=== PATIENT | female | born 1980 | race Caucasian/White ===

== ENCOUNTER 2021-12-08 23:09 | Emergency (ER) | payer OTHER, SELFPAY ==
--- NOTE | 2021-12-08 23:15 | RT.EKG_ITS ---
APPROVED REPORT Exam: Resting ECG Reason for Exam: IRREGULAR HEART BEAT Patient Location: E HR:66 bpm ECG Measurements Heart Rate 66 AXIS MS 145 P 78 QRSd 87 QRS 51 QT 407 T -11 QTc 427 Conclusion Sinus rhythm...normal P axis, V-rate 60- 99 Anteroseptal infarct, old...Q >40mS, V1-V2 Physician: No stemi, inverted t wave in V1 and III. Intervals normal
[2021-12-08 23:18] VITALS: BP 149/82; PULSE 73; RESP 16; TEMP 36.6
[2021-12-08 23:48] LABS: Abs Immature Grans 0.02 10^3/uL (0.0-0.06); Absolute Basophil Count 0.04 10^3/uL (0.0-0.2); Absolute Eosinophil Count 0.07 10^3/uL (0.0-0.7); Absolute Lymphocyte Count 1.85 10^3/uL (1.2-3.4); Absolute Monocyte Count 0.45 10^3/uL (0.1-0.8); Basophils % 0.6; Eosinophils % 1.1; HCT 42.8 % (36.0-46.0); HGB 14.8 g/dL (11.2-15.7); Immature Grans % 0.3; Lymphocytes % 28.3; MCHC 34.6 % (32.0-36.0); MCV 87 fL (80-95); MPV 9.6 fL (8.0-11.0); Monocytes % 6.9; Neutrophils % 62.8; Platelet Count 269 10^3/uL (130-400); RBC 4.93 10^6/uL (3.93-5.22); RDW-SD 38.2 fL; WBC 6.53 10^3/uL (4.4-10.8)
[2021-12-08] MEDS: Normal Saline 1,000 ML 1000 ML IV (23:49)
[2021-12-09] VITALS (50 sets, daily range): BP systolic 94–111; BP diastolic 43–66; PULSE 43–65; RESP 7–21; O2SAT 95–100
[2021-12-09 00:15] LABS: ALT 28 U/L (14-59); AST 24 U/L (15-37); Alkaline Phosphatase 76 U/L (46-116); Anion Gap 9.9 mmol/L (3-11); BUN 19 mg/dL (7-18); Bilirubin, Total 0.4 mg/dL (0.2-1.0); CO2 25.1 mmol/L (21.0-32.0); CREATININE 0.9 mg/dL (0.55-1.02); Calcium 9.3 mg/dL (8.5-10.1); Chloride 104 mmol/L (98-107); Glucose 107 mg/dL (74-106); Magnesium 1.9 mg/dL (1.8-2.4); Potassium 3.2 mmol/L (3.5-5.1); Sodium 139 mmol/L (136-145); TSH (W/Ref FT4) 3.41 uIU/mL (0.36-3.74); Total Protein 7.1 g/dL (6.4-8.2); Troponin I < 50 ng/L (<or=60)
[2021-12-09 00:30] LABS: D-Dimer 159 ng/mlFEU (<500)
[2021-12-09 00:40] LABS: NT-proBNP 118 pg/mL (<300)
[2021-12-09] MEDS: Potassium Chloride 20 MEQ TABCR 40 MEQ PO (01:05)
--- NOTE | 2021-12-09 01:44 | W.ED.GENAD ---
Discharge Plan Disposition Patient Disposition: HOME Condition: Good Discharge Details Clinical Impression: Cardiac dysrhythmia ED Provider: Sanjay Gatica Discharge Instructions Instructions: Supraventricular Tachycardia (ED) Additional Instructions: At this time based on your history and your work-up it is suspected that you had supraventricular tachycardia that caused her heart rate to go up. Unfortunately since we are not able to catch this on the monitor we we will need to perform a prolonged monitoring of your heart. Holter monitor has been placed, and this will record any potential dysrhythmia. Please contact your primary care provider and follow-up with them by early next week to discuss the results and potential treatment management. For the next week please avoid any vigorous activity or strenuous exercise. Please avoid any caffeine, chocolate, or stimulants. Please stay well-hydrated and do your best to relax. If you notice any worsening of your symptoms, or any new symptoms such as vomiting, diarrhea, fever, chills, shortness of breath, chest pain, numbness, weakness, or fainting , please return immediately to the emergency department for reevaluation. Please follow up with your primary care provider as soon as possible for reassessment and reevaluation. As always, it was a pleasure participating in your medical care today. 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 Patient states that at 2:30 PM she was sitting doing normal activity when she noticed her heart rate climb. She was wearing an apple watch and monitored it and her heart rate went up to 200 bpm. It lasted for 2 to 3 minutes and then resolved on its own. Patient was fine throughout the rest of the day, then at 9:45 at night while she was resting in bed her heart rate again climbed and raised to 150, it lasted for about a minute and then resolved on its own. During these episodes she denies any chest pain, chest tightness, lightheadedness, numbness, tingling or weakness. She states that she did exercise earlier today and went for a long bike ride where her average heart rate was around 150. She had no complications or abnormalities then. She drank a single cup of coffee this morning which is normal for her. She denies any cocaine use. She denies any illicit drug use whatsoever. She denies any previous personal or family history of cardiac etiology or problems. She is not on any control. She denies any recent long flights or procedures. No other complaints at this time. Currently she states she feels asymptomatic. Physical exam demonstrates a notably well-appearing, fit, and in no acute distress female. She has no large neck girdle, no clinical evidence of sleep apnea. Review of her apple watch data demonstrates that her heart rate did get up to 200 in the afternoon and 150 in the evening. Unfortunately she did not perform the EKG function while this occurred. With no family history of SVT, and no other significant concerning risk factors of cocaine, or history of thyroid dysfunction, I would suspect that this episode was just a episode of SVT rather than A. fib or V. tach especially as she had no other clinical symptomatology of concern for lightheadedness or syncope. Bedside limited echo was performed and demonstrates no signs of significant abnormality, pericardial effusion, or diminished ejection fraction. We will rehydrate, monitor for concerning etiologies, get a D-dimer to rule out potential blood clot, evaluate for heart strain and get a proBNP, monitor closely and reassess 1:57 AM Laboratory work-up is returned and is notably unremarkable, CBC and electrolytes are all normal aside for a potassium that is slightly low at 3.2. She will be given 40 mEq of potassium orally. Thyroid function normal, troponin normal, proBNP normal, D-dimer negative. Patient has remained on the cardiac rehab nurse here and has had no further episodes of SVT or dysrhythmia whatsoever. EKG is unremarkable with normal intervals. Patient feels well. I discussed inpatient admission, versus discharge. Patient's is currently in the [facility], she does have her children at home but someone is watching them. At this time through shared decision-making process the patient like to hold off on admission, but we will watch the patient here in the emergency department this evening, and have respiratory therapy placed a Holter monitor in the morning. 7:01 AM Patient was monitored throughout the night, she is doing well, had no further episodes of SVT. Patient remained stable for discharge. We will plan Holter monitor and discharge. She will contact primary care provider in [facility] for close follow-up. Discussed red flags which to return. I have extensively reviewed the treatment plan and discharge instructions with the patient. I have addressed all patient concerns at this time. The patient was made aware of what symptoms to monitor for that would warrant a return to the emergency department. Discussed the plan with the patient, they demonstrate verbal understanding and agreement with our assessment and plan at this time. The documentation in this chart was dictated using [employer] dictation software. Please excuse any dictation errors. HPI General Date/Time Provider Initiated Documentation: 12/08/21 23:16. 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 Patient states that at 2:30 PM she was sitting doing normal activity when she noticed her heart rate climb. She was wearing an apple watch and monitored it and her heart rate went up to 200 bpm. It lasted for 2 to 3 minutes and then resolved on its own. Patient was fine throughout the rest of the day, then at 9:45 at night while she was resting in bed her heart rate again climbed and raised to 150, it lasted for about a minute and then resolved on its own. During these episodes she denies any chest pain, chest tightness, lightheadedness, numbness, tingling or weakness. She states that she did exercise earlier today and went for a long bike ride where her average heart rate was around 150. She had no complications or abnormalities then. She drank a single cup of coffee this morning which is normal for her. She denies any cocaine use. She denies any illicit drug use whatsoever. She denies any previous personal or family history of cardiac etiology or problems. She is not on any control. She denies any recent long flights or procedures. No other complaints at this time. Currently she states she feels asymptomatic. Related Data Allergies Allergy/AdvReac Type Severity Reaction Status Date / Time No Known Allergies Allergy Unverified 12/08/21 23:25 General Stated Complaint: Palpitatns ELENA: 2 Review of Systems All systems reviewed & are unremarkable except as noted in HPI and below PFSH All Active Problems (Updated 12/09/21 @ 02:01 by Sanjay Gatica DO) Cardiac dysrhythmia (Acute) Social History Smoking risk assessment performed?: No Exam Narrative Exam Narrative: 1.Const: Well-nourished, Well-developed, appearing stated age 2.Eyes: PERRL, no conjunctival injection, and symmetrical lids. 3.ENT: Atraumatic external nose and ears. Moist MM. Neck: Symmetric, trachea midline, No thyromegaly. 4.CVS: +S1/S2, No murmurs or gallops. Peripheral pulses 2+ and equal in all extremities. Brisk capillary refill in all extremities. 5.RESP: Unlabored respiratory effort. Clear to auscultation bilaterally. No wheezes rales or rhonchi 6.GI: Soft, Nontender/Nondistended, No hepatosplenomegaly. No guarding or rebound. 7.MSK: Normocephalic/Atraumatic, Extremities w/o deformity or ttp No cyanosis or clubbing, Normal movement of all extremities 8.Skin: Warm, Dry. No rashes or lesions. 9.Neuro: bottom brusher II-XII grossly intact. Sensation grossly intact, no focal neurologic deficits. 10.Psych: (AAO) x3. Appropriate mood and affect Course Vital Signs Vital signs: Vital Signs Temperature 36.6 C 12/08/21 23:18 Pulse 73 12/08/21 23:18 Respiratory Rate 16 12/08/21 23:18 Blood Pressure 149/82 H 12/08/21 23:18 Temperature 36.6 C 12/08/21 23:18 Temperature Source Skin 12/08/21 23:18 Pulse 73 12/08/21 23:18 Respiratory Rate 16 12/08/21 23:18 Blood Pressure 149/82 H 12/08/21 23:18 Blood Pressure Position Supine 12/08/21 23:18 Oxygen Delivery Method Room Air 12/08/21 23:18 Oxygen Flow Rate 0 12/08/21 23:18 End Tidal Co2 0 12/08/21 23:18 Lab/Test Results Lab/Test Results: Laboratory Tests Range/Units 12/08/21 12/08/21 12/08/21 23:45 23:45 23:45 WBC (4.4-10.8) 10^3/uL 6.53 RBC (3.93-5.22) 10^6/uL 4.93 Hgb (11.2-15.7) g/dL 14.8 Hct (36.0-46.0) % 42.8 MCV (80-95) fL 87 MCH (27.0-33.0) pg 30.0 MCHC (32.0-36.0) % 34.6 RDW (11.7-14.6) % 12.0 Plt Count (130-400) 10^3/uL 269 MPV (8.0-11.0) fL 9.6 Immature Gran % 0.3 Neutrophils % 62.8 Lymphocytes % 28.3 Monocytes % 6.9 Eosinophils % 1.1 Basophils % 0.6 Nucleated RBC % (0.0-0.3) % 0.0 Absolute Neutrophils (1.2-6.7) 10^3/uL 4.10 Absolute Lymphocytes (1.2-3.4) 10^3/uL 1.85 Absolute Monocytes (0.1-0.8) 10^3/uL 0.45 Absolute Eosinophils (0.0-0.7) 10^3/uL 0.07 Absolute Basophils (0.0-0.2) 10^3/uL 0.04 D-Dimer (<500) ng/mlFEU 159 Sodium (136-145) mmol/L 139 Potassium (3.5-5.1) mmol/L 3.2 L Chloride (98-107) mmol/L 104 Carbon Dioxide (21.0-32.0) mmol/L 25.1 Anion Gap (3-11) mmol/L 9.9 BUN (7-18) mg/dL 19 H Creatinine (0.55-1.02) mg/dL 0.9 Estimated GFR/1.73 m2 (mL/min/1.73m2) >= 60.00 Glucose (74-106) mg/dL 107 H Calcium (8.5-10.1) mg/dL 9.3 Magnesium (1.8-2.4) mg/dL 1.9 Total Bilirubin (0.2-1.0) mg/dL 0.4 AST (15-37) U/L 24 ALT (14-59) U/L 28 Alkaline Phosphatase (46-116) U/L 76 Troponin I (<or=60) ng/L < 50 NT-Pro-B Natriuret Pep (<300) pg/mL 118 Total Protein (6.4-8.2) g/dL 7.1 Albumin (3.4-5.0) g/dL 4.0 TSH (0.36-3.74) uIU/mL 3.41 POC- Test(urine) Negative
--- OUTSIDE RECORDS SUMMARY | 2021-12-09 07:21 | XMS_ITS | Encounter Summary ---
:1980 Author Organization [facility] [place] [address] Care Team Providers Name Role Phone Bib Leonardo MD Primary Care Provider Encounter Details Date Type Department Care Team Description 09/18/2021 Telephone Primary Care at [facility] Beth Gutierres, RN [address] [place] [address] Social History Tobacco Use Types Packs/Day Years Used Date Never Smoker Smokeless Tobacco: Never Used Alcohol Use Standard Drinks/Week Comments Yes 0 (1 standard drink = 0.6 oz pure alcoho l) Sex Assigned at Date Recorded Female 12/22/2020 8:06 AM EDT documented as of this encounter Miscellaneous Notes Telephone Encounter - Beth Gutierres RN - 09/18/2021 9:02 AM EDT Spoke with patient- Given below information She verbalizes understanding Telephone Encounter - Beth Gutierres RN - 09/18/2021 8:49 AM EDT ----- Message from Bib Leonardo MD sent at 09/17/2021 3:53 PM EDT ----- Negative covid test documented in this encounter Plan of Treatment Upcoming Encounters Date Type Specialty Care Team Description 12/11/2021 Office Visit Primary Care Harsh Holley, RETAIL TIRE SALES MANAGER [address] [place], [place] [address] (Wo rk) 12/16/2021 Appointment Radiology Bib Leonardo MD [address] [place], [place] [address] (Wo rk) documented as of this encounter Visit Diagnoses Not on filedocumented in this encounter Care Teams Operations Recruiter Relationship Specialty Start Date End Date Bib Leonardo MD PCP - General Family Medicine 06/01/16 [address] [place] [address] documented as of this encounter
--- OUTSIDE RECORDS SUMMARY | 2021-12-09 07:21 | XMS_ITS | Encounter Summary ---
:1980 Author Organization [facility] [place] [address] Care Team Providers Name Role Phone Bib Leonardo MD Primary Care Provider Encounter Details Date Type Department Care Team Description 06/01/2021 External Results [facility] Provider, His [email or web address] Rosalina lara MD Services None [address] [place] [address] Social History Tobacco Use Types Packs/Day Years Used Date Never Smoker Smokeless Tobacco: Never Used Alcohol Use Standard Drinks/Week Comments Yes 0 (1 standard drink = 0.6 oz pure alcoho l) Sex Assigned at Date Recorded Female 12/22/2020 8:06 AM EDT documented as of this encounter Plan of Treatment Upcoming Encounters Date Type Specialty Care Team Description 12/11/2021 Office Visit Primary Care Harsh Holley APRN [address] [place], [place] [address] (Wo rk) 12/16/2021 Appointment Radiology Bib Leonardo MD [address] [place], [place] [address] (Wo rk) documented as of this encounter Procedures Procedure Name Priority Date/Time Associated Diagnosis Comme nts EXTERNAL COVID-19 PCR Routine 05/28/2021 Result s for this procedure are i n the results section . documented in this encounter Results (ABNORMAL) External COVID-19 PCR (05/28/2021) [facility] Method Time Signature SARS-CoV-2 Not Detected Not EXTERNAL LAB RNA (External Detected, (External) Lab) Indetermina te, Invalid SARS-CoV-2 Other EXTERNAL LAB RNA Source (External (External) Lab) Comment: Not Specified Specimen (Source) Anatomical Location Collection Method / Collectio n Time Received Time / Laterality Volume 05/28/2021 Narrative This result has an attachment that is no t available. Bib Leonardo MD POINT OF CARE TEST ORDERABLE S Performing Organization Address City/State/ZIP Code Phon e Number EXTERNAL FACILITY EXTERNAL LAB documented in this encounter Visit Diagnoses Not on filedocumented in this encounter Care Teams Director Reactor Projects Relationship Specialty Start Date End Date Bib Leonardo MD PCP - General Family Medicine 06/01/[address] [place] [id number] documented as of this encounter
--- OUTSIDE RECORDS SUMMARY | 2021-12-09 07:21 | XMS_ITS | Encounter Summary ---
:1980 Author Organization [facility] [place] [address] Care Team Providers Name Role Phone Bib Leonardo MD Primary Care Provider Reason for Visit Reason Onset Date Comments Results 06/01/2021 Encounter Details Date Type Department Care Team Description 06/01/2021 Telephone Primary Care at [facility] Kenia Clement RN Results [address] [place] [address] Social History Tobacco Use Types Packs/Day Years Used Date Never Smoker Smokeless Tobacco: Never Used Alcohol Use Standard Drinks/Week Comments Yes 0 (1 standard drink = 0.6 oz pure alcoho l) Sex Assigned at Date Recorded Female 12/22/2020 8:06 AM EDT documented as of this encounter Miscellaneous Notes Telephone Encounter - Kenia Clement RN - 06/01/2021 5:02 PM EST I left a detailed message on [employer] that covid test was negative. asking for a call back if thereare any questions. Telephone Encounter - Kenia Clement RN - 06/01/2021 4:50 PM EST ----- Message from Bib Leonardo MD sent at 06/01/2021 1:18 PM EST ----- Not detected documented in this encounter Plan of Treatment Upcoming Encounters Date Type Specialty Care Team Description 12/11/2021 Office Visit Primary Care Harsh Holley APRN [address] [place], [place] [address] (Wo rk) 12/16/2021 Appointment Radiology Bib Leonardo MD [address] [place], [place] [address] (Wo rk) documented as of this encounter Visit Diagnoses Not on filedocumented in this encounter Care Teams Senior Electronics Technician Relationship Specialty Start Date End Date Bib Leonardo MD PCP - General Family Medicine 06/01/16 [address] [place] [address] documented as of this encounter
--- OUTSIDE RECORDS SUMMARY | 2021-12-09 07:21 | XMS_ITS | Encounter Summary ---
:1980 Author Organization [facility] [place] [address] Care Team Providers Name Role Phone Apple Leonardo MD Primary Care Provider Encounter Details Date Type Department Care Team Description 12/08/2021 Telephone Primary Care at [facility] Agnes Doyle RN [address] [place] [address] Social History Tobacco Use Types Packs/Day Years Used Date Never Smoker Smokeless Tobacco: Never Used Alcohol Use Standard Drinks/Week Comments Yes 0 (1 standard drink = 0.6 oz pure alcoho l) Sex Assigned at Date Recorded Female 12/22/2020 8:06 AM EDT documented as of this encounter Miscellaneous Notes Telephone Encounter - Agnes Doyle RN - 12/08/2021 4:15 PM EDT Caller: Gretel Mendoza Relationship: Self Clarified Two Patient Identifiers: [x] Reason For Call: episode of racing heart Assessment/Symptom Review (onset, location, duration, what makes it better or worse, pertinent positives and negatives): Spoke with pt. She is currently [place] in [facility] at her vacation home. She reports that earlier today her HR jumped in the middle of the day up to 200. She said that she called EMS and by the time they came her HR was back to normal She said that this lasted about 5 minutes She denies any chest pain or sob, she said that she felt a little bit light headed She denies any further episodes of tachycardia. She said that her HR is currently normal. She said that she feels ok maybe a little shaky She said that she had exercise this am as usual, she denies having more caffeine than usual, she denies that she felt anxious, she denies anything new in her routine. She is asking if she could be seen when she returns to the area on Tuesday and she tentatively accepted appt 12/11/21 She has been instructed to return to the ER if she has any further episodes of tachycardia She is asking if PCP thinks that she should see a specialist while [place] or if she should be seensooner than Tuesday. Will forward to Dr. Leonardo for review Review of Systems Related to Reason for Call: System POS NEG Not Applicable Head (ENT /Neuro) [] [] [x] Cardiac [x] [] [] Respiratory [] [] [x] GI [] [] [x] [] [] [x] Musculoskeletal [] [] [x] Integumentary [] [] [x] Mental Health [] [] [x] Select Specific Decision Support Tool Used: Telephone Triage Protocols for Nurses, 6th Edition, Bianca Stanton, 2020 Name of Guideline/Protocol Used: heart rate problems Disposition/Plan of Care: Defer to provider recommendation Patient/Caregiver verbalizes understanding of plan of care: Yes Patient/Caregiver agrees with plan: Yes Advised patient/caregiver to: call office back for any new or worsening symptoms Patient/Caregiver demonstrates understanding via teach back: Yes Telephone Encounter - Agnes Doyle RN - 12/08/2021 4:12 PM EDT Copied from [facility] #[id number]. Topic: Triage - Triage >> Dec 08, 2021 3:57 PM Evangelina Kaur wrote: Symptom: Urgent Care Follow Up PCP: APPLE LEONARDO Additional Comments: Patient called emergency staff today while on vacation [place] as she was experiencing an abnormal heart rate. By the time the ambulance arrived, she was no longer experiencing the symptoms. Staff encouraged patient to follow up with her PCP. Patient is feeling better and is hoping to have a visit when she returns on Tuesday. This agent was unable to schedule within 24-48 hour timeframe. Please call patient back to discuss. documented in this encounter Plan of Treatment Upcoming Encounters Date Type Specialty Care Team Description 12/11/2021 Office Visit Primary Care Harsh Holley APRN [address] [place], [place] [address] (Wo rk) 12/16/2021 Appointment Radiology Apple Leonardo MD [address] [place], [place] [address] (Wo rk) documented as of this encounter Visit Diagnoses Not on filedocumented in this encounter Care Teams Lime Hide Inspector Relationship Specialty Start Date End Date Apple Leonardo MD PCP - General Family Medicine 06/01/16 [address] [place] [address] documented as of this encounter
--- OUTSIDE RECORDS SUMMARY | 2021-12-09 07:21 | XMS_ITS | Encounter Summary ---
:1980 Author Organization [facility] [place] [address] Care Team Providers Name Role Phone Bib Leonardo MD Primary Care Provider Encounter Details Date Type Department Care Team Description 09/17/2021 External Results [facility] Provider, His [employer] Rosalina lara MD Services None [address] [place] [address] Social History Tobacco Use Types Packs/Day [...] Visit Primary Care Harsh Holley APRN [address] [place], [place] [address] (Wo rk) 12/16/2021 Appointment Radiology Bib Leonardo MD [address] [place], [place] [address] (Wo rk) documented as of this encounter Procedures Procedure Name Priority Date/Time Associated Diagnosis Comme nts EXTERNAL COVID-19 PCR Routine 09/15/2021 Result s for this procedure are i n the results section . documented in this encounter Results External COVID-19 PCR (09/15/2021) [facility] Method Time Signature SARS-CoV-2 Not Detected Not EXTERNAL LAB RNA Detected, (External) Indetermina te, Invalid SARS-CoV-2 Other EXTERNAL LAB RNA Source (External) Comment: not specified Specimen (Source) Anatomical Location Collection Method / Collectio n Time Received Time / Laterality Volume 09/15/2021 Narrative This result has an attachment that is no t available. Bib Leonardo MD POINT OF CARE TEST ORDERABLE S Performing Organization Address City/State/ZIP Code Phon e Number EXTERNAL FACILITY EXTERNAL LAB documented in this encounter Visit Diagnoses Not on filedocumented in this encounter Care Teams Transformer Repairer Relationship Specialty Start Date End Date Bib Leonardo MD PCP - General Family Medicine 06/01/[address] [place] [id number] documented as of this encounter
--- OUTSIDE RECORDS SUMMARY | 2021-12-09 07:21 | XMS_ITS | Clinical Summary ---
:1980 Author Organization [facility] [place] [address] Care Team Providers Name Role Phone Bib Leonardo MD Primary Care Provider Allergies Active Allergy Reactions Severity Noted Date Comments Cat Dander Shortness Of Breath High 06/08/2015 watery e yes Dog Dander Shortness Of Breath High 06/08/2015 Watery e ys Medications Medication Sig Dispensed Refills Start Date End Date Status valACYclovir (VALTREX) Take 1 tablet by 90 tablet 0 12/22/2020 Active 1 gram mouth daily. TabletIndications: H/O cold sores albuteroL 90 Inhale 2 puffs 1 each 0 12/22/2020 A ctive mcg/actuation HFA into the lungs Aerosol Inhaler every 4 hours as needed for Wheezing. Active Problems Problem Noted Date H/O cold sores 12/22/2020 Last Assessment & Plan: Formatting of th is note might be different from the original. Rx sent for Valtrex to use PRN. Milia of eyelid of left eye 12/22/2020 Last Assessment & Plan: Formatting of th is note might be different from the original. Reassurance provided. Patient would like referral to dermatology for larger milia in medial canthus. Referral placed. Breast lump in female 07/19/2019 Last Assessment & Plan: Formatting of th is note might be different from the original. Fibrocystic breasts Will get an ultrasound and mammogram Gave her info on fibrocystic breasts Advised to avoid coffee, wear support br as Annual physical exam 09/04/2018 Last Assessment & Plan: Formatting of th is note might be different from the original. Normal exam. reviewed and updated. Labs drawn today. Pap collected. Encouraged healthy lifestyle, exercise a nd balanced diet. Discussed self breast exam, safety, stre ss management. Patient to follow up in 1 year for next SPE, sooner if needed. Bilateral bunions 08/09/2016 Last Assessment & Plan: Formatting of th is note might be different from the original. Referral placed to podiatry. Multiple benign nevi 08/09/2016 Last Assessment & Plan: Formatting of th is note might be different from the original. No specific areas of concern. Derm referral entered for routine check. Encounter for general adult medical examination withou t abnormal findings 10/03/2014 Last Assessment & Plan: Formatting of th is note might be different from the original. Doing well. All histories reviewed and u pdated. Mammogram up to date. Preventive labs from last year reviewed. She has received COVID vaccine. Pneumovax given today. Encouraged diet and exercise. Next physical due in 1 year. All questions and concerns were addresse d. Asthma 09/17/2014 Last Assessment & Plan: Formatting of th is note might be different from the original. Rare MDI use. Medication refilled. Resolved Problems Problem Noted Date Resolved Date Fracture of metacarpal base of left hand, closed 06/14/2016 08/09/2016 Encounter for gynecological examination without abnormal 01/201508/09/2016 finding Encounter for screening for malignant neoplasm of cervix 01/201508/09/2016 Rash 10/03/2014 08/09/2016 Encounters Date Type Specialty Care Team Description 12/08/2021 Telephone Primary Care Agnes Doyle RN 09/18/2021 Telephone Primary Care Beth Gutierres RN 09/17/2021 External Results Provider, His Keith Josue from Last 3 Months Immunizations Name Administration Dates Next Due AstraZeneca Covid-19 Vaccine (Non-US) 09/10/2020 Influenza Vaccine PF, Quadrivalent 03/28/2019 Pfizer Covid-19 (Purple Cap) Vaccine (12yrs+) 11/23/2020, Pneumococcal Polyvalent 23 12/22/2020 Tdap Vaccine 07/26/2013 Family History Medical History Relation Comments No Known Problems Daughter No Known Problems Father No Known Problems Maternal Aunt No Known Problems Maternal Grandfather No Known Problems Maternal Grandmother No Known Problems Maternal Uncle No Known Problems Mother No Known Problems Other No Known Problems Paternal Aunt 1 Bipolar Disorder Paternal Aunt 2 Depression Paternal Aunt 2 No Known Problems Paternal Grandfather Dementia Paternal Grandmother No Known Problems Paternal Uncle No Known Problems Sister Relation Status Comments Daughter Father Maternal Aunt Maternal Grandfather Maternal Grandmother Maternal Uncle Mother Other Paternal Aunt 1 Paternal Aunt 2 Paternal Grandfather Paternal Grandmother Paternal Uncle Sister Alive Social History Tobacco Use Types Packs/Day Years Used Date Never Smoker Smokeless Tobacco: Never Used Alcohol Use Standard Drinks/Week Comments Yes 0 (1 standard drink = 0.6 oz pure alcoho l) Sex Assigned at Date Recorded Female 12/22/2020 8:06 AM EDT Last Filed Vital Signs Vital Sign Reading Time Taken Comments Blood Pressure 114/72 12/22/2020 1:27 PM EDT Pulse 54 12/22/2020 1:27 PM EDT Temperature 36.8 ??C (98.2 ??F) 12/22/2020 1:27 PM EDT Respiratory Rate 16 12/22/2020 1:27 PM EDT Oxygen Saturation 99% 12/22/2020 1:27 PM EDT Inhaled Oxygen Concentration - - Weight 58.5 kg (129 lb) 12/22/2020 1:27 PM EDT Height 161.7 cm (5' 3.66) 12/22/2020 1:27 PM EDT measu red Body Mass Index 22.38 12/22/2020 1:27 PM EDT Plan of Treatment Upcoming Encounters Date Type Specialty Care Team Description 12/11/2021 Office Visit Primary Care Harsh Holley APRN [address] [place] [id number] (Wo rk) 12/16/2021 Appointment Radiology Bib Leonardo MD [address] [place], [place] [address] (Wo rk) Health Maintenance Due Date Last Done Comments Hepatitis C Screening 1998 Breast Cancer Share 2020 Decision Needed Pneumococcal Vaccine: 12/22/2021 12/22/2020 At-Risk 5-64yrs (2 - PCV) Influenza (Flu) vaccine (1 01/14/2022 03/28/2019 of 1 - Influenza standard series) Tetanus vaccine 07/27/2023 07/26/2013 HPV test 07/05/2024 07/05/2019, 10/22/2014 (Report in e[facility]) PAP Smear 07/05/2024 07/05/2019, 10/22/2014, 03/09/2010 HIV screen Addressed 05/16/2013 (Outside Overridden w ith the per patient (enter intention of not details in comments)) completing the topic Tdap adult Completed 07/26/2013 Covid-19 Vaccine Completed 11/23/2020, 10/15/2020, 09/10/2020 Procedures Procedure Name Priority Date/Time Associated Diagnosis Comme nts EXTERNAL COVID-19 PCR Routine 09/15/2021 Result s for this procedure are i n the results section . from Last 3 Months Results External COVID-19 PCR (09/15/2021) [facility] Method Time Signature SARS-CoV-2 Not Detected Not [...] Phon e Number EXTERNAL FACILITY EXTERNAL LAB from Last 3 Months Insurance Payer Benefit Plan / Subscriber ID Effective Dates Phone Addre ss Type Group AETNA AETNA PPO OPEN [id number] 2019-Present [phone] [address] [place] [address] Advance Directives Documents on File Type Date Recorded Patient Balloon Dipper Explanati on Advance Directives and Living 12/08/2020 11:29 AM Will Care Teams Smoking Pipe Coater Relationship Specialty Start Date End Date Bib Leonardo MD PCP - General Family Medicine 06/01/[address] [place] [id number]
--- OUTSIDE RECORDS SUMMARY | 2021-12-09 07:21 | XMS_ITS | Encounter Summary ---
:1980 Author Organization [facility] [place] [address] Care Team Providers Name Role Phone Bib Leonardo MD Primary Care Provider Encounter Details Date Type Department Care Team Description 07/06/2021 External Results [facility] Provider, His [employer] Rosalina lara MD Services None [address] [place] [address] Social History Tobacco Use Types Packs/Day [...] Visit Primary Care Harsh Holley APRN [address] [place], [place] [address] (Wo rk) 12/16/2021 Appointment Radiology Bib Leonardo MD [address] [place], [place] [address] (Wo rk) documented as of this encounter Procedures Procedure Name Priority Date/Time Associated Diagnosis Comme nts EXTERNAL COVID-19 PCR Routine 07/02/2021 Result s for this procedure are i n the results section . documented in this encounter Results External COVID-19 PCR (07/02/2021) [facility] Method Time Signature SARS-CoV-2 Not Detected Not EXTERNAL LAB RNA Detected, (External) Indetermina te, Invalid SARS-CoV-2 Other EXTERNAL LAB RNA Source (External) Comment: Not Specified Specimen (Source) Anatomical Location Collection Method / Collectio n Time Received Time / Laterality Volume 07/02/2021 Narrative This result has an attachment that is no t available. Bib Leonardo MD POINT OF CARE TEST ORDERABLE S Performing Organization Address City/State/ZIP Code Phon e Number EXTERNAL FACILITY EXTERNAL LAB documented in this encounter Visit Diagnoses Not on filedocumented in this encounter Care Teams Night Stocker Relationship Specialty Start Date End Date Bib Leonardo MD PCP - General Family Medicine 06/01/[address] [place] [address] documented as of this encounter
--- OUTSIDE RECORDS SUMMARY | 2021-12-09 07:22 | XMS_ITS | Encounter Summary ---
:1980 Author Organization [facility] [place] [address] Care Team Providers Name Role Phone Bib Leonardo MD Primary Care Provider Reason for Visit Reason Comments Vaginal Itching Encounter Details Date Type Department Care Team Description 05/02/2018 Office Visit Urgent Care at [facility] Lou Arteaga MD Acute vaginitis [address] [place] [phone] [place] [address] [phone] (Wo rk) Social History Tobacco Use Types Packs/Day Years Used Date Never Smoker Smokeless Tobacco: Never Used Sex Assigned at Date Recorded Female 12/22/2020 8:06 AM EDT documented as of this encounter Last Filed Vital Signs Vital Sign Reading Time Taken Comments Blood Pressure - - Pulse 52 05/02/2018 2:02 PM EST Temperature 36.9 ??C (98.4 ??F) 05/02/2018 2:02 PM EST Respiratory Rate - - Oxygen Saturation 98% 05/02/2018 2:02 PM EST Inhaled Oxygen Concentration - - Weight 58.5 kg (129 lb) 05/02/2018 2:02 PM EST Height - - Body Mass Index 22.13 12/26/2017 10:26 AM EDT documented in this encounter Patient Instructions Patient InstructionsLou Arteaga MD - 05/02/2018 1:50 PM EST Take Diflucan today. You can continue monistat or OTC lotrimin if desired. If itching/discomfort doesn't improve then start using the Westcort cream there twice a day. documented in this encounter Progress Notes Lou Arteaga MD - 05/02/2018 1:50 PM EST Subjective: Patient ID: Gretel Mendoza is a 38 y.o. female. Patient C/O vaginal itching x 1 week. She is day 2 of monostat and initially treated with hydrocortisone. She reports she feels like it's Jock itch because she exercises a lot. She doesn't know if there's a rash there or not but the irritation seems external. She denies new sexual partners/contacts She denies vaginal discharge, odor Denies dysuria Reports it just feels irritated/burning on the outside. Has not had any recent antibiotics No new soaps/wipes, undergarments. Vaginal Itching The patient's primary symptoms include genital itching. The patient's pertinent negatives include nogenital lesions, genital odor, genital rash or vaginal discharge. This is a new problem. The currentepisode started in the past 7 days. The problem occurs constantly. The problem has been unchanged. The problem affects both sides. She is not . Pertinent negatives include no abdominal pain, anorexia, back pain, chills, constipation, diarrhea, discolored urine, dysuria, fever, flank pain, frequency, headaches, hematuria, joint pain, joint swelling, nausea, painful intercourse, rash, sore throat, urgency or vomiting. The vaginal discharge was normal. There has been no bleeding. The symptoms are aggravated by activity. Treatments tried: monostat. The treatment provided no relief. Review of Systems Constitutional: Negative for chills and fever. HENT: Negative for sore throat. Gastrointestinal: Negative for abdominal pain, anorexia, constipation, diarrhea, nausea and vomiting. Genitourinary: Positive for vaginal pain. Negative for dysuria, flank pain, frequency, hematuria, urgency, vaginal bleeding and vaginal discharge. Musculoskeletal: Negative for back pain and joint pain. Skin: Negative for rash. Neurological: Negative for headaches. Objective: Physical Exam Constitutional: She appears well-developed and well-nourished. No distress. HENT: Head: Normocephalic and atraumatic. Eyes: Conjunctivae are normal. Neck: Normal range of motion. Cardiovascular: Normal rate, regular rhythm and intact distal pulses. Pulmonary/Chest: Effort normal. Genitourinary: There is no rash, tenderness or lesion on the right labia. There is no rash, tenderness or lesion on the left labia. There is erythema in the vagina. No bleeding in the vagina. No vaginal discharge found. Genitourinary Comments: Normal appearing external genitalia. Very small amount of erythema at vaginal introitus No discharge present No lesions Yeast culture swab obtained. Neurological: She is alert. Skin: No rash noted. Psychiatric: Her behavior is normal. Vitals reviewed. Assessment and Plan: 1. Acute vaginitis Yeast culture Vaginal -unclear etiology, seems most consistent with a external yeast vaginitis/labial infection but there is minimal erythema/rash to suggest this is the cause; no new/significant discharge, single sexual partner no concern for STI per patient -trial of Diflucan -sending yeast culture but patient has been using monistat so I'm not sure it would return positive even if yeast was the cause. If not improving can try Westcort cream to the area. If not improving after that recommend SPECIAL ORDER JEWELER evaluation. Medication ordered or changed during this encounter, will not show discontinued medications Medications ??? fluconazole (DIFLUCAN) 150 mg Tablet Sig: Take 1 tablet by mouth once for 1 dose. May repeat in 7 days if needed Dispense: 2 tablet Refill: 0 ??? hydrocortisone (WESTCORT) 0.2 % Cream Sig: Apply topically 2 times daily. For 7-14 days Dispense: 60 g Refill: 0 documented in this encounter Plan of Treatment Upcoming Encounters Date Type Specialty Care Team Description 12/11/2021 Office Visit Primary Care Harsh Holley APRN [address] [place], [place] [address] (Shila alves) 12/16/2021 Appointment Radiology Bib Leonardo MD [address] [place], [place] [address] (Shila alves) documented as of this encounter Procedures Procedure Name Priority Date/Time Associated Diagnosis Comme nts YEAST CULTURE Routine 05/02/2018 5:55 PM Acute vaginitis Resul ts for this EST procedure are i n the results section . documented in this encounter Results Yeast culture Vaginal (05/02/2018 5:55 PM EST) [facility] Method Time Signature Yeast Culture No Yeast [facility] LABORATORY Specimen Anatomical Collection Method Collection Time Receive d Time (Source) Location / / Volume Laterality Vaginal 05/02/2018 5:55 PM 8 8:25 EST PM EST Resulting Agency Comment Spec In Lab Lou Arteaga MD MICROBIOLOGY - GENERAL ORDER FLAKO Performing Organization Address City/State/[place] [address] documented in this encounter Visit Diagnoses Diagnosis Acute vaginitis Vaginitis and vulvovaginitis, unspecifie d Visit for screening mammogram Other screening mammogram documented in this encounter Care Teams Prepress Operator Relationship Specialty Start Date End Date Bib Leonardo MD PCP - General Family Medicine 06/01/[address] [place] [phone] documented as of this encounter
--- OUTSIDE RECORDS SUMMARY | 2021-12-09 07:22 | XMS_ITS | Encounter Summary ---
:1980 Author Organization [facility] [place] [address] Care Team Providers Name Role Phone Bib Leonardo MD Primary Care Provider Reason for Visit Reason Comments Left Hand Pain Consultation (Routine) - Closed Specialty Diagnoses / Procedures Referred By Contact Refer red To Contact Orthopaedics Diagnoses Fracture of metacarpal base of left hand, closed, initial encounter Charleen Benavidez MD Con Orth[facility] [address] [facility] [place] [address] [place] [address] Referral ID Status Reason Start Date Expiration Date Visits V isits Requested Authorized [id number] Closed Consult, 06/14/2016 06/14/2017 1 1 Test & Treat Encounter Details Date Type Department Care Team Description 06/15/2016 Office Visit Orthopaedics at [facility] Fracture, metacarpal [place] [address] [facility] [place] [address] [place] [address] [phone] Social History Tobacco Use Types Packs/Day Years Used Date Never Smoker Sex Assigned at Date Recorded Female 12/22/2020 8:06 AM EDT documented as of this encounter Progress Notes Mariama Zuniga PA - 06/15/2016 11:40 AM EST This is a 36-year-old female who was seen in followup at the request of Charleen Benavidez for evaluation and management of a left 5th metacarpal fracture. This had occurred 8 days ago while she was skiing with her daughter. She states that she had fallen onto the hand somehow. She cannot fully elaborate on the mechanism. She states she was quite sure she had some degree of an injury. It was quite painful in the aftermath of this. She was quite concerned that after a few days, her pain was still persisting. She did confer with a few of her family members who are in medicine who did recommend that she seek medical evaluation. She was seen yesterday in our Urgent Care Center. X-rays were obtained, which were remarkable for a 5th metacarpal fracture. She was referred onto Orthopedics at that time. She complains of pain along the lateral aspect of her hand. She states that the swelling and bruising, which were initially present, are somewhat subsiding. Her pain is stable. No numbness or tingling. She denies any past surgical history to this area or extremity. She may have had an old wrist fracture as a young girl, but nothing recent and was having no issues with the hand or wrist prior to this episode. She presents for evaluation and management. Past medical history was reviewed. Her medications and allergies were reviewed prior to our clinical exam and updated accordingly within her EMR. Physical exam of the left hand revealing some mild residual ecchymosis primarily along the dorsum of the hand. There are no deformities. No current swelling. She is tender from the midshaft of the 5th metacarpal proximally to its base. No visible angulation to the 5th phalanx. Nontender to any of her digits. The 4th metacarpal slightly tender. Nontender to remaining metacarpals. She could actively flex and extend the wrist without any pain or dysfunction. Nontender at the distal radius, and nontender at the ulnar styloid. No snuffbox pain, no soft spot tenderness. She is sensory intact to the radial, ulnar, and median nerve distributions and her radial pulse 2+. RADIOGRAPHIC FINDINGS: AP, lateral, and oblique views of the left hand were interpreted from June 14. This does show evidence of a non-displaced, non-angulated, non-rotated, base of the 5th metacarpal fracture. ASSESSMENT/PLAN: A 36-year-old female presenting 8 days following an injury to her left hand. X-rays revealing a non-displaced, non-angulated, 5th metacarpal fracture. She is seemingly quite stable. Therefore, we are going to just proceed with splinting of this. I did discuss restrictions regarding lifting, athletic-type activities. The splint should only be removed for showering purposes. We will see her back in roughly 10 days for repeat x-rays. She agreed to this treatment and plan and had no other concerns to address today. documented in this encounter Procedure Notes Montserrat Curtis CMA - 06/15/2016 11:40 AM EST Left short arm ulnar gutter splint was applied to patient. Splint was secured with zoran wraps. Patient states splint feels comfortable, not too tight or too loose. Splint care was reviewed with patient,she verbalized understanding and agreement. She had no questions or concerns and was advised to callif she does. Splint was allowed 15 minutes to dry prior to discharge. documented in this encounter Plan of Treatment Upcoming Encounters Date Type Specialty Care Team Description 12/11/2021 Office Visit Primary Care Harsh Holley APRN [address] [place], [place] [address] (Wo rk) 12/16/2021 Appointment Radiology Bib Leonardo MD [address] [place], [place] [address] (Wo rk) Scheduled Referrals Name Type Priority Associated Order Schedule Diagnoses Referral to Outpatient Referral Routine Fracture of Ordered: Orthopaedics metacarpal base of 7 left hand, closed, initial encounter documented as of this encounter Visit Diagnoses Diagnosis Fracture, metacarpal Closed fracture of metacarpal bone(s), s ite unspecified Visit for screening mammogram Other screening mammogram documented in this encounter Care Teams Strategic Sourcing Manager Relationship Specialty Start Date End Date Bib Leonardo MD PCP - General Family Medicine 06/01/16 [address] [place] [address] documented as of this encounter
--- OUTSIDE RECORDS SUMMARY | 2021-12-09 07:22 | XMS_ITS | Encounter Summary ---
:1980 Author Organization [facility] [place] [address] Care Team Providers Name Role Phone Bib Leonardo MD Primary Care Provider Reason for Visit Reason Comments Bilateral Foot Pain Consultation (Routine) - Closed Specialty Diagnoses / Procedures Referred By Contact Refer red To Contact Podiatry Diagnoses Bilateral bunions Mercedes Meade APRN Con Podiatry [address] [place] [address] [place] [address] Referral ID Status Reason Start Date Expiration Date Visits V isits Requested Authorized [id number] Closed Consult, 08/09/2016 08/09/2017 1 1 Test & Treat Encounter Details Date Type Department Care Team Description 08/25/2016 Office Visit Podiatry at [place] Brandon Pedraza Jr., DPM Tailor's bunion [address] [facility] [place] [address] PODIATRY [phone] [place] [address] (Wo rk) Social History Tobacco Use Types Packs/Day Years Used Date Never Smoker Smokeless Tobacco: Never Used Sex Assigned at Date Recorded Female 12/22/2020 8:06 AM EDT documented as of this encounter Progress Notes Brandon Pedraza Jr., DPM - 08/25/2016 3:45 PM EDT Age: 36 y.o. CC: Pain in both feet Past Med Hx: Patient Active Problem List Diagnosis Code ??? Asthma J45.909 ??? Encounter for general adult medical examination without abnormal findings Z00.00 ??? Bilateral bunions M21.611, M21.612 ??? Multiple benign nevi D22.9 Family Hx: Non contributory Social Hx: Non contributory MSK: General: Otherwise well MSK: Verbalizes no other complaints HPI: Gretel Mendoza presents for evaluation of pain in each foot. Quality of Pain: Dull achey pain Severity of Pain: Not enough to stop activity Duration of Pain: Months Timing: Worse with certain shoes Modifying factors: None Objective Exam: General: Well appearing female in NAD Integument: No signs of eccymosis or trauma Vascular Exam: DP and PT pulses palpable, no signs of cyanosis or rubor Neurologic Exam: Grossly intact MSK: Tailors bunion bilateral. Strength and rom all wnl. Imaging findings: Not taken Assessment: Johans bunion Plan: -Discussed condition and treatment options -May consider surgical correction down the road documented in this encounter Plan of Treatment Upcoming Encounters Date Type Specialty Care Team Description 12/11/2021 Office Visit Primary Care Harsh Holley APRN [address] [place], [place] [address] (Wo rk) 12/16/2021 Appointment Radiology Bib Leonardo MD [address] [place], [place] [address] (Wo rk) Scheduled Referrals Name Type Priority Associated Diagnoses Order S chedule Referral to Outpatient Referral Routine Bilateral bunions Ord ered: Podiatry 08/09/2016 documented as of this encounter Visit Diagnoses Diagnosis Tailor's bunion Bunion Visit for screening mammogram Other screening mammogram documented in this encounter Care Teams Bender Hand Relationship Specialty Start Date End Date Bib Leonardo MD PCP - General Family Medicine 06/01/16 [address] [place] [address] documented as of this encounter
--- OUTSIDE RECORDS SUMMARY | 2021-12-09 07:22 | XMS_ITS | Encounter Summary ---
:1980 Author Organization [facility] [place] [address] Care Team Providers Name Role Phone Bib Leonardo MD Primary Care Provider Reason for Visit Reason Comments Skin Lesion Encounter Details Date Type Department Care Team Description 12/05/2019 Office Visit Dermatology at [facility] Willow Goodrich D H PATIENT NOT SEEN Nina FUENTES [address] [place] [address] [facility] [place], [place] [address] Social History Tobacco Use Types Packs/Day Years Used Date Never Smoker Smokeless Tobacco: Never Used Sex Assigned at Date Recorded Female 12/22/2020 8:06 AM EDT documented as of this encounter Progress Notes Willow Goodrich MD - 12/05/2019 10:00 AM EDT This patient was not seen in this encounter. documented in this encounter Plan of Treatment Upcoming Encounters Date Type Specialty Care Team Description 12/11/2021 Office Visit Primary Care Harsh Holley APRN [address] [place], [place] [address] (Wo rk) 12/16/2021 Appointment Radiology Bib Leonardo MD [address] [place], [place] [address] (Wo rk) documented as of this encounter Visit Diagnoses Diagnosis DH PATIENT NOT SEEN Visit for screening mammogram Other screening mammogram documented in this encounter Care Teams Quality Tester Relationship Specialty Start Date End Date Bib Leonardo MD PCP - General Family Medicine 06/01/[address] [place] [id number] documented as of this encounter
--- OUTSIDE RECORDS SUMMARY | 2021-12-09 07:22 | XMS_ITS | Encounter Summary ---
:1980 [place] [address] Care Team Providers Name Role Phone Savanna Wright APRN Primary Care Provider [phone] Encounter Details Date Type Department Care Team Description 12/12/2014 Abstract [facility] Beattie Provider, His Liat, [employer] Information Dwayne miller MD [address] [place] [address] Social History Tobacco Use Types Packs/Day Years Used Date Never Assessed Sex Assigned at Date Recorded Female 12/22/2020 8:06 AM EDT documented as of this encounter Last Filed Vital Signs Vital Sign Reading Time Taken Comments Blood Pressure 104/70 08/29/2014 11:44 AM EDT Pulse - - Temperature - - Respiratory Rate - - Oxygen Saturation - - Inhaled Oxygen Concentration - - Weight 57.6 kg (127 lb) 08/29/2014 11:44 AM EDT Height 162.6 cm (5' 4) 08/29/2014 11:44 AM EDT Body Mass Index 21.8 08/29/2014 11:44 AM EDT documented in this encounter Plan of Treatment Upcoming Encounters Date Type Specialty Care Team Description 12/11/2021 Office Visit Primary Care Harsh Holley APRN [address] [place], [place] [address] (Wo rk) 12/16/2021 Appointment Radiology Bib Leonardo MD [address] [place], [place] [address] (Wo joselyn) documented as of this encounter Procedures Procedure Name Priority Date/Time Associated Diagnosis Comme nts EXTERNAL PAP SMEAR Routine 03/09/2010 Results f or this RESULT PANEL procedure are i n the results section . documented in this encounter Results (ABNORMAL) External Pap Smear (03/09/2010) Analysis Performed At Patho logist Time Signature External PAP LGSIL Smear (External Lab) His Liat Provider POINT OF CARE TEST ORDERABLE S documented in this encounter Visit Diagnoses Not on filedocumented in this encounter Care Teams Kerfer Machine Operator Relationship Specialty Start Date End Date Savanna Wright APRN PCP - General 08/22/14 05/31/[address] [place] [id number] documented as of this encounter
--- OUTSIDE RECORDS SUMMARY | 2021-12-09 07:22 | XMS_ITS | Encounter Summary ---
:1980 Author Organization [facility] [place] [address] Care Team Providers Name Role Phone Bib Leonardo MD Primary Care Provider Reason for Visit Reason Comments Follow Up Fracture Encounter Details Date Type Department Care Team Description 06/30/2016 Office Visit Orthopaedics at Mariama Zuniga PA Fracture, metacarpal [place] [address] [place] [address] [place] [address] [phone] Social History Tobacco Use Types Packs/Day Years Used Date Never Smoker Sex Assigned at Date Recorded Female 12/22/2020 8:06 AM EDT documented as of this encounter Progress Notes Mariama Zuniga PA - 06/30/2016 1:00 PM EST The patient returns to the clinic today for repeat x-rays of her left hand. She is being followed for a base of the fifth metacarpal fracture. Unfortunately, this was not seen in Orthopedics until 8 days following her injury. Thankfully, it was nondisplaced, nonangulated. We did place her in a splint. She tolerated the splint well. She states on the whole she is doing well with some residual pain but does feel as though she is making strides steadily. She is presenting today with no complaints. Physical exam of the left hand revealing no swelling, no edema. There is no ecchymosis. There is perhaps some very mild tenderness right at the base of the fifth metacarpal. There is no angular deformity at the fifth digit. No swelling present. RADIOGRAPH FINDINGS: AP, lateral, and oblique views of the left hand were obtained and interpreted. This continues to reveal some lucency seen at the base of the fifth metacarpal. She is bridged along the medial side. It is her lateral side that does show some lucency. No displacement. No angulation. ASSESSMENT/PLAN: Three and 1/2 weeks status post a left hand base of the fifth metacarpal fracture. She was splinted initially. However, she was not seen in Orthopedics until 8 days following her injury. She tolerated the splint well and x-rays today show interim healing. There is still some residual pain at the fracture site but on the whole she is doing well. We will place the patient in an Jorge wrap for some cushioning. I did discuss being cautious with her activities. We will see her back in 2-1/2 weeks for repeat x-rays and likely final recheck at that time. documented in this encounter Plan of Treatment Upcoming Encounters Date Type Specialty Care Team Description 12/11/2021 Office Visit Primary Care Harsh Holley APRN [address] [place], [place] [address] (Wo rk) 12/16/2021 Appointment Radiology Bib Leonardo MD [address] [place], [place] [address] (Wo rk) documented as of this encounter Results XR Hand Min 3 views Left (Generic) (06/30/2016 1:26 PM EST) Anatomical Region Laterality Modality Hand Left Computed Radiography Specimen (Source) Anatomical Location Collection Method / Collectio n Time Received Time / Laterality Volume Impressions 06/30/2016 1:59 PM EST Nondisplaced left proximal fifth metacarpal fracture, unchanged compared to the prior studies. Narrative 06/30/2016 1:59 PM EST EXAMINATION: XR HAND MIN 3 VIEWS LEFT (GENERIC) CLINICAL HISTORY: left 5th metacarpal fx TECHNIQUE: 3 views of the left hand were obtained. COMPARISON: Comparison is made to the pr ior study of June 14, 2016. FINDINGS: There is been no significant interval ch ramiro in the position of the left proximal fifth metacarpal fracture. No o ther bone or soft tissue abnormality is noted. Procedure Note Willie Bernard MD - 06/30/2016Forma tting of this note might be different from the original. EXAMINATION: XR HAND MIN 3 VIEWS LEFT (G ENERIC) CLINICAL HISTORY: left 5th metacarpal fx TECHNIQUE: 3 views of the left hand were obtained. COMPARISON: Comparison is made to the pr ior study of June 14, 2016. FINDINGS: There is been no significant interval ch ramiro in the position of the left proximal fifth metacarpal fracture. No o ther bone or soft tissue abnormality is noted. IMPRESSION Nondisplaced left proximal fifth metacar pal fracture, unchanged compared to the prior studies. Duke Conner MD IMG DX ORDERABLES documented in this encounter Visit Diagnoses Diagnosis Fracture, metacarpal Closed fracture of metacarpal bone(s), s ite unspecified Visit for screening mammogram Other screening mammogram documented in this encounter Care Teams Master Fisher Relationship Specialty Start Date End Date Bib Leonardo MD PCP - General Family Medicine 06/01/[address] [place] [id number] documented as of this encounter
--- OUTSIDE RECORDS SUMMARY | 2021-12-09 07:22 | XMS_ITS | Encounter Summary ---
:1980 Author Organization [facility] [place] [address] Care Team Providers Name Role Phone Bib Leonardo MD Primary Care Provider Reason for Visit Reason Onset Date Comments Appointment 11/19/2020 Encounter Details Date Type Department Care Team Description 11/19/2020 Telephone Primary Care at [facility] Agnes Doyle RN Appointment [address] [place] [address] Social History Tobacco Use Types Packs/Day Years Used Date Never Smoker Smokeless Tobacco: Never Used Sex Assigned at Date Recorded Female 12/22/2020 8:06 AM EDT documented as of this encounter Miscellaneous Notes Telephone Encounter - Agnes Doyle RN - 11/19/2020 9:43 AM EDT Called pt, went to [facility], mailbox is full Telephone Encounter - Agnes Doyle RN - 11/19/2020 9:30 AM EDT ----- Message from Fiorella Burnham sent at 11/19/2020 9:15 AM EDT ----- Regarding: FW: Request an Appointment Contact: ----- Message ----- From: Gretel Mendoza Sent: 11/19/2020 9:14 AM EDT To: [facility] Subject: Request an Appointment Request submitted by Gretel Mendoza [[id number]] on 11/19/2020 at 9:14:02 AM Form Title: Request an Appointment Submitted Data From: Gretel Mendoza Request appt with: Mercedes Schultz APRN [[id number]] in Primary Care at [place] Would accept with: Next available provider Preferred date range: 11/24/2020 thru 11/24/2020 Preferred times: Mon-Morning Telephone: Need Patternmaker Pressure Cast: No Reason for visit: Breast exam/concerns. Annual mammogram scheduled 12-01 but I would like to see a provider first and move mammo to the same morning 11-24 in [place]. If not possible, then leave as is. documented in this encounter Plan of Treatment Upcoming Encounters Date Type Specialty Care Team Description 12/11/2021 Office Visit Primary Care Harsh Holley APRN [address] [place], [place] [address] (Wo rk) 12/16/2021 Appointment Radiology Bib Leonardo MD [address] [place], [place] [address] (Wo rk) documented as of this encounter Visit Diagnoses Not on filedocumented in this encounter Care Teams Grading Supervisor Relationship Specialty Start Date End Date Bib Leonardo MD PCP - General Family Medicine 06/01/16 [address] [place] [address] documented as of this encounter
--- OUTSIDE RECORDS SUMMARY | 2021-12-09 07:22 | XMS_ITS | Encounter Summary ---
:1980 Author Organization [facility] [place] [address] Care Team Providers Name Role Phone Bib Leonardo MD Primary Care Provider Reason for Visit Reason Comments Annual Exam Encounter Details Date Type Department Care Team Description 07/05/2019 Office Visit Primary Care at Mercedes Meade, Screen ing for malignant neoplasm of cervix; Liat FLORAL DESIGN TEACHER Annual physical exam [address] [place], [place] [facility] [address] [place] [address] [phone] (Wo rk) Social History Tobacco Use Types Packs/Day Years Used Date Never Smoker Smokeless Tobacco: Never Used Sex Assigned at Date Recorded Female 12/22/2020 8:06 AM EDT documented as of this encounter Last Filed Vital Signs Vital Sign Reading Time Taken Comments Blood Pressure 102/60 07/05/2019 8:36 AM EST Pulse 70 07/05/2019 8:36 AM EST Temperature - - Respiratory Rate 14 07/05/2019 8:36 AM EST Oxygen Saturation - - Inhaled Oxygen Concentration - - Weight 59.9 kg (132 lb) 07/05/2019 8:36 AM EST Height 162.6 cm (5' 4) 07/05/2019 8:36 AM EST Measured Body Mass Index 22.66 07/05/2019 8:36 AM EST documented in this encounter Progress Notes Mercedes Schultz, FLORAL DESIGN TEACHER - 07/05/2019 8:30 AM EST Subjective: Patient ID: Gretel Mendoza is a 39 y.o. female. HPI Gretel presents today for an annual exam. Doing well overall. Denies complaints today. Moving to the [facility] in November with her and two children (6 and 8). 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 BP 102/60 (BP Location (NBP): Left arm, Patient Position: Sitting, BP Cuff Sizes: Adult (25-34 cm)) Pulse 70 Resp 14 Ht 162.6 cm (5' 4) Comment: Measured Wt 59.9 kg (132 lb) LMP 06/18/2019 BMI 22.66 kg/m?? Active Ambulatory Problems Diagnosis Date Noted ??? Asthma 09/17/2014 ??? Encounter for general adult medical examination without abnormal findings 10/03/2014 ??? Bilateral bunions 08/09/2016 ??? Multiple benign nevi 08/09/2016 ??? Annual physical exam 09/04/2018 Resolved Ambulatory Problems Diagnosis Date Noted ??? Encounter for gynecological examination without abnormal finding 10/22/2014 ??? Encounter for screening for malignant neoplasm of cervix 10/22/2014 ??? Rash 10/03/2014 ??? Fracture of metacarpal base of left hand, closed 06/14/2016 No Additional Past Medical History Medications 07/05/19 0852 Medication Sig Taking? albuterol 90 mcg/actuation HFA Aerosol Inhaler Inhale 2 puffs into the lungs every 4 hours as neededfor Wheezing. Yes valACYclovir (VALTREX) 1 gram Tablet Take 2 tablets every 12 hours x 24 hours, take SOO after onset Patient not taking: Reported on 2019 Review of Systems Constitutional: Negative for activity change, appetite change, chills, fever and unexpected weight change. HENT: Negative for ear pain, hearing loss, nosebleeds, rhinorrhea, sinus pressure and sore throat. Eyes: Negative for visual disturbance. Negative for photophobia, pain, discharge, redness and itching. Respiratory: Negative for cough, chest tightness, shortness of breath and wheezing. Cardiovascular: Negative for chest pain, palpitations and leg swelling. Gastrointestinal: Negative for abdominal distention, abdominal pain, blood in stool, constipation, diarrhea, nausea and vomiting. Endocrine: Negative. Genitourinary: Negative for difficulty urinating, dysuria, hematuria, vaginal bleeding and vaginal pain. Allergic/Immunologic: Negative. Neurological: Negative for dizziness, syncope, weakness, light-headedness, numbness and headaches. Hematological: Negative for adenopathy. Psychiatric/Behavioral: Negative for behavioral problems, confusion, hallucinations, self-injury andsuicidal ideas. Objective: Physical Exam Constitutional: She is oriented to person, place, and time. She appears well- developed and well-nourished. HENT: Head: Normocephalic and atraumatic. Right Ear: Hearing, tympanic membrane, external ear and ear canal normal. Left Ear: Hearing, tympanic membrane, external ear and ear canal normal. Nose: Nose normal. Mouth/Throat: Uvula is midline, oropharynx is clear and moist and mucous membranes are normal. No oropharyngeal exudate. Eyes: Conjunctivae and EOM are normal. Pupils are equal, round, and reactive to light. Right eye exhibits no discharge. Left eye exhibits no discharge. Neck: Trachea normal. Neck supple. No thyromegaly present. Cardiovascular: Normal rate, regular rhythm, normal heart sounds and intact distal pulses. Pulmonary/Chest: Effort normal and breath sounds normal. Right breast exhibits no inverted nipple, no mass, no nipple discharge, no skin change and no tenderness. Left breast exhibits no inverted nipple, no mass, no nipple discharge, no skin change and no tenderness. Abdominal: Soft. Bowel sounds are normal. There is no tenderness. Genitourinary: Vagina normal and uterus normal. Pelvic exam was performed with patient supine. Thereis no rash, tenderness or lesion on the right labia. There is no rash, tenderness or lesion on the left labia. Cervix exhibits no motion tenderness. Right adnexum displays no tenderness and no fullness. Left adnexum displays no tenderness and no fullness. Lymphadenopathy: She has no cervical adenopathy. Neurological: She is alert and oriented to person, place, and time. Skin: Skin is warm and dry. Psychiatric: She has a normal mood and affect. Her speech is normal and behavior is normal. Judgmentand thought content normal. Cognition and memory are normal. Assessment and Plan: Annual physical exam Normal exam. reviewed and updated. Labs drawn today. Pap collected. Encouraged healthy lifestyle, exercise and balanced diet. Discussed self breast exam, safety, stress management. Patient to follow up in 1 year for next SPE, sooner if needed. documented in this encounter Miscellaneous Notes Assessment & Plan Note - Mercedes Schultz APRN - 07/05/2019 9:25 AM EST Associated Problem(s): Annual physical exam Normal exam. reviewed and updated. Labs drawn today. Pap collected. Encouraged healthy lifestyle, exercise and balanced diet. Discussed self breast exam, safety, stress management. Patient to follow up in 1 year for next SPE, sooner if needed. documented in this encounter Plan of Treatment Upcoming Encounters Date Type Specialty Care Team Description 12/11/2021 Office Visit Primary Care Harsh Holley APRN [address] [place], [place] [address] (Wo rk) 12/16/2021 Appointment Radiology Bib Leonardo MD [address] [place], [place] [address] (Wo rk) documented as of this encounter Procedures Procedure Name Priority Date/Time Associated Comments Diagnosis HPV Routine 07/05/2019 9:25 AM Results f or this EST procedure are i n the results section. MAGAZINE WRITER CYTOLOGY Routine 07/05/2019 9:25 AM Results f or this INTERPRETATION EST procedure are in the results section. MAGAZINE WRITER CYTOLOGY FINAL Routine 07/05/2019 9:25 AM Res ults for this REPORT EST procedure are i n the results section. CYTOPATHOLOGY Routine 07/05/2019 9:25 AM Screening for Results for this GYNECOLOGICAL EST malignant neoplasm procedur e are in of cervix the results section. documented in this encounter Results Clinical Transplant Coordinator Cytology Final Report (07/05/2019 9:25 AM EST) Component Value Ref Test Analysis Performed At [facility] gist Range Method Time Signature Clinical Transplant Coordinator Cytology [id number] ? Location: [facility] Final Report [place] The signing pathologist has (i) examined the relevant preparation(s) for the [facility] specimen(s) and (ii) rendered or confirmed the diagnosis(es) . HOSPITAL LABORATORY . ? Clinical Transplant Coordinator Final DIAGNOSIS Normal Negative for intraepithelial lesion or malignancy (NILM). For consensus guidelines for the management of c ervical cancer screening test results, please see: ?? http://www.asccp.org . Electronically signed by: ??Joshua ISRAEL(ASCP)Shannan Verified: ??07/14/2019 ?Digital Forensic Analyst Performed at: ??-[facility] Dept. of Pathology, [place], [place] HPV RESULTS HPV16 (Result) ?Negative HPV18 (Result) ?Negative HPVOHR (Result) ? Negative HPV (Interpretation) ?See Below HPV (Interpretation) Text: NEGATIVE for high-risk HPV *. *Testing negative for high risk HPV means that the specimen is negative for the following 14 types tested: types 16, 18, 31, 33, 35 , 39, 45, 51, 52, 56, 58, 59, 66, and 68. The test is not intended to detect low risk HPV types. Kael peyton HPV test Specimen: HPV Testing - Cytology Liquid Based Prep The Kael peyton ? HPV guy t was validated, performed and results reported through the Laboratory for Clinical Gen omics and Advanced Technology (CGAT) at [facility]. ? - Tommy Gomes, PhD, [facility], Director-[facility] STATEMENT OF ADEQUACY Specimen submitted is satisf actory for evaluation. No endocervical component present. Note: ??Initial cross-sectional studies suggested th at MAYRA cells were more commonly identified when an endocervical component was present, however subsequent longitudinal studies fail t o show that women lacking an endocervical component in a Pap smear are at increased risk for MAYRA. CLINICAL INFORMATION HPV Option: ?Concurrent HPV and Pap CT/NG Option: ?No Preparation: ? Liquid based Pap Specimen Source: ? Cervical/Endocervical LMP: ? 06/18/2019 Hysterectomy: ?No : ?No : ?No I.U.D.: ?No Pelvic Radiation: ?No Hist Abnl Pap/Biopsy: ?No Prior MAGAZINE WRITER Therapy: ? No Hist of HPV Vaccine: ? No ICD Diagnosis: ? Z12.4 Encounter for screening for malignant neoplasm of cervix . CLINICAL INFORMATION Clinical Data, Significant Therapy and Clinical Impression ? ? : ?_ This Pap Test has been evalu ated with the assistance of the [employer]p Pap Test Imaging System. Note: The Pap test is a screening test for cervical cancer with an inherent false-negative rate dependent upon several variables. For further information please contact the [facility] Laboratory. Reference: Davida KULKARNI. [place] Program Coordinator of Pap Smear Results. In: Ivy BS, Devin LANDA, lisa greenberg. The Pap Smear. [place]: Stewart, 2002: 71-77. Specimen (Source) Anatomical Collection Method Collection Time Re ceived Time Location / / Volume Laterality 07/05/2019 9:25 AM EST Mercedes Meade APRN PATHOLOGY/CYTOLOGY ORDERABLE S Performing Organization Address City/State/[place] [address] MAGAZINE WRITER Cytology Interpretation (07/05/2019 9:25 AM EST) [facility] Method Time Signature Clinical Transplant Coordinator Cytology [facility] Interpretation [facility] Comment: Clinical Transplant Coordinator Cytology Final Report Acces sommer: [id number] Endocervical Component Not Present [facility] LABORATORY Specimen Anatomical Collection Method Collection Time Receive d Time (Source) Location / / Volume Laterality AP Specimen 07/05/2019 9:25 AM 0 2:40 EST PM EST Mercedes Meade APRN PATHOLOGY/CYTOLOGY ORDERABLE S Performing Organization Address City/[facility]/[place] [address] HPV (07/05/2019 9:25 AM EST) [facility] Method Time Signature HPV 16 NEGATIVE NEGATIVE [facility] LAB[facility]ORY HPV 18 NEGATIVE NEGATIVE [facility] LAB[facility]ORY HPV Other HR NEGATIVE NEGATIVE [facility] LABORATORY HPV See Comment [facility] LABORATORY Comment: NEGATIVE for high-risk HPV *. * Testing negative for high risk HPV nevin ns that the specimen is negative for the following 14 types tested: ??types 1 6, 18, 31, 33, 35, 39, 45, 51, 52, 56, 58, 59, 66, and 68. ??The test is not in tended to detect low risk HPV types. Kael Peyton HPV test Specimen: HPV Testing - Cytology Liquid Based Prep Specimen Anatomical Collection Method Collection Time Receive d Time (Source) Location / / Volume Laterality Cervical swab 07/05/2019 9:25 AM 07/05/19 20 5:37 (specimen) EST PM EST Resulting Agency Comment Spec In Lab Mercedes Meade APRN PATHOLOGY/CYTOLOGY ORDERABLE S Performing Organization Address City/[facility] [place] [address] Cytopathology Gynecological (07/05/2019 9:25 AM EST) Specimen Anatomical Collection Method Collection Time Receive d Time (Source) Location / / Volume Laterality AP Specimen 07/05/2019 9:25 AM 0 3:05 EST PM EST Narrative [facility] LABORAT ORY - 07/05/2019 3:05 PM EST Specimen requisition ordered. ??Separate Pathology report to follow Resulting Agency Comment Spec In Lab Mercedes Meade APRN PATHOLOGY/CYTOLOGY ORDERABLE S Performing Organization Address City/State/[place] [address] documented in this encounter Visit Diagnoses Diagnosis Screening for malignant neoplasm of cerv ix Screening for malignant neoplasm of the cervix Annual physical exam Routine general medical examination at a health care facility Visit for screening mammogram Other screening mammogram documented in this encounter Care Teams Fryline Attendant Relationship Specialty Start Date End Date Bib Leonardo MD PCP - General Family Medicine 06/01/[address] [place] [address] [place] [address] documented as of this encounter
--- OUTSIDE RECORDS SUMMARY | 2021-12-09 07:22 | XMS_ITS | Encounter Summary ---
:1980 Author Organization [facility] [place] [address] Care Team Providers Name Role Phone Apple Leonardo MD Primary Care Provider Reason for Referral Consultation (Routine) - Closed Specialty Diagnoses / Procedures Referred By Contact Refer red To Contact Dermatology Diagnoses Skin cancer screening Apple Leonardo MD Con Dermatology [address] [place] [address] [place] [address] Referral ID Status Reason Start Date Expiration Date Visits V isits Requested Authorized [id number] Closed Consult, 04/26/2019 04/25/2020 1 1 Test & Treat Reason for Visit Reason Onset Date Comments Referral 04/25/2019 Encounter Details Date Type Department Care Team Description 04/25/2019 Telephone Primary Care at [facility] Agnes Doyel RN Referral [address] [place] [address] Social History Tobacco Use Types Packs/Day Years Used Date Never Smoker Smokeless Tobacco: Never Used Sex Assigned at Date Recorded Female 12/22/2020 8:06 AM EDT documented as of this encounter Miscellaneous Notes Telephone Encounter - Agnes Doyle RN - 04/26/2019 7:34 AM EST Referral done Telephone Encounter - Apple Leonardo MD - 04/25/2019 5:54 PM EST Ok for referral- pcr Telephone Encounter - Agnes Doyle RN - 04/25/2019 2:17 PM EST Ok for referral? Telephone Encounter - Agnes Doyle RN - 04/25/2019 2:16 PM EST Copied from [facility] #[id number]. Topic: Patient Request - Referral Request >> Apr 25, 2019 2:05 PM Celina Banegas wrote: Referral Request. PCP: APPLE LEONARDO Reason for Referral: skin check Name of Office/Department: [place] - Dermatology City/Town & State of Office: [place], [place] Office Phone #: Office Fax #: Provider's Name: Amanuel Stokes MD Do You Already Have an Appointment: Yes, date of appt: 07/03/19 documented in this encounter Plan of Treatment Upcoming Encounters Date Type Specialty Care Team Description 12/11/2021 Office Visit Primary Care Harsh Holley APRN [address] [place], [place] [address] (Wo rk) 12/16/2021 Appointment Radiology Apple Leonardo MD [address] [place], [place] [address] (Wo joselyn) Scheduled Referrals Name Type Priority Associated Order Schedule Diagnoses Referral to Outpatient Referral Routine Skin cancer Ordered: Dermatology screening 04/26/2019 documented as of this encounter Visit Diagnoses Diagnosis Skin cancer screening Screening for malignant neoplasm of the skin Visit for screening mammogram Other screening mammogram documented in this encounter Care Teams Client Liaison Relationship Specialty Start Date End Date Apple eLonardo MD PCP - General Family Medicine 06/01/[address] [place] [id number] documented as of this encounter
--- OUTSIDE RECORDS SUMMARY | 2021-12-09 07:22 | XMS_ITS | Encounter Summary ---
:1980 Author Organization [facility] [place] [address] Care Team Providers Name Role Phone Bib Leonardo MD Primary Care Provider Encounter Details Date Type Department Care Team Description 12/03/2020 Hospital Encounter [place] [facility] [place]inda Abnormal finding on [facility] , MD Eli breast imaging [facility] [address] DIAGNOSTIC [phone] [place] [address] Social History Tobacco Use Types Packs/Day Years Used Date Never Smoker Smokeless Tobacco: Never Used Sex Assigned at Date Recorded Female 12/22/2020 8:06 AM EDT documented as of this encounter Medications at Time of Discharge Medication Sig Dispensed Refills Start Date End Date albuterol 90 Inhale 2 puffs into 2 Inhaler 1 03/29/201901/2021 mcg/actuation HFA Aerosol the lungs every 4 Inhaler hours as needed for Wheezing. documented as of this encounter Plan of Treatment Upcoming Encounters Date Type Specialty Care Team Description 12/11/2021 Office Visit Primary Care Harsh Holley APRN [address] [place], [place] [address] (Wo rk) 12/16/2021 Appointment Radiology Bib Leonardo MD [address] [place], [place] [address] (Wo rk) documented as of this encounter Procedures Procedure Name Priority Date/Time Associated Comments Diagnosis MAMMO CALL BACK Routine 12/03/2020 9:02 AM Abnormal finding on Results for this DIAGNOSTIC BO EDT breast imaging procedure are in WITHOUT CAD RIGHT the result s section. documented in this encounter Results Mammo Call Back Diagnostic Bo Without Cad Right (12/03/2020 9:02 AM EDT) Anatomical Region Laterality Modality Breast Right Mammography Specimen (Source) Anatomical Location Collection Method / Collectio n Time Received Time / Laterality Volume Impressions 12/03/2020 9:05 AM EDT No mammographic evidence of malignancy. Recommendation: Routine annual screening BI-RADS Category 1: Negative * ??Regular screening mammograms startin g between age 40 and 50 reduces the risk of from breast cancer. * ??All screening tests have both risks and benefits. These risks and benefits should be assessed for each individual p atient through discussion with their provider to determine their preferred br east cancer screening schedule. * ??Women should report any breast stewart es to a health care provider right away. * ??Some women, because of their family history, a genetic tendency, or other factors, should be screened with annual breast MRI as well as with mammograms. (The number of women who fall into this category is very small). Patients and health care providers should discuss eac h patients history to decide if earlier screening and/or breast MRI are appropri ate. * ??Screening should continue as long as a woman is in good health and is expected to live 10 years or longer. * ??Screening mammography may not detect 10-15% of breast cancers. Thank you for letting us participate in the care of this patient. ??If you are a health care provider and have any questi ons regarding this report, please contact the number below. ??For patients who have questions please contact the health childcare provider that requested your imaging first. ? Narrative 12/03/2020 9:05 AM EDT EXAMINATION: MAMMO CALL BACK DIAGNOSTIC BO WITHOUT CAD RIGHT CLINICAL HISTORY: abnormal finding on br east imaging TECHNIQUE: True lateral, spot compression CC and sp ot compression MLO views were obtained of the right breast. 2-D direct digital capture, 3-D tomosynthesis and computer aided detection (CAD) were used.. COMPARISON: This study was compared with prior image s. FINDINGS: The breasts are heterogeneously dense, w hich may obscure small masses. There are no suspicious masses, suspicious microca lcifications, or areas of architectural distortion. Specifically the questioned asymmetry effaces consistent with normal obliquity and compression differences. Eli Ibrahim MD IMG MAMMO ORDERABLES documented in this encounter Visit Diagnoses Diagnosis Abnormal finding on breast imaging Other (abnormal) findings on radiologica l examination of breast Visit for screening mammogram Other screening mammogram documented in this encounter Care Teams Health And Safety Inspector Relationship Specialty Start Date End Date Bib Leonardo MD PCP - General Family Medicine 06/01/[address] [place] [id number] documented as of this encounter
--- OUTSIDE RECORDS SUMMARY | 2021-12-09 07:22 | XMS_ITS | Encounter Summary ---
:1980 Author Organization [facility] [place] [address] Care Team Providers Name Role Phone Bib Leonardo MD Primary Care Provider Reason for Visit Reason Comments Follow-up Poison Valencia x 10 days on arms and legs Encounter Details Date Type Department Care Team Description 12/26/2017 Office Visit Primary Care at [facility] Kim Ann APRN Poison valencia [address] [place] [address] FAMILY MEDICINE [phone] [place], [place] [address] (Wo rk) Social History Tobacco Use Types Packs/Day Years Used Date Never Smoker Smokeless Tobacco: Never Used Sex Assigned at Date Recorded Female 12/22/2020 8:06 AM EDT documented as of this encounter Last Filed Vital Signs Vital Sign Reading Time Taken Comments Blood Pressure 108/56 12/26/2017 10:26 AM EDT Pulse 50 12/26/2017 10:26 AM EDT Temperature 36.6 ??C (97.8 ??F) 12/26/2017 10:26 AM EDT Respiratory Rate - - Oxygen Saturation 100% 12/26/2017 10:26 AM EDT Inhaled Oxygen Concentration - - Weight 58.5 kg (129 lb) 12/26/2017 10:26 AM EDT Height 162.6 cm (5' 4.02) 12/26/2017 10:26 AM EDT Body Mass Index 22.13 12/26/2017 10:26 AM EDT documented in this encounter Patient Instructions Patient InstructionsKim Ann APRN - 12/26/2017 10:30 AM EDT For your poison valencia, please use topical steroid as prescribed to help with the itch You can use benadryl at bedtime to help you sleep [place], jose solution Call or return to clinic if these symptoms worsen or fail to improve as anticipated. documented in this encounter Progress Notes Kim Ann APRN - 12/26/2017 10:30 AM EDT Subjective: Patient ID: Gretel Mendoza is a 37 y.o. female. Chief Complaint Patient presents with ??? Follow-up Poison Valencia x 10 days on arms and legs HPI Patient is here for SDA for concern of poison valencia exposure Noted about 10 days ago. Doesn't recall specifically encounter, but is outside a lot Itchy at times. Has had a couple new spots emerge in last 24 hours Mostly arms and legs Using topical benadryl Review of Systems Objective: BP 108/56 (BP Location (NBP): Left arm, Patient Position: Sitting, BP Cuff Sizes: Adult (25-34 cm)) Pulse 50 Temp 36.6 ??C (97.8 ??F) (Temporal) Ht 162.6 cm (5' 4.02) Wt 58.5 kg (129 lb) SpO2 100% BMI 22.13 kg/m2 Physical Exam Constitutional: She appears well-developed and well-nourished. Skin: Spots on arm and legs, various, discrete. Ones on right arm are blistered, bullous. Small, none greater in size than dime sized There are about 4 or so on each arm and 3-4 on each leg Psychiatric: She has a normal mood and affect. Her behavior is normal. Judgment and thought content normal. Assessment and Plan: 1. Poison valencia Reviewed rash is rather small and that prednisone would be excessive, which she agrees with May use topical rx strength steroid Consider predinsone if worsening or appears on face, genitals OTCs as advised Prn fu documented in this encounter Plan of Treatment Upcoming Encounters Date Type Specialty Care Team Description 12/11/2021 Office Visit Primary Care Harsh Holley APRN [address] [place], [place] [address] (Wo rk) 12/16/2021 Appointment Radiology Bib Leonardo MD [address] [place], [place] [address] (Wo rk) documented as of this encounter Visit Diagnoses Diagnosis Poison valencia Contact dermatitis and other eczema due to plants (except food) Visit for screening mammogram Other screening mammogram documented in this encounter Care Teams Budget And Policy Analyst Relationship Specialty Start Date End Date Bib Leonardo MD PCP - General Family Medicine 06/01/16 [address] [place] [address] documented as of this encounter
--- OUTSIDE RECORDS SUMMARY | 2021-12-09 07:22 | XMS_ITS | Encounter Summary ---
:1980 Author Organization [facility] [place] [address] Care Team Providers Name Role Phone Bib Leonardo MD Primary Care Provider Reason for Referral Consultation (Routine) - Closed Specialty Diagnoses / Procedures Referred By Contact Refer red To Contact Dermatology Diagnoses Milia of eyelid of left eye [facility] PA [place], Nava C, MD [address] [place] [address] [place] [address] Fax: Referral ID Status Reason Start Date Expiration Date Visits V isits Requested Authorized [id number] Closed Consult, 12/22/2020 12/22/2021 1 1 Test & Treat Reason for Visit Reason Comments Annual Exam Encounter Details Date Type Department Care Team Description 12/22/2020 Office Visit Primary Care at Abril Bills H/O cold sores; ROSA Vicente Milia of eyelid of left eye; [address] Encounter for general adult medical exam ination without abnormal findings; [place], [place] FAMILY MEDICINE Mild intermittent asthma with acute exac erbation [address] [place] [address] [phone] Social History Tobacco Use Types Packs/Day Years [...] Mass Index 22.38 12/22/2020 1:27 PM EDT documented in this encounter Patient Instructions Patient InstructionsAbril Bills PA - 12/22/2020 1:30 PM EDT It was nice to meet you. You received pneumovax today. I would strongly encourage you to receive flu shot when available. I have placed a referral for dermatology. Otherwise, your next physical is due in 1 year. Please call with any questions or concerns. documented in this encounter Progress Notes Abril Bills PA - 12/22/2020 1:30 PM EDT Subjective: Patient is here today for her annual physical. She has a history of cold sores and is requesting a refill of Valtrex. She also has a history of asthma. She uses her rescue inhaler a few times per year.Moved to the [facility] with her family about a year ago and asthma is much better down there. Otherwise, doing well. No past medical history on file. Social History Social History Narrative Living in [facility]. 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 2 kids. Family History Problem Relation Age of Onset ??? No Known Problems Sister ??? No Known Problems Mother ??? No Known Problems Father ??? No Known Problems Daughter ??? No Known Problems Maternal Aunt ??? No Known Problems Maternal Uncle ??? No Known Problems Paternal Aunt ??? No Known Problems Paternal Uncle ??? No Known Problems Maternal Grandmother ??? No Known Problems Maternal Grandfather ??? Dementia Paternal Grandmother ??? No Known Problems Paternal Grandfather ??? No Known Problems Other ??? Bipolar Disorder Paternal Aunt ??? Depression Paternal Aunt No past surgical history on file. Medications 12/22/20 1330 Medication Sig Taking? albuteroL 90 mcg/actuation HFA Aerosol Inhaler Inhale 2 puffs into the lungs every 4 hours as neededfor Wheezing. Yes valACYclovir (VALTREX) 1 gram Tablet Take 1 tablet by mouth daily. Allergies Allergen Reactions ??? Cat Dander Shortness Of Breath watery eyes ??? Dog Dander Shortness Of Breath Watery eys Review of Systems Constitutional: Negative for chills, diaphoresis and fever. HENT: Negative for congestion, ear pain, sinus pain and sore throat. Eyes: Negative for blurred vision and double vision. Respiratory: Negative for cough, shortness of breath and wheezing. Cardiovascular: Negative for chest pain and palpitations. Gastrointestinal: Negative for abdominal pain, constipation, diarrhea, heartburn, nausea and vomiting. Genitourinary: Negative for frequency and urgency. Musculoskeletal: Negative for back pain. Skin: Negative for rash. Neurological: Negative for dizziness, tingling, sensory change, weakness and headaches. Psychiatric/Behavioral: Negative for depression. The patient is not nervous/anxious and does not have insomnia. Objective: Visit Vitals BP 114/72 (BP Location (NBP): Left arm, Patient Position: Sitting, BP Cuff Sizes: Adult (25-34 cm)) Pulse 54 Temp 36.8 ??C (98.2 ??F) (Temporal) Resp 16 Ht 161.7 cm (5' 3.66) Comment: measured Wt 58.5 kg (129 lb) LMP 12/15/2020 (Approximate) SpO2 99% BMI 22.38 kg/m?? 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 Constitutional: General: She is not in acute distress. Appearance: Normal appearance. She is normal weight. HENT: Head: Normocephalic and atraumatic. Right Ear: Tympanic membrane, ear canal and external ear normal. Left Ear: Tympanic membrane, ear canal and external ear normal. Nose: Nose normal. No congestion. Mouth/Throat: Mouth: Mucous membranes are moist. Pharynx: Oropharynx is clear. Eyes: Extraocular Movements: Extraocular movements intact. Conjunctiva/sclera: Conjunctivae normal. Pupils: Pupils are equal, round, and reactive to light. Cardiovascular: Rate and Rhythm: Normal rate and regular rhythm. Pulses: Normal pulses. Heart sounds: Normal heart sounds. No murmur heard. Pulmonary: Effort: Pulmonary effort is normal. No respiratory distress. Breath sounds: Normal breath sounds. No wheezing, rhonchi or rales. Chest: Breasts: Right: No mass, nipple discharge or tenderness. Left: No mass, nipple discharge or tenderness. Abdominal: General: Abdomen is flat. Bowel sounds are normal. There is no distension. Palpations: Abdomen is soft. Tenderness: There is no abdominal tenderness. Musculoskeletal: General: Normal range of motion. Cervical back: Neck supple. Lymphadenopathy: Cervical: No cervical adenopathy. Skin: General: Skin is warm. Comments: Multiple small pinpoint milia under eyes bilaterally. Larger milia in medial canthus on left eye. Neurological: General: No focal deficit present. Mental Status: She is alert. Psychiatric: Mood and Affect: Mood normal. Behavior: Behavior normal. Encounter for general adult medical examination without abnormal findings Doing well. All histories reviewed and updated. Mammogram up to date. Preventive labs from last year reviewed. She has received COVID vaccine. Pneumovax given today. Encouraged diet and exercise. Next physical due in 1 year. All questions and concerns were addressed. Asthma Rare MDI use. Medication refilled. H/O cold sores Rx sent for Valtrex to use PRN. Milia of eyelid of left eye Reassurance provided. Patient would like referral to dermatology for larger milia in medial canthus.Referral placed. Current view: Showing all answers Show Only Relevant Answers Legend: Triggered a BPA Scoring question Q - Phq2->9 90d Screen Question 12/22/2020 8:08 AM EDT - Filed by Patient The next several questions relate to your overall emotional well-being. You will be asked about your current mental health. For example, this includes feelings of anger, depression, or anxiety. Over the LAST 2 WEEKS, how often have you been bothered by little interest or pleasure in doing things? Not at all Over the LAST 2 WEEKS, how often have you been bothered by feeling down, depressed, or hopeless? Not at all PHQ-2 Score (range: 0 - 6) 0 (Brief screen negative) Thank you for taking the time to respond to these questions. Your health team looks forward to reviewing your answers. Q - Audit/Crystal Screener Question 12/22/2020 8:09 AM EDT - Filed by Patient In the past year have you had 4 or more drinks in a day containing alcohol? No In the past year have you used marijuana, an illegal drug or a prescription medication for non medical reasons? No Q - Gad2->7 90d Screen Question 12/22/2020 8:09 AM EDT - Filed by Patient Over the LAST 2 WEEKS, how often have you been bothered by feeling nervous, anxious or on edge? Notat all Over the LAST 2 WEEKS, how often have you been bothered by not being able to stop or control worrying? Not at all GAD2 Subscore (range: 0 - 6) 0 (Brief screen negative) documented in this encounter Miscellaneous Notes Assessment & Plan Note - Abril Bills PA - 12/22/2020 2:02 PM EDT Associated Problem(s): Milia of eyelid of left eye Reassurance provided. Patient would like referral to dermatology for larger milia in medial canthus.Referral placed. Assessment & Plan Note - Abril Bills PA - 12/22/2020 2:01 PM EDT Associated Problem(s): H/O cold sores Rx sent for Valtrex to use PRN. Assessment & Plan Note - Abril Bills PA - 12/22/2020 2:01 PM EDT Associated Problem(s): Asthma Rare MDI use. Medication refilled. Assessment & Plan Note - Abril Bills PA - 12/22/2020 2:00 PM EDT Associated Problem(s): Encounter for general adult medical examination without abnormal findings Doing well. All histories reviewed and updated. Mammogram up to date. Preventive labs from last year reviewed. She has received COVID vaccine. Pneumovax given today. Encouraged diet and exercise. Next physical due in 1 year. All questions and concerns were addressed. Addendum Note - Camelia Beltran CMA - 12/22/2020 1:30 PM EDT Addended by: CAMELIA BELTRAN on: 12/22/2020 02:17 PM Modules accepted: Orders, SmartSet documented in this encounter Plan of Treatment Upcoming Encounters Date Type Specialty Care Team Description 12/11/2021 Office Visit Primary Care Harsh Holley APRN [address] [place], [place] [address] (Wo rk) 12/16/2021 Appointment Radiology Bib Leonardo MD [address] [place], [place] [address] (Wo rk) Scheduled Referrals Name Type Priority Associated Order Schedule Diagnoses Referral to Outpatient Referral Routine Milia of eyelid of Or dered: Dermatology left eye 12/22/2020 documented as of this encounter Visit Diagnoses Diagnosis H/O cold sores Personal history of other infectious and parasitic disease Milia of eyelid of left eye Encounter for general adult medical exam ination without abnormal findings Unspecified general medical examination Mild intermittent asthma with acute exac erbation Unspecified asthma, with exacerbation Visit for screening mammogram Other screening mammogram documented in this encounter Care Teams Paid Search Marketing Analyst Relationship Specialty Start Date End Date Bib Leonardo MD PCP - General Family Medicine 06/01/[address] [place] [id number] documented as of this encounter
--- OUTSIDE RECORDS SUMMARY | 2021-12-09 07:22 | XMS_ITS | Encounter Summary ---
:1980 [place] [address] Care Team Providers Name Role Phone Bib Leonardo MD Primary Care Provider Reason for Visit Reason Comments Breast Problem Left breast tenderness Encounter Details Date Type Department Care Team Description 07/19/2019 Office Visit Primary Care at Merced Banda MD Breast lump in female [place] [address] [place] [address] [place], [place] [phone] (Wo rk) [id number] [phone] Social History Tobacco Use Types Packs/Day Years Used Date Never Smoker Smokeless Tobacco: Never Used Sex Assigned at Date Recorded Female 12/22/2020 8:06 AM EDT documented as of this encounter Last Filed Vital Signs Vital Sign Reading Time Taken Comments Blood Pressure 102/72 07/19/2019 7:51 AM EST Pulse 58 07/19/2019 7:51 AM EST Temperature 36.6 ??C (97.8 ??F) 07/19/2019 7:51 AM EST Respiratory Rate - - Oxygen Saturation 100% 07/19/2019 7:51 AM EST Inhaled Oxygen Concentration - - Weight 60.9 kg (134 lb 3.2 oz) 07/19/2019 7:51 AM EST Height 162.6 cm (5' 4.02) 07/19/2019 7:51 AM EST Body Mass Index 23.02 07/19/2019 7:51 AM EST documented in this encounter Patient Instructions Patient InstructionsMerced Banda MD - 07/19/2019 7:45 AM EST Images from the original note were not included. Patient Education Fibrocystic Breast Changes: Care Instructions Your Care Instructions Fibrocystic breast changes cause many small lumps to form in your breast. Some areas of your breast may feel thicker or denser than other areas. Your breasts also may feel sore or tender. You may notice lumps in both breasts around the nipple and in the upper, outer part of the breasts, especially before your menstrual period. The lumps may come and go and change size in just a few days. Fibrocystic breast changes are normal and are not cancer. Treatment is not usually needed. If you have a hard, grainy lump, unusual pain, or nipple discharge, your doctor may order tests to look for a more serious problem. Talk to your doctor about the need for regular mammograms. Follow-up care is a lutz part of your treatment and safety. Be sure to make and go to all appointments, and call your doctor if you are having problems. It's also a good idea to know your test results and keep a list of the medicines you take. How can you care for yourself at home? ?? Take an cucg-joe-qqxgkkr pain medicine, such as acetaminophen (Tylenol), ibuprofen (Advil, Motrin), or naproxen (Aleve). Read and follow all instructions on the label. ?? Do not take two or more pain medicines at the same time unless the doctor told you to. Many pain medicines have acetaminophen, which is Tylenol. Too much acetaminophen (Tylenol) can be harmful. ?? Wear a supportive bra, such as a sports bra or jog bra. ?? You may want to limit caffeine. Some women say that cutting back on caffeine reduces breast tenderness. ?? A diet very low in fat (about 15% of daily diet) may reduce breast tenderness. Talk to your doctor about whether you should try a very low-fat diet. When should you call for help? Watch closely for changes in your health, and be sure to contact your doctor if: ? You do not get better as expected. ? Your breast has changed. ? You have pain in your breast. ? You have a discharge from your nipple. ? A breast lump changes or does not go away. Where can you learn more? Visit our health information library at [email or web address] You can also view health information on [employer], your personal patient account. Log in or sign up today. Enter J802 in the search box to learn more about Fibrocystic Breast Changes: Care Instructions. Current as of: July 04, 2018 Content Version: 12.3 ?? 1004-1045 [employer]. Care instructions adapted under license by [facility]. If you have questions about a medical condition or this instruction, always ask your healthcare professional. [employer] disclaims any warranty or liability for your use of this information. documented in this encounter Progress Notes Merced Banda MD - 07/19/2019 7:45 AM EST Subjective: Patient ID: Gretel Mendoza is a 39 y.o. female. HPI Cc- left breast tenderness She has left breast tenderness specially before her periods x 1 month No injury No nipple discharge lmp 10 days back Review of Systems Constitutional: Negative for fever, chills, diaphoresis, activity change, appetite change and fatigue. Respiratory: Negative for cough, chest tightness, shortness of breath and wheezing. Cardiovascular: Negative for chest pain, palpitations and leg swelling. Gastrointestinal: Negative for nausea, vomiting, abdominal pain, diarrhea, constipation, blood in stool and abdominal distention. Neurological: Negative for dizziness, seizures, weakness, light-headedness and headaches. Breast- see hpi Objective: Physical Exam Constitutional: appears well-developed and well-nourished. Breasts- left mid outer quadrant is cystic, nontender No discrete lump Rt breast is normal No lymphadenopathy Assessment and Plan: Breast lump in female Fibrocystic breasts Will get an ultrasound and mammogram Gave her info on fibrocystic breasts Advised to avoid coffee, wear support bras Medications 07/19/19 0751 Medication Sig Taking? albuterol 90 mcg/actuation HFA Aerosol Inhaler Inhale 2 puffs into the lungs every 4 hours as neededfor Wheezing. Yes documented in this encounter Miscellaneous Notes Assessment & Plan Note - Merced Banda MD - 07/19/2019 8:16 AM ESTAssociated Problem(s): Breast lump in female Fibrocystic breasts Will get an ultrasound and mammogram Gave her info on fibrocystic breasts Advised to avoid coffee, wear support bras documented in this encounter Plan of Treatment Upcoming Encounters Date Type Specialty Care Team Description 12/11/2021 Office Visit Primary Care Harsh Holley, [place] [address] [place], [place] [address] (Wo rk) 12/16/2021 Appointment Radiology Bib Leonardo MD [address] [place], [place] [address] (Wo rk) documented as of this encounter Results US Breast Limited Left (07/19/2019 11:45 AM EST) Anatomical Region Laterality Modality Breast Left Ultrasound Specimen (Source) Anatomical Location Collection Method / Collectio n Time Received Time / Laterality Volume Impressions 07/19/2019 1:07 PM EST Benign findings ACR BIRADS 2: Benign Finding. I had the opportunity to discuss these f indings and recommendations with the patient at the conclusion of the appoint ment. A summary of these findings will be conv eyed to the patient by mail. Thank you for letting us participate in the care of this patient. For questions regarding this report, please contact e number below. ? Narrative 07/19/2019 1:07 PM EST EXAMINATION: MAMMO DIAGNOSTIC CAD AND BO BILATERAL, US ??BREAST LIMITED LEFT CLINICAL HISTORY: breast tenderness COMPARISON: Baseline VIEWS: Bilateral cc and MLO's, spot comp ression left CC. ??CAD and tomosynthesis was utilized. BREAST COMPOSITION: ??The breasts are ex tremely dense, which lowers the sensitivity of mammography. FINDINGS: No dominant masses or suspicio us microcalcifications are seen on mammography. Sonographic evaluation of the region of palpable abnormality left breast 7:00 position 6 cm the nipple demonstrates 2 simple cysts. They measure 3.5 x 2.5 x 4.3 mm and 5.3 x 2.8 x 5.4 mm. Merced Banda MD IMG MAMMO ORDERABLES Mammo Diagnostic CAD and Bo Bilateral (07/19/2019 11:24 AM EST) Anatomical Region Laterality Modality Breast Bilateral Mammography Specimen (Source) Anatomical Location Collection Method / Collectio n Time Received Time / Laterality Volume Impressions 07/19/2019 1:07 PM EST Benign findings ACR BIRADS 2: Benign Finding. I had the opportunity to discuss these f indings and recommendations with the patient at the conclusion of the appoint ment. A summary of these findings will be conv eyed to the patient by mail. Thank you for letting us participate in the care of this patient. For questions regarding this report, please contact e number below. ? Narrative 07/19/2019 1:07 PM EST EXAMINATION: MAMMO DIAGNOSTIC CAD AND BO BILATERAL, US ??BREAST LIMITED LEFT CLINICAL HISTORY: breast tenderness COMPARISON: Baseline VIEWS: Bilateral cc and MLO's, spot comp ression left CC. ??CAD and tomosynthesis was utilized. BREAST COMPOSITION: ??The breasts are ex tremely dense, which lowers the sensitivity of mammography. FINDINGS: No dominant masses or suspicio us microcalcifications are seen on mammography. Sonographic evaluation of the region of palpable abnormality left breast 7:00 position 6 cm the nipple demonstrates 2 simple cysts. They measure 3.5 x 2.5 x 4.3 mm and 5.3 x 2.8 x 5.4 mm. Merced Banda MD IMG MAMMO ORDERABLES documented in this encounter Visit Diagnoses Diagnosis Breast lump in female Lump or mass in breast Breast lump in female Lump or mass in breast Breast lump in female Lump or mass in breast Visit for screening mammogram Other screening mammogram documented in this encounter Care Teams Line Service Technician Relationship Specialty Start Date End Date Bib Leonardo MD PCP - General Family Medicine 06/01/[address] [place] [address] [place] [address] documented as of this encounter
--- OUTSIDE RECORDS SUMMARY | 2021-12-09 07:22 | XMS_ITS | Encounter Summary ---
:1980 Author Organization [facility] [place] [address] Care Team Providers Name Role Phone Bib Leonardo MD Primary Care Provider Reason for Referral Consultation (Routine) - Specialty Diagnoses / Procedures Referred By Contact Refer red To Contact Dermatology Diagnoses Multiple benign nevi Mercedes Meade APRN Con Dermatology [address] [place] [address] [place] [address] Referral ID Status Reason Start Date Expiration Date Visits V isits Requested Authorized [id number] Consult, 08/09/2016 08/09/2017 1 1 Test & Treat Consultation (Routine) - Closed Specialty Diagnoses / Procedures Referred By Contact Refer red To Contact Podiatry Diagnoses Bilateral bunions Mercedes Meade BUSINESS OBJECTS CONSULTANT Con Podiatry [address] [place] [address] [place] [address] Referral ID Status Reason Start Date Expiration Date Visits V isits Requested Authorized [id number] Closed Consult, 08/09/2016 08/09/2017 1 1 Test & Treat Reason for Visit Reason Comments Annual Exam Encounter Details Date Type Department Care Team Description 08/09/2016 Office Visit Primary Care at Mercedes Meade, Ghislaine ral bunions; [facility] Multiple benign nevi; [address] Encounter for general adult medical exam ination without abnormal findings; [facility] Mild intermittent asthma without complic [place]ion [id number] [place] [address] [phone] Social History Tobacco Use Types Packs/Day Years Used Date Never Smoker Smokeless Tobacco: Never Used Sex Assigned at Date Recorded Female 12/22/2020 8:06 AM EDT documented as of this encounter Last Filed Vital Signs Vital Sign Reading Time Taken Comments Blood Pressure 118/76 08/09/2016 8:37 AM EDT Pulse 60 08/09/2016 8:37 AM EDT Temperature - - Respiratory Rate - - Oxygen Saturation 99% 08/09/2016 8:37 AM EDT Inhaled Oxygen Concentration - - Weight 60.8 kg (134 lb) 08/09/2016 8:37 AM EDT Height 161.9 cm (5' 3.75) 08/09/2016 8:37 AM EDT Body Mass Index 23.18 08/09/2016 8:37 AM EDT documented in this encounter Patient Instructions Patient InstructionsMercedes Schultz APRN - 08/09/2016 8:30 AM EDT It was nice to meet you today. Your exam was normal and you appear to be in good health. We will check blood work next year and update your pap at that time as well. I have entered a referrals for you to see podiatry and dermatology, they will call you to schedule appointments (dermatology books out quite a bit). Try Claritin daily to see if this helps with asthma triggers. Other options to consider are pulmonary function testing or seeing an distribution specialist. We can also try a daily maintenance medication called Singulair. documented in this encounter Progress Notes Mercedes Schultz APRN - 08/09/2016 8:30 AM EDT Subjective: Patient ID: Gretel Mendoza is a 36 y.o. female. HPI Patient presents for an annual exam. Doing well overall. Has the following concerns: Foot problem, bunions on bilateral feet, more painful in the winter when wearing regular shoes - does fine in the summer with flip flops. Ongoing issue for the past 5 years or so, this year has been the worst, considering surgical options if appropriate. Will refer to podiatry. Asthma having seasonal exacerbations, no attacks but does have some mild, intermittent shortness of breath, thinks related to allergens. Denies sob with activity, no chest pain or dizziness. Uses albuterol when symptoms present and are relieved quickly with one dose. Requesting refill of albuterol inhaler. Lived in [facility] for 3 years, lots of sun exposure, has multiple nevi and moles, none concerning. Will refer to Derm for routine skin check. Works [employer], , has 3 year old son and 5 year old daughter (they will be 3 and 5 in September). BP 118/76 (BP Location (NBP): Left arm, Patient Position: Sitting, BP Cuff Sizes: Adult (25-34 cm)) Pulse 60 Ht 161.9 cm (5' 3.75) Wt 60.8 kg (134 lb) LMP 07/12/2016 (Approximate) SpO2 99% BMI 23.18 kg/m2 Active Ambulatory Problems Diagnosis Date Noted ??? Asthma 09/17/2014 ??? Encounter for general adult medical examination without abnormal findings 10/03/2014 ??? Bilateral bunions 08/09/2016 ??? Multiple benign nevi 08/09/2016 Resolved Ambulatory Problems Diagnosis Date Noted ??? Encounter for gynecological examination without abnormal finding 10/22/2014 ??? Encounter for screening for malignant neoplasm of cervix 10/22/2014 ??? Rash 10/03/2014 ??? Fracture of metacarpal base of left hand, closed 06/14/2016 No Additional Past Medical History Medications 08/09/16 0842 Medication Sig Taking? albuterol (PROVENTIL HFA;VENTOLIN HFA;PROAIR) 90 mcg/actuation HFA Aerosol Inhaler Inhale 2 puffs into the lungs every 4 hours as needed for Wheezing. Every 4-6 hours as needed for wheezing Yes multivitamin Capsule Take 1 capsule by mouth daily. Reported on 08/09/2016 Review of Systems Constitutional: Negative for activity [...] time. She appears well- developed and well-nourished. No distress. HENT: Head: Normocephalic and atraumatic. Right Ear: Hearing, tympanic membrane, external ear and ear canal normal. Left Ear: Hearing, tympanic membrane, external ear and ear canal normal. Mouth/Throat: Uvula is midline, oropharynx is clear and moist and mucous membranes are normal. Eyes: Conjunctivae and EOM are normal. Pupils are equal, round, and reactive to light. No scleral icterus. Neck: Neck supple. No thyromegaly present. Cardiovascular: Normal rate, regular rhythm and normal heart sounds. Pulmonary/Chest: Effort normal and breath sounds normal. No respiratory distress. She has no wheezes. Right breast exhibits no inverted nipple, no mass, no nipple discharge, no skin change and no tenderness. Left breast exhibits no inverted nipple, no mass, no nipple discharge, no skin change and no tenderness. Breasts are symmetrical. Abdominal: Soft. Bowel sounds are normal. Genitourinary: Uterus normal. Pelvic exam was performed with patient prone. There is no rash, tenderness, lesion or injury on the right labia. There is no rash, tenderness, lesion or injury on the leftlabia. Uterus is not tender. Cervix exhibits no motion tenderness. Right adnexum displays no tenderness and no fullness. Left adnexum displays no tenderness and no fullness. No erythema, tenderness or bleeding in the vagina. Musculoskeletal: She exhibits no edema or tenderness. Lymphadenopathy: She has no cervical adenopathy. Neurological: She is alert and oriented to person, place, and time. Skin: Skin is warm and dry. Psychiatric: She has a normal mood and affect. Her behavior is normal. Assessment and Plan: Multiple benign nevi No specific areas of concern. Derm referral entered for routine check. Bilateral bunions Referral placed to podiatry. Encounter for general adult medical examination without abnormal findings Normal exam. Up to date on HM topics, declines vaccines. Pap and labs to be updated next year. Asthma Well controlled, with exception of allergen triggers. Refilled inhaler. Consider PFTs or allergy referral if symptoms persist or worsen. Claritin daily during spring and fall (or when symptoms are the worst). ?rajivir documented in this encounter Miscellaneous Notes Assessment & Plan Note - Mercedes Schultz APRN - 08/09/2016 9:40 AM EDT Associated Problem(s): Asthma Well controlled, with exception of allergen triggers. Refilled inhaler. Consider PFTs or allergy referral if symptoms persist or worsen. Claritin daily during spring and fall (or when symptoms are the worst). ?rajivir Assessment & Plan Note - Mercedes Schultz APRN - 08/09/2016 9:39 AM EDT Associated Problem(s): Encounter for general adult medical examination without abnormal findings Normal exam. Up to date on HM topics, declines vaccines. Pap and labs to be updated next year. Assessment & Plan Note - Mercedes Schultz APRN - 08/09/2016 9:39 AM EDT Associated Problem(s): Bilateral bunions Referral placed to podiatry. Assessment & Plan Note - Mercedes Schultz APRN - 08/09/2016 9:38 AM EDT Associated Problem(s): Multiple benign nevi No specific areas of concern. Derm referral entered for routine check. documented in this encounter Plan of Treatment Upcoming Encounters Date Type Specialty Care Team Description 12/11/2021 Office Visit Primary Care Harsh Holley APRN [address] [place], [place] [address] (Wo rk) 12/16/2021 Appointment Radiology Bib Leonardo MD [address] [place], [place] [address] (Wo rk) Scheduled Referrals Name Type Priority Associated Order Schedule Diagnoses Referral to Podiatry Outpatient Referral Routine Bilateral bun ions Ordered: 08/09/2016 Referral to Outpatient Referral Routine Multiple benign Order ed: Dermatology nevi 08/09/2016 documented as of this encounter Visit Diagnoses Diagnosis Bilateral bunions Bunion Multiple benign nevi Benign neoplasm of skin, site unspecifie d Encounter for general adult medical exam ination without abnormal findings Unspecified general medical examination Mild intermittent asthma without complic ation Unspecified asthma Visit for screening mammogram Other screening mammogram documented in this encounter Care Teams Garment Sorter Relationship Specialty Start Date End Date Bib Leonardo MD PCP - General Family Medicine 06/01/16 [address] [place] [address] documented as of this encounter
--- OUTSIDE RECORDS SUMMARY | 2021-12-09 07:22 | XMS_ITS | Encounter Summary ---
:1980 Author Organization [facility] [place] [address] Care Team Providers Name Role Phone Apple Leonardo MD Primary Care Provider Reason for Visit Reason Onset Date Comments Triage 06/14/2016 Encounter Details Date Type Department Care Team Description 06/14/2016 Telephone Primary Care at [facility] Tameka Edwards, director plans [address] [place] [address] Social History Tobacco Use Types Packs/Day Years Used Date Never Smoker Sex Assigned at Date Recorded Female 12/22/2020 8:06 AM EDT documented as of this encounter Miscellaneous Notes Telephone Encounter - Tameka Edwards, RN - 06/14/2016 9:07 AM EST TRIAGE CALL [place] questions/Assessment: Spoke with pt, she reports last Tuesday she fell skiing. She reports immediately after, she was in a lot of pain in her left hand. She states the pain is primarily in her left hand just above the wrist. She states the area was swollen and bruised, is improving. She reports the swelling has gone away, but some movements are still painful. She denies numbness/tingling, cold/ blue fingers & hand. She reports taking Ibuprofen for the first couple days. Plan: Booked appt for today @ 3:[address] Pate. Name of Guideline/Protocol Used: [place]/wrist problems Home Care/Patient Education per Protocol/Guideline: no Patient/Responsible libertarian voices an understanding of advice? yes Patient/Responsible libertarian intends to comply with action/disposition: yes Reference used: Telephone Triage Protocols for Nurses, 5th Edition, Bianca [place], 2016 Telephone Encounter - Tameka Edwards, RN - 06/14/2016 9:05 AM EST Copied from [facility] #[id number]. Topic: Triage - Con Triage >> Jun 14, 2016 8:49 AM Nettie Kelly wrote: Reason: Patient said she injured her left hand about one week ago. She said she fell while skiing. She said there was immediate bruising and swelling and has continued pain. Patient is a new patient toDr Leonardo. She was a former patient of Savanna Wright. PCP: APPLE LEONARDO Personal Rep on File: n/a Okay to Leave a Message: yes SEND THIS MESSAGE TO: Primary Care: TEAM NURSE pool Or, if after 4:30pm, send to P CON PRIMARY AFTERHOURS Pedi: TEAM NURSE pool Or, if after 4:00pm send to P CON PEDI AFTERHOURS NURSE documented in this encounter Plan of Treatment Upcoming Encounters Date Type Specialty Care Team Description 12/11/2021 Office Visit Primary Care Harsh [place]ley APRN [address] [place] [address] (Wo rk) 12/16/2021 Appointment Radiology Apple Leonardo MD [address] [place], [place] [address] (Wo rk) documented as of this encounter Visit Diagnoses Not on filedocumented in this encounter Care Teams Anthropology Professor Relationship Specialty Start Date End Date Apple Leonardo MD PCP - General Family Medicine 06/01/[address] [place] [address] documented as of this encounter
--- OUTSIDE RECORDS SUMMARY | 2021-12-09 07:22 | XMS_ITS | Encounter Summary ---
:1980 Author Organization [facility] [place] [address] Care Team Providers Name Role Phone Bib Leonardo MD Primary Care Provider Reason for Visit Reason Onset Date Comments Medication Refill 01/05/2019 Encounter Details Date Type Department Care Team Description 01/05/2019 Refill Primary Care at [facility] Bib Leonardo MD [address] [place] [address] FAMILY MEDICINE [phone] [place], [place] [address] (Wo rk) Social History Tobacco Use Types Packs/Day Years Used Date Never Smoker Smokeless Tobacco: Never Used Sex Assigned at Date Recorded Female 12/22/2020 8:06 AM EDT documented as of this encounter Miscellaneous Notes Telephone Encounter - Marlen Whiteside CMA - 01/05/2019 8:54 AM EDT Last Prescription Fill Date: 09/04/18 Number Dispensed and Refills: 08/16 Last Related Office Visit: 09/04/18 Next appointment: Visit date not found No flowsheet data found. Lab Results Component Value Date HGB 14.0 01/31/2015 HCT 40.1 01/31/2015 CHLPL 170 12/24/2014 TRIG 43 12/24/2014 HDL 101 12/24/2014 LDLCHOL 60 12/24/2014 ALT 13 12/24/2014 AST 21 12/24/2014 NA 138 12/24/2014 K 4.5 12/24/2014 CL 103 12/24/2014 CREATININE 0.97 12/24/2014 TSH 1.19 12/24/2014 Telephone Encounter - Ernestine Sanchez - 01/05/2019 8:48 AM EDT Patient is out of medication & looking to corn picker SOO. documented in this encounter Plan of Treatment Upcoming Encounters Date Type Specialty Care Team Description 12/11/2021 Office Visit Primary Care Harsh Holley APRN [address] [place], [place] [address] (Wo rk) 12/16/2021 Appointment Radiology Bib Leonardo MD [address] [place], [place] [address] (Wo rk) documented as of this encounter Visit Diagnoses Not on filedocumented in this encounter Care Teams Library Page Relationship Specialty Start Date End Date Bib Leonardo MD PCP - General Family Medicine 06/01/16 [address] [place] [address] documented as of this encounter
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
--- OUTSIDE RECORDS SUMMARY | 2021-12-09 07:22 | XMS_ITS | Encounter Summary ---
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 without [place], [place] FAMILY MEDICINE abnormal findings [id number] [place] [address] [phone] (Wo rk) Social History Tobacco Use Types Packs/Day Years Used Date Never Smoker Smokeless Tobacco: Never Used Sex Assigned at Date Recorded Female 12/22/2020 8:06 AM EDT documented as of this encounter Last Filed Vital Signs Vital Sign Reading Time Taken Comments Blood Pressure 108/66 08/26/2017 8:18 AM EDT Pulse 52 08/26/2017 8:18 AM EDT Temperature - - Respiratory Rate 16 08/26/2017 8:18 AM EDT Oxygen Saturation - - Inhaled Oxygen Concentration - - Weight 59 kg (130 lb) 08/26/2017 8:18 AM EDT Height 162.6 cm (5' 4) 08/26/2017 8:18 AM EDT measured Body Mass Index 22.31 08/26/2017 8:18 AM EDT documented in this encounter Patient Instructions Patient InstructionsMercedes Schultz APRN - 08/26/2017 8:10 AM EDT It was nice to see you again. Your exam was normal today and you appear to be in good health. Please have your lab work done and we will be in touch with those results when available. If you have any questions or concerns, please let me know, otherwise we will see you back in 1 year for your next physical. documented in this encounter Progress Notes Mercedes Schultz APRN - 08/26/2017 8:10 AM EDT Subjective: Patient ID: Gretel Mendoza is a 37 y.o. female. HPI Patient presents today for a physical exam. Feeling well over all. Just returned from the [facility]. UTD on pap (2014). Does self breast exams. Has not seen dermatology for skin check yet. Cyst right groin area x 8 months. Not changing at all. Not tender or red. Normal periods. had a vasectomy in 2004. Kids are doing well, will be 4 and 6 next month. 's birthday is also in September, so busy month coming up. Exercising 5 days per week - biking and running. Balanced diet - plenty of fruits and vegetables, eats meat, calcium from vegetables - almond milk, some cheese, yogurt. Drinks 2 cups of coffee per day. ETOH 1-2 drinks a few nights per week. BP 108/66 Pulse 52 Resp 16 Ht 162.6 cm (5' 4) Comment: measured Wt 59 kg (130 lb) LMP 08/24/2017 (Exact Date) BMI 22.31 kg/m2 Active Ambulatory Problems Diagnosis Date Noted [...] 06/14/2016 No Additional Past Medical History Medications 08/26/17 0828 Medication Sig Taking? albuterol (PROVENTIL HFA;VENTOLIN HFA;PROAIR) 90 mcg/actuation HFA Aerosol Inhaler Inhale 2 puffs into the lungs every 4 hours as needed for Wheezing. Every 4-6 hours as needed for wheezing Yes Review of Systems Constitutional: Negative for activity [...] are normal. There is no tenderness. Genitourinary: Deferred. Having menses today. UTD on pap. Lymphadenopathy: She has no cervical adenopathy. Neurological: She is alert and oriented to person, place, and time. Skin: Skin is warm and dry. 2 small epidural cysts vs lymph nodes in right groin, mobile, non-tender, not erythematous. Psychiatric: She has a normal mood and affect. Her speech is normal and behavior is normal. Judgmentand thought content normal. Cognition and memory are normal. Assessment and Plan: Encounter for general adult medical examination without abnormal findings Normal exam. reviewed and updated. Labs ordered. Pap UTD, but patient may request sooner screening. Encouraged healthy lifestyle, continued exercise and balanced diet. Discussed self breast exam. Patient to follow up in 1 year for next SPE, sooner if needed. documented in this encounter Miscellaneous Notes Assessment & Plan Note - Mercedes Schultz APRN - 08/26/2017 8:32 AM EDT Associated Problem(s): Encounter for general adult medical examination without abnormal findings Normal exam. HM reviewed and updated. Labs ordered. Pap UTD, but patient may request sooner screening. Encouraged healthy lifestyle, continued exercise and balanced diet. Discussed self breast exam. Patient to follow up in 1 year for next SPE, sooner if needed. documented in this encounter Plan of Treatment Upcoming Encounters Date Type Specialty Care Team Description 12/11/2021 Office Visit Primary Care Harsh Holley APRN [address] [place], [place] [address] (Shila alves) 12/16/2021 Appointment Radiology Bib Leonardo MD [address] [place], [place] [address] (Shila alves) documented as of this encounter Visit Diagnoses Diagnosis Encounter for general adult medical exam ination without abnormal findings Unspecified general medical examination Visit for screening mammogram Other screening mammogram documented in this encounter Care Teams Bus And Sys Integration Senior Manager Relationship Specialty Start Date End Date Bib Leonardo MD PCP - General Family Medicine 06/01/[address] [place] [phone] documented as of this encounter
--- OUTSIDE RECORDS SUMMARY | 2021-12-09 07:22 | XMS_ITS | Encounter Summary ---
:1980 Author Organization [facility] [place] [address] Care Team Providers Name Role Phone Bib Leonardo MD Primary Care Provider Encounter Details Date Type Department Care Team Description 12/01/2020 Hospital Encounter Mammography/DXA at Bib Leonardo Visit for screening [facility] [place] mammogram [address] [id number] [phone] Social History Tobacco Use Types Packs/Day Years [...] Visit Primary Care Harsh Holley APRN [address] [place], [place] [address] (Wo rk) 12/16/2021 Appointment Radiology Bbi Leonardo MD [address] [place], [place] [address] (Wo rk) documented as of this encounter Procedures Procedure Name Priority Date/Time Associated Diagnosis Comme nts MAMMO SCREENING CAD Routine 12/01/2020 12:55 PM Visit for scre ening Results for this AND BO BILATERAL EDT mammogram procedure are in the results section. documented in this encounter Results Mammo Screening Cad and Bo Bilateral (12/01/2020 12:55 PM EDT) Anatomical Region Laterality Modality Breast Bilateral Mammography Specimen (Source) Anatomical Location Collection Method / Collectio n Time Received Time / Laterality Volume Impressions 12/02/2020 12:19 PM EDT The right breast demonstrates a focal asymmetry in the lower inner breast, at 5:00, 3 cm from the nipple, f or which additional imaging is recommended. The Breast Imaging Division will contact the patient to coordinate this follow-up. BI-RADS Category 0: Incomplete-Need Piotr tional Imaging Evaluation and/or Prior Mammograms for Comparison * ??Regular screening mammograms startin g between age 40 and 50 reduces the risk of from breast cancer. * ??All screening tests have both risks and benefits. These risks and benefits should be assessed for each individual p atient through discussion with their provider to determine their preferred east cancer screening schedule. * ??Women should [...] Patients and health care providers should discuss the history of each patient to decide if earlier screening and/or breast MRI are appropriate. * ??Screening should continue as long as [...] who have questions please contact the health manager care management that requested your imaging first. ? Narrative 12/02/2020 12:19 PM EDT EXAMINATION: MAMMO SCREENING CAD AND BO BILATERAL CLINICAL HISTORY: Routine screening. TECHNIQUE: CC and MLO views were obtaine d of each breast. 2-D and 3- D tomosynthesis images were obtained. Comp uter aided detection was used. COMPARISON: 07/19/2019. FINDINGS: Breast density: The breasts are heteroge neously dense, which may obscure small masses. The left breast is normal. The right breast demonstrates a focal as ymmetry in the lower inner breast, at 5:00, 3 cm from the nipple. Bib Leonardo MD IMG MAMMO ORDERABLES documented in this encounter Visit Diagnoses Diagnosis Visit for screening mammogram Other screening mammogram Visit for screening mammogram Other screening mammogram documented in this encounter Care Teams Drum Tender Relationship Specialty Start Date End Date Bib Leonardo MD PCP - General Family Medicine 06/01/[address] [place] [id number] documented as of this encounter
--- OUTSIDE RECORDS SUMMARY | 2021-12-09 07:22 | XMS_ITS | Encounter Summary ---
:1980 Author Organization [facility] [place] [address] Care Team Providers Name Role Phone Bib Leonardo MD Primary Care Provider Reason for Visit Reason Onset Date Comments Results 12/23/2016 Encounter Details Date Type Department Care Team Description 12/23/2016 Telephone Primary Care at [facility] Kenia Clement RN Results [address] [place] [address] Social History Tobacco Use Types Packs/Day Years Used Date Never Smoker Smokeless Tobacco: Never Used Sex Assigned at Date Recorded Female 12/22/2020 8:06 AM EDT documented as of this encounter Miscellaneous Notes Telephone Encounter - Kenia Clement RN - 12/23/2016 4:06 PM EDT Schedule in radiology here at [facility] called back. She spoke with manager collection and the patient will not be charged. The patient was updated and agrees to come back for the test. New order entered. Pt arrived in radiology. Telephone Encounter - Kenia Clement RN - 12/23/2016 2:23 PM EDT I spoke with radiology staff and they are looking into this question. Telephone Encounter - Kenia Clement RN - 12/23/2016 2:22 PM EDT ----- Message from Joie Yu MD sent at 12/23/2016 1:32 PM EDT ----- Contact patient and relay the result ? RLL infiltrate Radiologist recommending repeat CXR with nipple markers. Please contact radiology department to determine if patient will be billed again for reimaging documented in this encounter Plan of Treatment Upcoming Encounters Date Type Specialty Care Team Description 12/11/2021 Office Visit Primary Care Harsh Holley, [place] [address] [place], [place] [address] (Wo rk) 12/16/2021 Appointment Radiology Bib Leonardo MD [address] [place], [place] [address] (Wo rk) documented as of this encounter Results XR Chest PA or AP 1 view (12/23/2016 4:38 PM EDT) Anatomical Region Laterality Modality Chest N/A Computed Radiography Specimen (Source) Anatomical Location Collection Method / Collectio n Time Received Time / Laterality Volume Impressions 12/23/2016 4:39 PM EDT CLINICAL HISTORY: IMPRESSION: Question patchy right lower lobe infiltrate. Likely nipple shadow. Recommend repeat P A chest with nipple markers TECHNIQUE: 1 view of the chest with nipp le markers. COMPARISON: None FINDINGS: The small density in the left lower lung field was nipple shadow. There remains a possible patchy right lower lobe infil trate. IMPRESSION: Question right lower lobe infiltrate. Narrative 12/23/2016 4:39 PM EDT EXAMINATION: XR CHEST PA OR AP 1 VIEW Procedure Note Bassam Miller MD - 12/23/2016Format ting of this note might be different from the original. EXAMINATION: XR CHEST PA OR AP 1 VIEW IMPRESSION CLINICAL HISTORY: IMPRESSION: Question p atchy right lower lobe infiltrate. Likely nipple shadow. Recommend repeat P A chest with nipple markers TECHNIQUE: 1 view of the chest with nipp le markers. COMPARISON: None FINDINGS: The small density in the left lower lung field was nipple shadow. There remains a possible patchy right lower lobe infil trate. IMPRESSION: Question right lower lobe infiltrate. Joie Yu MD IMG DX ORDERABLES documented in this encounter Visit Diagnoses Diagnosis Rib pain on left side Chest pain, unspecified Visit for screening mammogram Other screening mammogram documented in this encounter Care Teams Hide Inspector Relationship Specialty Start Date End Date Bib Leonardo MD PCP - General Family Medicine 06/01/[address] [place] [phone] documented as of this encounter
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
--- OUTSIDE RECORDS SUMMARY | 2021-12-09 07:22 | XMS_ITS | Encounter Summary ---
:1980 Author Organization [facility] [place] [address] Care Team Providers Name Role Phone Bib Leonardo MD Primary Care Provider Reason for Visit Reason Comments Shortness of Breath Encounter Details Date Type Department Care Team Description 2019 Office Visit Ur[facility] at [facility], Mild in termittent asthma with acute exacerbation; Liat FUENTES Acute URI [address] [place] [address] 1 [id number] [phone] Social History Tobacco Use Types Packs/Day Years Used Date Never Smoker Smokeless Tobacco: Never Used Sex Assigned at Date Recorded Female 12/22/2020 8:06 AM EDT documented as of this encounter Last Filed Vital Signs Vital Sign Reading Time Taken Comments Blood Pressure 112/66 2019 3:11 PM EST Pulse 70 2019 3:11 PM EST Temperature 36.7 ??C (98.1 ??F) 2019 3:11 PM EST Respiratory Rate 16 2019 3:11 PM EST Oxygen Saturation 100% 2019 3:11 PM EST Inhaled Oxygen Concentration - - Weight 60.6 kg (133 lb 8 oz) 2019 3:11 PM EST Height - - Body Mass Index 23.28 11/09/2018 11:43 AM EDT documented in this encounter Patient Instructions Patient InstructionsLou Arteaga MD - 2019 3:00 PM EST Start prednisone with food and follow the taper instructions. Try to take earlier in the day if possible. Do not take right before bedtime. Continue the albuterol at least 4 times a day until your symptoms have resolved. If you develop fever, worsening chest pain/pain with breathing or the cough changes to be very wet and productive of sputum please start the antibiotic which will cover for pneumonia and atypical lung infections. Please take it with food but do not take it with multi-vitamins,calcium or magnesium supplements, tums or antacids or milk. Wait about two hours between the antibiotic and the previously listed substances. Doxycycline binds with calcium and you will not absorb it well and it will not work. Wear sunscreen if going outside it can cause increased sensitivity to sunlight/sunburn If you're not improving as expected, have worsening symptoms or new symptoms please call or be re-evaluated. This visit was an urgent care appointment and is not intended to replace visits with your primary care provider. documented in this encounter Progress Notes [facility] MD - 2019 3:00 PM EST Subjective: Patient ID: Gretel Mendoza is a 39 y.o. female. Patient presents with: Shortness of Breath Patient reports that she has had cold like s/sx x1week. Son has croup. S/sx started with nasal congestion now has developed into a non productive dry cough Pt states SOB started 4-5 days ago. Since onset pt is using ventolin inhaler more frequently. Pt states that she feels like she can not get a full breath. Mild chest tightness per pt. Reports that she sometimes has some mild SOB while at rest. Denies CP, fever, wheezing Pt is taking OTC cough suppressant Just used inhaler about 1 hour ago Cough This is a new problem. The current episode started in the past 7 days. The problem has been gradually worsening. The problem occurs constantly. The cough is non-productive. Associated symptoms include nasal congestion, rhinorrhea and shortness of breath. Pertinent negatives include no chest pain, chills, eye redness, fever, headaches, myalgias, rash, sore throat or wheezing. The symptoms are aggravated by lying down and exercise. She has tried OTC cough suppressant and steroid inhaler for the symptoms. The treatment provided mild relief. Her past medical history is significant for asthma and environmental allergies. There is no history of bronchitis or pneumonia. Review of Systems Constitutional: Negative for chills, fatigue and fever. HENT: Positive for rhinorrhea. Negative for congestion and sore throat. Eyes: Negative for discharge, redness and visual disturbance. Respiratory: Positive for cough and shortness of breath. Negative for wheezing. Cardiovascular: Negative for chest pain. Gastrointestinal: Negative for abdominal pain and vomiting. Genitourinary: Negative for dysuria. Musculoskeletal: Negative for arthralgias and myalgias. Skin: Negative for rash. Allergic/Immunologic: Positive for environmental allergies. Negative for immunocompromised state. Neurological: Negative for headaches. Objective: Physical Exam Constitutional: She appears well-developed and well-nourished. No distress. HENT: Right Ear: Tympanic membrane, external ear and ear canal normal. Left Ear: Tympanic membrane, external ear and ear canal normal. Nose: Mucosal edema and rhinorrhea present. Mouth/Throat: Mucous membranes are normal. No oral lesions. Posterior oropharyngeal erythema present. No oropharyngeal exudate. Neck: Neck supple. Cardiovascular: Normal rate, regular rhythm, normal heart sounds and intact distal pulses. Pulmonary/Chest: Breath sounds normal. No respiratory distress. She has no wheezes. She has no rales. Musculoskeletal: Normal range of motion. Lymphadenopathy: She has no cervical adenopathy. Neurological: She is alert. Skin: Skin is warm and dry. No rash noted. Vitals reviewed. BP 112/66 (BP Location (NBP): Left arm, Patient Position: Sitting, BP Cuff Sizes: Adult (25-34 cm)) Pulse 70 Temp 36.7 ??C (98.1 ??F) (Temporal) Resp 16 Wt 60.6 kg (133 lb 8 oz) LMP 03/08/2019 (Approximate) SpO2 100% BMI 23.28 kg/m?? Assessment and Plan: 1. Mild intermittent asthma with acute exacerbation 2. Acute URI Medication ordered or changed during this encounter, will not show discontinued medications Medications ??? predniSONE (DELTASONE) 20 mg Tablet Sig: Take 60 mg (3 tab) for 2 days, 40 mg (2 tabs) for 2 days, 20 mg (1 tab) for 2 days Dispense: 12 tablet Refill: 0 ??? doxycycline (VIBRA-TABS) 100 mg Tablet Sig: Take 1 tablet by mouth 2 times daily for 10 days. Dispense: 20 tablet Refill: 0 ??? albuterol 90 mcg/actuation HFA Aerosol Inhaler Sig: Inhale 2 puffs into the lungs every 4 hours as needed for Wheezing. Dispense: 2 Inhaler Refill: 1 OK to sub brand if insurance mandates. Preference is most cost-effective covered MDI first. Start prednisone with food and follow the taper instructions. Try to take earlier in the day if possible. Do not take right before bedtime. Continue the albuterol at least 4 times a day until your symptoms have resolved. If you develop fever, worsening chest pain/pain with breathing or the cough changes to be very wet and productive of sputum please start the antibiotic which will cover for pneumonia and atypical lung infections. Please take it with food but do not take it with multi-vitamins,calcium or magnesium supplements, tums or antacids or milk. Wait about two hours between the antibiotic and the previously listed substances. Doxycycline binds with calcium and you will not absorb it well and it will not work. Wear sunscreen if going outside it can cause increased sensitivity to sunlight/sunburn documented in this encounter Plan of Treatment Upcoming Encounters Date Type Specialty Care Team Description 12/11/2021 Office Visit Primary Care Harsh Holley APRN [address], [place] [address] (Wo joselyn) 12/16/2021 Appointment Radiology Bib Leonardo MD [address], [place] [address] ([place]o joselyn) documented as of this encounter Visit Diagnoses Diagnosis Mild intermittent asthma with acute exac erbation Unspecified asthma, with exacerbation Acute URI Acute upper respiratory infections of un specified site Visit for screening mammogram Other screening mammogram documented in this encounter Care Teams Law Tutor Relationship Specialty Start Date End Date Bib Leonardo MD PCP - General Family Medicine 06/01/16 [address] [place] [address] documented as of this encounter
--- OUTSIDE RECORDS SUMMARY | 2021-12-09 07:22 | XMS_ITS | Encounter Summary ---
:1980 Author Organization [facility] [place] [address] Care Team Providers Name Role Phone Bib Leonardo MD Primary Care Provider Encounter Details Date Type Department Care Team Description 07/19/2019 Ancillary Mammography at [facility] Breast lu mp in Procedure [place] female [address] [id number] [phone] Social History Tobacco Use Types Packs/Day Years Used Date Never Smoker Smokeless Tobacco: Never Used Sex Assigned at Date Recorded Female 12/22/2020 8:06 AM EDT documented as of this encounter Plan of Treatment Upcoming Encounters Date Type Specialty Care Team Description 12/11/2021 Office Visit Primary Care Harsh Holley APRN [address], [place] [address] (Wo rk) 12/16/2021 Appointment Radiology Bib Leonardo MD [address], [place] [address] (Wo rk) documented as of this encounter Procedures Procedure Name Priority Date/Time Associated Comments Diagnosis MAMMO DIAGNOSTIC CAD Routine 07/19/2019 11:24 AM Breast lump i n Results for this AND BO BILATERAL EST female procedure are in the results section. documented in this encounter Results US Breast Limited Left [...] mammogram documented in this encounter Care Teams Local Coordinator Relationship Specialty Start Date End Date Bib Leonardo MD PCP - General Family Medicine 06/01/[address] [place] [id number] documented as of this encounter
--- OUTSIDE RECORDS SUMMARY | 2021-12-09 07:22 | XMS_ITS | Encounter Summary ---
:1980 Author Organization [facility] [place] [address] Care Team Providers Name Role Phone Bib Leonardo MD Primary Care Provider Encounter Details Date Type Department Care Team Description 12/02/2019 Emergency Emergency Services a t [facility] [address] [place] [address] Social History Tobacco Use Types Packs/Day Years [...] for Wheezing. documented as of this encounter ED Notes Christina Cosby RN - 12/02/2019 8:59 PM EDT Verbal order from Dr. Raman for COVID test. Patient instructed to remain in vehicle. documented in this encounter Plan of Treatment Upcoming Encounters Date Type Specialty Care Team Description 12/11/2021 Office Visit Primary Care Harsh Holley APRN [address], [place] [address] (Wo rk) 12/16/2021 Appointment Radiology Bib Leonardo MD [address], [place] [address] (Wo rk) documented as of this encounter Procedures Procedure Name Priority Date/Time Associated Diagnosis Comme nts RAPID COVID-19 PCR STAT 12/02/2019 8:36 PM Res ults for this ([facility]) EDT procedure are in the results section. documented in this encounter Results COVID-19 PCR (12/02/2019 8:36 PM EDT) [facility] Method Time Signature SARS-CoV-2 Not Detected Not Detected RAMANA RNA PCR [facility] Comment: This result should be interpreted in com bination with the clinical observations, patient history and epidem iological information. For testing of asymptomatic individuals, assay performa nce characteristics and clinical utility have not been evaluated. Testing for SARS-CoV-2 (Severe acute respiratory syndrome coronavirus 2, form erly known as 2018 novel coronavirus or 2018-nCoV) to aid in the diagnosis of CO VID-19 is performed using the Simplexa COVID-19 Direct Assay by [email or web address] yost as authorized by the FDA issued Emergency Use Authorization (EUA). This assay is intended for In-vitro Diagnostic (IVD) use with nasopharyngeal swabs collected from individuals meeting the CDC criteria for testing. Th e assay is performed based on the instructions for use and additional guid ance provided by the FDA. Testing is performed in the Microbiology Laboratory within the Department of Pathology and Laboratory Medicine at [facility], certified under the Clinical Laboratory Improvement Amendmen ts of 1988 (CLIA), 42 U.S.C. section 263a, to perform high complexity tests. Assay performance has been verified according to clinical laboratory regulat ory requirements. Test results are provided above. A resul t of Not Detected indicates that the viral RNA target is not present but does not preclude SARS-CoV-2 infection. False negative results may occur if a sp ecimen is improperly collected, transported or handled; if amplification inhibitors are present; or if inadequate numbers of viral particles ar e present in the specimen. A result of Detected suggests a current or recent infection and the patient is presumed to be infected. Positive and negative pr edictive values for this test are highly dependent on disease prevalence. A result of Invalid indicates the inability to conclusively determine the presence or absence of SARS-CoV-2 RNA in the sample which can be due to a vari ety of factors. Recollection is recommended in the case of an invalid re sult. CDC COVID-19 criteria for testing on hum an specimens and clinical management guidance information are available at e CDC Coronavirus Disease 2019 (COVID-19) webpage under Information fo r Healthcare Professionals (https://www.cdc.gov/coronavirus/2019-nc ov/hcp/index.html). SARS-CoV-2 Source TREASURER Swab [facility] Specimen (Source) Anatomical Collection Method Collection Time Re ceived Time Location / / Volume Laterality Nasopharyngeal swab 12/02/2019 8:36 12/01 (specimen) PM EDT 11:43 PM EDT Comment: Symptoms->Surveillance Resulting Agency Comment Spec In Lab / [facility] Gadiel Raman MD MICROBIOLOGY - GENERAL ORDER FLAKO Performing Organization Address City/State/Z[place] [address] documented in this encounter Visit Diagnoses Not on filedocumented in this encounter Care Teams Hvac Residential Service Technician Relationship Specialty Start Date End Date Bib Leonardo MD PCP - General Family Medicine 06/01/[address] [place] [id number] documented as of this encounter
--- OUTSIDE RECORDS SUMMARY | 2021-12-09 07:22 | XMS_ITS | Encounter Summary ---
:1980 [place] [address] Care Team Providers Name Role Phone Bib Leonardo MD Primary Care Provider Encounter Details Date Type Department Care Team Description 07/05/2019 Laboratory Appointment [facility] Annual physical exam [address] [place] [address] Social History Tobacco Use Types Packs/Day Years Used Date Never Smoker Smokeless Tobacco: Never Used Sex Assigned at Date Recorded Female 12/22/2020 8:06 AM EDT documented as of this encounter Plan of Treatment Upcoming Encounters Date Type Specialty Care Team Description 12/11/2021 Office Visit Primary Care Harsh Holley APRN [address] [place], [place] [address] (Wo rk) 12/16/2021 Appointment Radiology Bib Leonardo MD [address] [place], [place] [address] (Wo rk) documented as of this encounter Procedures Procedure Name Priority Date/Time Associated Comments Diagnosis CMP W/FASTING GLUCOSE Routine 07/05/2019 7:51 AM Annual physic al Results for this EST exam procedure are i n the results section. HEMOGRAM Routine 07/05/2019 7:51 AM Annual physical Result s for this EST exam procedure are i n the results section. DIFFERENTIAL, Routine 07/05/2019 7:51 AM Annual physical Resul ts for this AUTOMATED EST exam procedure are i n the results section. HC CBC,PLT & AUTO Routine 07/05/2019 7:51 AM Annual physical DIFF EST exam HC VENIPUNCTURE Routine 07/05/2019 7:51 AM Annual physical Res ults for this EST exam procedure are i n the results section. LIPID PANEL (REFLEX Routine 07/05/2019 7:51 AM Annual physical Results for this DIRECT LDL) EST exam procedure are i n the results section. documented in this encounter Results (ABNORMAL) Differential, Automated (07/05/2019 7:51 AM EST) [facility] Method Time Signature Neutrophils % 43.7 % [facility] Neutr Abs (ANC) 1.67 (L) 1.70 - [facility] 6.10 [facility] x10(3)/[facility] LABORATORY Lymphocytes % 43.2 % [facility] Lymphocytes Abs 1.6 0.9 - 3.2 [facility] x10(3)/[facility] LABORATORY Monocytes % 8.1 % [facility] Monocyte Abs 0.3 0.3 - 0.9 [facility] x10(3)/[facility] LABORATORY Eosinophils % 3.7 % [facility] Eosinophils Abs 0.1 0.0 - 0.4 [facility] x10(3)/[facility] LABORATORY Basophils % 1.0 % [facility] Basophils Abs 0.0 0.0 - 0.1 [facility] x10(3)/[facility] LABORATORY Immature Gran % 0.30 % [facility] Comment: Immature granulocytes(IG's)percentage an d absolute count will include metamyelocytes, myelocytes, and promyelo cytes. Blood smears from CBCs yielding IG's will be scanned manually for concor dance. If this scan disagrees with the automated IG or if promyelocytes are not ed, a manual differential will be performed. Nat Gran Abs 0.01 0.00 - 0.04 x10(3)/[facility] Specimen Anatomical Collection Method Collection Time Receive d Time (Source) Location / / Volume Laterality Blood specimen 07/05/2019 7:51 AM 020 2:27 (specimen) EST PM EST Resulting Agency Comment Spec In Lab Mercedes Meade APRN HEMATOLOGY ORDERABLES Performing Organization Address City/State/ZIP Code Phon e Number [place] [phone] (ABNORMAL) Hemogram (07/05/2019 7:51 AM EST) athologist Signature WBC 3.8 (L) 4.0 - 9.5 [facility] [place] x10(3)/[facility] LABORATORY RBC 4.54 4.00 - [facility] 5.21 [facility] x10(6)/[facility] LABORATORY Hemoglobin 13.6 11.[address] [facility] gm/dL [facility] Hematocrit 42.0 35.7 [facility] 45.8 % [facility] MCV 92.5 82.6 [facility] 94.4 [facility] LABORATORY MCH 30.0 27.1 - [employer] [facility] 32.0 pg [facility] MCHC 32.4 31.7 - [facility] 35.0 gm/dL [facility] Platelets 226 145 - 357 [facility] LAB[facility]ATORY RDWSD 41.1 37.0 - [facility] [place] 46.0 [facility] LABORATORY RDWCV 12.1 11.5 - [facility] ORAL 14.1 % [facility] MPV 10.6 7.6 - 12.9 [facility] LABORATORY nRBC % Auto 0.0 % [facility] nRBC Abs Auto 0.000 0.000 - [facility] ORAL 0.000 [facility] x10(3)/[facility] LABORATORY Specimen Anatomical Collection Method Collection Time Receive d Time (Source) Location / / Volume Laterality Blood specimen 07/05/2019 7:51 AM 020 2:27 (specimen) EST PM EST Resulting Agency Comment Spec In Lab Mercedes Meade APRN HEMATOLOGY ORDERABLES Performing Organization Address City/State/[place] [address] CMP w/fasting Glucose (07/05/2019 7:51 AM EST) athologist Signature Glucose 86 65 - 99 [facility] Fasting mg/dL [facility] Comment: ?Fasting* Glucose Interpretive C riteria Normal ?65-99 mg/dL Impaired Fasting glucose ?100-125 mg/dL Consistent with Diabetes Mellitus ? >or= 126 mg/dL *Fasting is defined as no caloric intake for at least 8 hours In the absence of unequivocal hypergly cemia a plasma glucose value of >or= 126 mg/dL should be repeated on a subseq uent day. Diagnosis and Classification of Diabetes Mellitus, Position Statement from the [place] [employer]. ??Diabete s Care, Volume 33, Supplement 1, May 2009 BUN 15 8 - 18 mg/dL [facility] Creatinine 0.98 0.70 - 1.20 mg/dL [facility] Sodium 139 135 - 145 mmol/L [facility] Potassium 4.2 3.5 - 5.0 mmol/L [facility] Comment: Please note: ??Patients with WBC >100,00 0 may have falsely elevated Potassium levels. ??For accurate Potassium quantif ication in these patients send serum separator tube (gold top) for subsequent determinations. ??Contact the Clinical Chemistry Laboratory if there are any qu estions. Chloride 106 98 - 107 mmol/L [facility] CO2 24 22 - 31 mmol/L [facility] Anion Gap 9 5 - 15 mmol/L [facility] Calcium 9.2 8.5 - 10.5 mg/dL [facility] Total Protein 6.6 6.1 - 8.0 gm/dL [facility] Albumin 4.4 3.2 - 5.2 gm/dL [facility] AST 29 0 - 30 unit/L [facility] ALT 18 0 - 30 unit/L [facility] Alk Phos 65 35 - 105 unit/L [facility] Total Bilirubin 0.5 0.2 - 1.3 mg/dL [facility] Estimated GFR 73 >=60 mL/min/1.73 m?? [facility] Comment: The eGFR was calculated using the CKD-EP I equation. As with all creatinine based estimates of kidney function, eGFR values calculated with the CKD-EPI equation are not accurate in patients wi th acute kidney failure, extremes of body mass or the acutely ill. http://ID [place]/[facility] LIND[facility]Ynk[facility] eGFR 84 >=60 mL/min/1.73 m?? [facility] Comment: The eGFR was calculated using the CKD-EP I equation. As with all creatinine based estimates of kidney function, eGFR values calculated with the CKD-EPI equation are not accurate in patients wi th acute kidney failure, extremes of body mass or the acutely ill. http://[facility] [place]/[facility] Specimen Anatomical Collection Method Collection Time Receive d Time (Source) Location / / Volume Laterality Blood specimen 07/05/2019 7:51 AM 020 2:38 (specimen) EST PM EST Resulting Agency Comment Spec In Lab Mercedes Meade APRN CHEMISTRY ORDERABLES Performing Organization Address City/State/[place] [address] Lipid Panel (Reflex Direct LDL) (07/05/2019 7:51 AM EST) P athologist Signature Chol, Total 170 mg/dL [facility] Comment: Lower Risk: <200 mg/dL Average Risk: 200-239 mg/dL Higher Risk: >au=963 mg/dL Triglycerides 50 mg/dL [facility] Comment: Average Risk/Lower Risk: <150 mg/dL Borderline High Risk: 150-199 mg/dL High Risk: 200-499 mg/dL Very High Risk: >ke=836 mg/dL HDL 94 mg/dL [facility] Comment: Males: ?? Higher Risk: <40 mg/dL Females: ?? HIgher Risk: <50 mg/dL LDL Cholesterol 66 mg/dL [facility] Comment: Lowest Risk: <100 mg/dL Lower Risk: 100-129 mg/dL Borderline High Risk: 130-159 mg/dL High Risk: 160-189 mg/dL Very High Risk: >xp=586 mg/dL Chol/HDL Ratio 1.8 ratio [facility] Lipid Interpretation See Note [facility] Comment: Lipid management should be guided by a p atient? s ASCVD risk, goals and preferences. ACC/AHA Guidelines recommend high intens ity statin if clinical ASCVD or LDL greater than or equal to 190 mg/dL. http://[employer].com/HRC-GXJ-Lcttjsson Adults aged 40-75 with LDL 70-189 mg/dL should have their 10 year ASCVD risk estimated with the ACC/AHA ASCVD risk es timator http://tools.acc.org/GLTGA-Vqhd-Vsmsvezt r/ Statin should be discussed if risk great er than or equal to 7.5% in non-diabetics. With diabetes, moderate i ntensity statin is recommended if risk less than 7.5%, high intensity if risk g reater than or equal to 7.5%. Annual lipid monitoring on statins is no t necessary. Evaluate secondary causes of Triglycerid es greater than 500 mg/dL or LDL greater than 190 mg/dL: See table 6 of A CC/AHA Guideline. Lifestyle modification is a critical com ponent of ASCVD risk reduction. Specimen Anatomical Collection Method Collection Time Receive d Time (Source) Location / / Volume Laterality Blood specimen 07/05/2019 7:51 AM 020 2:38 (specimen) EST PM EST Resulting Agency Comment Spec In Lab Mercedes Meade APRN CHEMISTRY ORDERABLES Performing Organization Address City/State/[place] [address] TSH (07/05/2019 7:51 AM EST) P athologist Signature TSH 1.14 0.27 - 4.20 [facility] mcIU/mL [facility] Specimen Anatomical Collection Method Collection Time Receive d Time (Source) Location / / Volume Laterality Blood specimen 07/05/2019 7:51 AM 020 2:38 (specimen) EST PM EST Resulting Agency Comment Spec In Lab Mercedes E Meade SURGICAL MANAGER CHEMISTRY ORDERABLES Performing Organization Address City/State/[place] [address] documented in this encounter Visit Diagnoses Diagnosis Annual physical exam Routine general medical examination at a health care facility Visit for screening mammogram Other screening mammogram documented in this encounter Care Teams Core Cleaner Relationship Specialty Start Date End Date Bib Leonardo MD PCP - General Family Medicine 06/01/[address] [place] [id number] documented as of this encounter
--- OUTSIDE RECORDS SUMMARY | 2021-12-09 07:22 | XMS_ITS | Encounter Summary ---
:1980 [place] [address] Care Team Providers Name Role Phone Bib Leonardo MD Primary Care Provider Reason for Visit Reason Comments Skin Check Consultation (Routine) - Closed Specialty Diagnoses / Procedures Referred By Contact Refer red To Contact Dermatology Diagnoses Skin cancer screening Bib Leonardo MD [facility] Dermatology [address] [place] [address] [place] [address] Referral ID Status Reason Start Date Expiration Date Visits V isits Requested Authorized [id number] Closed Consult, 04/26/2019 04/25/2020 1 1 Test & Treat Encounter Details Date Type Department Care Team Description 07/03/2019 Office Visit Dermatology at [facility] [address] Amanuel Stokes MD Lentigines; [address] Multiple benign nevi; [place] [address] [place] [address] Milia; [phone] Dermatofibroma; (Work) Spot, [id number] Social History Tobacco Use Types Packs/Day Years Used Date Never Smoker Smokeless Tobacco: Never Used Sex Assigned at Date Recorded Female 12/22/2020 8:06 AM EDT documented as of this encounter Progress Notes Amanuel Stokes MD - 07/03/2019 8:30 AM EST [facility] Dermatology ([place]) CONSULT NOTE Date of service: 07/03/2019 Name: Gretel Mendoza : 1980 HPI: Ms. Gretel Mendoza is a 39 y.o. female seen today in consultation at the request of Bib Leonardo MD for evaluation and treatment of skin check. A copy of this note will be provided to Bib Leonardo MD for coordination of care. - admits to having a lot of sun exposure Denies any other new, changing, non-healing, or bleeding lesions. No other complaints other than as noted above. 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 She has never used smokeless tobacco. Review of Systems: - Constitutional: Feels well. - Skin: As per HPI; no other skin concerns. OBJECTIVE: Physical Exam: The patient is well-appearing, in no acute distress, alert and oriented x 3, mood and affect are normal. A full skin examination was performed of the scalp, face, neck, chest, abdomen, back, bilateral upper and lower extremities (incl hands/feet). Buttocks and breasts were examined with patient consent. Genitalia was not examined Additional specific skin findings below in Assessment/Plan ASSESSMENT / PLAN: 1. Solar Lentigo [Multiple light-brown evenly pigmented, well-demarcated macules on sun exposed areas] - benign, no concerning features seen on exam - etiology due to chronic solar damage reviewed with patient - sun protection reviewed (sunscreen, avoidance, clothing) and skin cancer warnings - risks of change discussed, patient reminded to look for new lesions or concerning changes 2. Benign Melanocytic Nevi [Well-bordered, symmetric, and evenly-pigmented brown macules containing an organized pigment network involving chest, abdomen, back, and extremities] - no concerning features identified - reviewed sun protection (sunscreen, avoidance, clothing) and skin cancer warnings - reviewed periodic self skin exams (ABCDEs of melanoma, new/changing lesions, ugly duckling sign) 3. Milia [1-2 mm white cystic papules located around eyelids] - benign, reassurance provided - treatment options reviewed with the patient including acne surgery vs punch excision - no further treatment indicated at this time / patient declines further intervention 4.Cafe au Lait Macule/Patch [light brown patch on the right lower abdomen] - benign entity discussed, no treatment/workup is recommended for an isolated or a few CALMs - reviewed that presence of more than 6 CALMs which are larger than a nickel MAY indicate an underlying genetic disease process 5. Dermatofibroma [Round to ovoid hyperpigmented firm papule to nodule involving left thigh and right sadler] - benign, reassurance provided - explained that these lesions often times arise at the site of minor trauma - while no concerning features were seen on exam today, patient advised that certain skin cancers can sometimes mimic a DF, thus the patient has been instructed to follow up should the lesion change orbecome symptomatic RTC PRN. Instructed to call with questions or concerns. Patient will otherwise follow up with Bib Leonardo MD for her further care. I Agnes Hernandez LPN have performed the documentation for this encounter in the presence of and acting as a scribe for Amanuel Stokes MD. I performed the services which were documented by the scribe, and I agree with the accuracy of the documentation in this encounter. Amanuel Stokes MD documented in this encounter Plan of Treatment Upcoming Encounters Date Type Specialty Care Team Description 12/11/2021 Office Visit Primary Care Harsh Holley APRN [address] [place], [place] [address] (Wo rk) 12/16/2021 Appointment Radiology Bib Leonardo MD [address] [place], [place] [address] (Wo joselyn) Scheduled Referrals Name Type Priority Associated Order Schedule Diagnoses Referral to Outpatient Referral Routine Skin cancer Ordered: Dermatology screening 04/26/2019 documented as of this encounter Visit Diagnoses Diagnosis Lentigines Other dyschromia Multiple benign nevi Benign neoplasm of skin, site unspecifie d Milia Sebaceous cyst Dermatofibroma Benign neoplasm of skin, site unspecifie d Spot, [id number] Other dyschromia Visit for screening mammogram Other screening mammogram documented in this encounter Care Teams Mortgage Banker Relationship Specialty Start Date End Date Bib Leonardo MD PCP - General Family Medicine 06/01/[address] [place] [id number] documented as of this encounter
--- OUTSIDE RECORDS SUMMARY | 2021-12-09 07:22 | XMS_ITS | Encounter Summary ---
:1980 [place] [address] Care Team Providers Name Role Phone Savanna Wright APRN Primary Care Provider [phone] Encounter Details Date Type Department Care Team Description 06/08/2015 Abstract Primary Care at [facility] Savanna Wright, [address] [place] [address] [address] [facility] [phone] [place], [place] [address] (Wo rk) Social History Tobacco Use Types Packs/Day Years Used Date Never Assessed Sex Assigned at Date Recorded Female 12/22/2020 8:06 AM EDT documented as of this encounter Plan of Treatment Upcoming Encounters Date Type Specialty Care Team Description 12/11/2021 Office Visit Primary Care Harsh Holley APRN [address] [place], [place] [address] (Wo rk) 12/16/2021 Appointment Radiology Bib Leonardo MD [address] [place], [place] [address] (Wo rk) documented as of this encounter Visit Diagnoses Not on filedocumented in this encounter Care Teams Commutator Tester Relationship Specialty Start Date End Date Savanna Wright APRN PCP - General 08/22/14 05/31/16 [address] [place] [address] documented as of this encounter
--- OUTSIDE RECORDS SUMMARY | 2021-12-09 07:22 | XMS_ITS | Encounter Summary ---
:1980 [place] [address] Care Team Providers Name Role Phone Apple Leonardo MD Primary Care Provider Encounter Details Date Type Department Care Team Description 12/24/2016 Telephone Primary Care at [facility] Janette Colon RN [address] [place] [phone] Social History Tobacco Use Types Packs/Day Years Used Date Never Smoker Smokeless Tobacco: Never Used Sex Assigned at Date Recorded Female 12/22/2020 8:06 AM EDT documented as of this encounter Miscellaneous Notes Telephone Encounter - Shanique Collins LPN - 12/24/2016 1:31 PM EDT Spoke to Patient, she states that she needs further clarification of results. Reviewed results with her again. She verbalizes understanding Telephone Encounter - Paula Covarrubias - 12/24/2016 12:04 PM EDT Patient returning phone call. [phone] Telephone Encounter - Shanique Collins LPN - 12/24/2016 11:43 AM EDT Left message on machine for Patient to return a call to the office. Telephone Encounter - Janette Colon, RN - 12/24/2016 11:39 AM EDT Copied from [facility] #[id number]. Topic: Generic Non-Symptom Based - Con Nurse Call >> Dec 24, 2016 11:33 AM Patrizia Chau wrote: Reason: Patient called with more questions PCP: APPLE LEONARDO Message: Refer to signed encounter Today 12/24/2016 SEND THIS MESSAGE TO: Primary Care: TEAM NURSE pool Pedi: TEAM NURSE pool documented in this encounter Plan of Treatment Upcoming Encounters Date Type Specialty Care Team Description 12/11/2021 Office Visit Primary Care Harsh Holley APRN [address] [place], [place] [address] (Wo rk) 12/16/2021 Appointment Radiology Apple Leonardo MD [address] [place], [place] [address] (Wo rk) documented as of this encounter Visit Diagnoses Not on filedocumented in this encounter Care Teams Metal Casting Trades Worker Relationship Specialty Start Date End Date Apple Leonardo MD PCP - General Family Medicine 06/01/16 [address] [place] [address] documented as of this encounter
--- OUTSIDE RECORDS SUMMARY | 2021-12-09 07:22 | XMS_ITS | Encounter Summary ---
:1980 Author Organization [facility] [place] [address] Care Team Providers Name Role Phone Bib Leonardo MD Primary Care Provider Reason for Visit Reason Comments Annual Exam Encounter Details Date Type Department Care Team Description 09/04/2018 Office Visit Primary Care at [facility], Annual physical exam [place] CLINICAL BIOSTATISTICS DIRECTOR [address] [place], [place] [facility] [address] [place] [address] [phone] (Wo rk) Social History Tobacco Use Types Packs/Day Years Used Date Never Smoker Smokeless Tobacco: Never Used Sex Assigned at Date Recorded Female 12/22/2020 8:06 AM EDT documented as of this encounter Last Filed Vital Signs Vital Sign Reading Time Taken Comments Blood Pressure 98/60 09/04/2018 8:14 AM EDT Pulse 64 09/04/2018 8:14 AM EDT Temperature - - Respiratory Rate 14 09/04/2018 8:14 AM EDT Oxygen Saturation - - Inhaled Oxygen Concentration - - Weight 58.5 kg (129 lb) 09/04/2018 8:14 AM EDT Height 161.3 cm (5' 3.5) 09/04/2018 8:14 AM EDT Measur ed Body Mass Index 22.49 09/04/2018 8:14 AM EDT documented in this encounter Patient Instructions Patient InstructionsMercedes Schultz, CLINICAL BIOSTATISTICS DIRECTOR - 09/04/2018 8:10 AM EDT It was nice to see you again. Your exam looked great today and you appear to be in good health. Please have your labs done and we will be in touch with those results when available. documented in this encounter Progress Notes Mercedes Schultz APRN - 09/04/2018 8:10 AM EDT Subjective: Patient ID: Gretel Mendoza is a 38 y.o. female. HPI Patient presents today for a physical exam. Seasonal allergies - uses albuterol as needed, more in the fall. Sometimes in the fall uses this nightly. Has not used inhaler in the last month. Cold sores - Valtrex as needed. Rx refilled today. Balanced diet - fruit, vegetables, meat, some dairy. Exercises daily - biking. Stationary bike in the winter. Races mountain bikes. About 20 miles on average. Normal periods, monthly, lasts about 4 days, heavy 1st day then tapers down after. BP 98/60 (BP Location (NBP): Left arm, Patient Position: Sitting, BP Cuff Sizes: Adult (25-34 cm)) Pulse 64 Resp 14 Ht 161.3 cm (5' 3.5) Comment: Measured Wt 58.5 kg (129 lb) LMP 08/31/2018 BMI 22.49 kg/m?? Active Ambulatory Problems Diagnosis Date Noted [...] 06/14/2016 No Additional Past Medical History Medications 09/04/18 0833 Medication Sig Taking? valACYclovir (VALTREX) 1 gram Tablet Take 2 tablets every 12 hours x 24 hours, take SOO after onsetYes albuterol 90 mcg/actuation HFA Aerosol Inhaler Inhale 2 puffs into the lungs every 4 hours as neededfor Wheezing. Yes Review of Systems Constitutional: Negative for [...] normal. There is no tenderness. Genitourinary: Deferred. Asymptomatic. UTD on pap. Lymphadenopathy: She has no cervical adenopathy. Neurological: She is alert and oriented to person, place, and time. Skin: Skin is warm and dry. Psychiatric: She has a normal mood and affect. Her speech is normal and behavior is normal. Judgmentand thought content normal. Cognition and memory are normal. Assessment and Plan: Annual physical exam Normal exam. HM reviewed and updated. Labs ordered. Encouraged healthy lifestyle, continued exercise and balanced diet. Discussed self breast exam, safety, stress management. Patient to follow up in 1 year for next SPE, sooner if needed. documented in this encounter Miscellaneous Notes Assessment & Plan Note - Mercedes Schultz APRN - 09/04/2018 9:11 AM EDT Associated Problem(s): Annual physical exam Normal exam. HM reviewed and updated. Labs ordered. Encouraged healthy lifestyle, continued exercise and balanced diet. Discussed self breast exam, safety, stress management. Patient to follow up in 1 year for next SPE, sooner if needed. documented in this encounter Plan of Treatment Upcoming Encounters Date Type Specialty Care Team Description 12/11/2021 Office Visit Primary Care Harsh Holley APRN [address] [place], [place] [address] (Shila alves) 12/16/2021 Appointment Radiology Bib Leonardo MD [address] [place], [place] [address] (Shila alves) documented as of this encounter Results TSH (07/05/2019 7:51 AM EST) P athologist Signature TSH 1.14 0.27 - 4.20 [facility] mcIU/mL [facility] Specimen Anatomical Collection Method Collection Time Receive d Time (Source) Location / / Volume Laterality Blood specimen 07/05/2019 7:51 AM 020 2:38 (specimen) EST PM EST Resulting Agency Comment Spec In Lab [facility] APRN CHEMISTRY ORDERABLES Performing Organization Address City/State/[place] [address] Lipid Panel (Reflex Direct LDL) (07/05/2019 7:51 AM EST) athologist Signature Chol, Total 170 mg/dL [facility] Comment: Lower Risk: <200 mg/dL Average Risk: 200-239 mg/dL Higher Risk: >dh=379 mg/dL Triglycerides 50 mg/dL [facility] Comment: Average Risk/Lower Risk: <150 mg/dL Borderline High Risk: 150-199 mg/dL High Risk: 200-499 mg/dL Very High Risk: >dv=444 mg/dL HDL 94 mg/dL [facility] Comment: Males: ?? Higher Risk: <40 mg/dL Females: ?? HIgher Risk: <50 mg/dL LDL Cholesterol 66 mg/dL [facility] Comment: Lowest Risk: <100 mg/dL Lower Risk: 100-129 mg/dL Borderline High Risk: 130-159 mg/dL High Risk: 160-189 mg/dL Very High Risk: >xx=973 mg/dL Chol/HDL Ratio 1.8 ratio [facility] Lipid Interpretation See Note [facility] Comment: Lipid management should be guided by a p atient? s ASCVD risk, goals and preferences. ACC/AHA Guidelines recommend high intens ity statin if clinical ASCVD or LDL greater than or equal to 190 mg/dL. http://Runrun.it.Tinkercad/JEX-CPO-Neyieuzdz Adults aged 40-75 with LDL 70-189 mg/dL should have their 10 year ASCVD risk estimated with the ACC/AHA ASCVD risk es timator http://tools.acc.org/IFQBA-Mirh-Mlndkrlw r/ Statin should be discussed if risk [...] Agency Comment Spec In Lab [facility] CLINICAL BIOSTATISTICS DIRECTOR CHEMISTRY ORDERABLES Performing Organization Address City/State/[place] [address] CMP w/fasting Glucose (07/05/2019 7:51 AM EST) athologist Signature Glucose 86 65 - 99 [facility] Fasting mg/dL [facility] Comment: ?Fasting* Glucose Interpretive C [...] of Diabetes Mellitus, Position Statement from the [place] [employer]. ??Diabete s Care, Volume 33, Supplement 1, May 2009 BUN 15 8 - 18 mg/dL [facility] Creatinine 0.98 0.70 - 1.20 mg/dL [facility] Sodium 139 135 - 145 mmol/L [facility] Potassium 4.2 3.5 - 5.0 mmol/L [facility] Comment: Please note: ??Patients with WBC >100,00 0 may have falsely elevated Potassium levels. ??For accurate Potassium quantif ication in these patients send serum separator tube (gold top) for subsequent determinations. ??Contact the Clinical Chemistry Laboratory if there are any qu estions. Chloride 106 98 - 107 mmol/L [facility] CO2 24 22 - 31 mmol/L [facility] Anion Gap 9 5 - 15 mmol/L [facility] Calcium 9.2 8.5 - 10.5 mg/dL [facility] Total Protein 6.6 6.1 - 8.0 gm/dL [facility] Albumin 4.4 3.2 - 5.2 gm/dL [facility] AST 29 0 - 30 unit/L [facility] ALT 18 0 - 30 unit/L [facility] Alk Phos 65 35 - 105 unit/L [facility] Total Bilirubin 0.5 0.2 - 1.3 mg/dL [facility] Estimated GFR 73 >=60 mL/min/1.73 m?? [facility] Comment: The eGFR was calculated using the CKD-EP I equation. As with all creatinine based estimates of kidney function, eGFR values calculated with the CKD-EPI equation are not accurate in patients wi th acute kidney failure, extremes of body mass or the acutely ill. http://BigString/[facility]nkf eGFR 84 >=60 mL/min/1.73 m?? [facility] Comment: The eGFR was calculated using the CKD-EP I equation. As with all creatinine based estimates of kidney function, eGFR values calculated with the CKD-EPI equation are not accurate in patients wi th acute kidney failure, extremes of body mass or the acutely ill. http://BigString/[facility] Specimen Anatomical Collection Method Collection Time Receive d Time (Source) Location / / Volume Laterality Blood specimen 07/05/2019 7:51 AM 020 2:38 (specimen) EST PM EST Resulting Agency Comment Spec In Lab [facility] APRN CHEMISTRY ORDERABLES Performing Organization Address City/State/[place] [address] documented in this encounter Visit Diagnoses Diagnosis Annual physical exam Routine general medical examination at a health care facility Visit for screening mammogram Other screening mammogram documented in this encounter Care Teams Acquisition Advisor Relationship Specialty Start Date End Date Bib Leonardo MD PCP - General Family Medicine 06/01/[address] [place] [id number] documented as of this encounter
--- OUTSIDE RECORDS SUMMARY | 2021-12-09 07:22 | XMS_ITS | Encounter Summary ---
:1980 Author Organization [facility] [place] [address] Care Team Providers Name Role Phone Bib Leonardo MD Primary Care Provider Reason for Visit Reason Comments Otalgia Encounter Details Date Type Department Care Team Description 11/09/2018 Office Visit Urgent Care at [address] Karen Fernandez, Acute otitis media [address] [facility] [place] [address] ear [phone] [place], [place] [address] Social History Tobacco Use Types Packs/Day Years Used Date Never Smoker Smokeless Tobacco: Never Used Sex Assigned at Date Recorded Female 12/22/2020 8:06 AM EDT documented as of this encounter Last Filed Vital Signs Vital Sign Reading Time Taken Comments Blood Pressure 114/66 11/09/2018 11:43 AM EDT Pulse 52 11/09/2018 11:43 AM EDT Temperature 36.6 ??C (97.9 ??F) 11/09/2018 11:43 AM EDT Respiratory Rate 14 11/09/2018 11:43 AM EDT Oxygen Saturation 100% 11/09/2018 11:43 AM EDT Inhaled Oxygen Concentration - - Weight 59.6 kg (131 lb 4.8 oz) 11/09/2018 11:43 AM EDT Height 161.3 cm (5' 3.5) 11/09/2018 11:43 AM EDT Body Mass Index 22.89 11/09/2018 11:43 AM EDT documented in this encounter Progress Notes Karen Fernandez PA - 11/09/2018 11:40 AM EDT Gretel Mendoza 38 y.o. female is here today with concern of bilateral otalgia ongoing for about aweek.. She reports the discomfort is greater on the left than the right. She does have some pressureand muffled hearing. She denies any tinnitus. She has not had any otorrhea but feels she has had slightly more wax than normal. She denies any concomitant sore throat, sinus pain, cough, fever or chills. She reports no recent known sick contacts. Allergies Allergen Reactions ??? Cat Dander Shortness Of Breath watery eyes ??? Dog Dander Shortness Of Breath Watery eys Past, social and family hx reviewed. ROS: Constitutional: no weakness or fatigue. No fever. ENT: has some congestion and hearing change, no problems swallowing. Cardiovascular: no chest pains, no LE swelling. Respiratory: no cough, no wheezing or shortness of breath. GI: no abdominal pain, no blood in the stool. Musculoskeletal: no joint pain or swelling. No muscle pain or weakness. Skin: no rashes or lesions. Objective: BP 114/66 (BP Location (NBP): Left arm, Patient Position: Sitting, BP Cuff Sizes: Adult (25-34 cm)) Pulse 52 Temp 36.6 ??C (97.9 ??F) (Temporal) Resp 14 Ht 161.3 cm (5' 3.5) Wt 59.6 kg (131 lb 4.8 oz) LMP 10/23/2018 (Approximate) SpO2 100% BMI 22.89 kg/m?? Body mass index is 22.89 kg/m??. PE: Alert. Oriented x3, well developed, well nourished 38 y.o. female in no acute distress. HEENT: Normocephalic, PERRLA, Left TM is erythematous and edematous with moderate effusion, Right TMwith small effusion but no erythema, bilateral canals without erythema or edema, Tug test negative bilaterally, pharynx normal, oral mucosa moist, no lesions. Neck: no lymphadenopathy. Chest: clear to auscultation bilaterally, no wheezes, no crackles. Cardiovascular: regular rhythm and rate, no murmurs. No LE edema. Abdomen: soft, non tender to palpation, no masses, normal bowel sounds. Skin: no rashes or lesions. A /P: 1. Acute otitis media with effusion of left ear Exam as per above C/W LOM Will start on Amox Advise supportive measures to include increased rest and fluids, tylenol/ibuprofen as needed for pain and comfort Patient advised to RTC/seek care SOO for any new or worsening symptoms Karen Fernandez PA-C documented in this encounter Plan of Treatment Upcoming Encounters Date Type Specialty Care Team Description 12/11/2021 Office Visit Primary Care Harsh Holley APRN [address] [place], [place] [address] (Wo rk) 12/16/2021 Appointment Radiology Bib Leonardo MD [address] [place], [place] [address] (Wo rk) documented as of this encounter Visit Diagnoses Diagnosis Acute otitis media with effusion of left ear Visit for screening mammogram Other screening mammogram documented in this encounter Care Teams Director Part Relationship Specialty Start Date End Date Bib Leonardo MD PCP - General Family Medicine 06/01/16 [address] [place] [address] documented as of this encounter
--- OUTSIDE RECORDS SUMMARY | 2021-12-09 07:22 | XMS_ITS | Encounter Summary ---
:1980 Author Organization [facility] [address] Care Team Providers Name Role Phone Bib Leonardo MD Primary Care Provider Reason for Visit Reason Onset Date Comments Results 12/24/2016 Encounter Details Date Type Department Care Team Description 12/24/2016 Telephone Primary Care at [facility] Shanique Collins, RN Results [address] [place] [address] Social History Tobacco Use Types Packs/Day Years Used Date Never Smoker Smokeless Tobacco: Never Used Sex Assigned at Date Recorded Female 12/22/2020 8:06 AM EDT documented as of this encounter Miscellaneous Notes Telephone Encounter - Shanique Collins LPN - 12/24/2016 10:43 AM EDT Spoke to Patient and advised of the below. She agrees with POC. FUV booked Telephone Encounter - Shanique Collins LPN - 12/24/2016 10:40 AM EDT ----- Message from Joie Yu MD sent at 12/24/2016 8:13 AM EDT ----- Questionable RLL infiltrate Consider Zpak for 5 days Follow up with PCP documented in this encounter Plan of Treatment Upcoming Encounters Date Type Specialty Care Team Description 12/11/2021 Office Visit Primary Care GertrudeHarsh Quiros APRN [address] [place], [place] [address] (Wo rk) 12/16/2021 Appointment Radiology Bib Leonardo MD [address] [place], [place] [address] (Wo rk) documented as of this encounter Visit Diagnoses Not on filedocumented in this encounter Care Teams Lounge Car Attendant Relationship Specialty Start Date End Date Bib Leonardo MD PCP - General Family Medicine 06/01/16 [address] [place] [address] documented as of this encounter
--- OUTSIDE RECORDS SUMMARY | 2021-12-09 07:22 | XMS_ITS | Encounter Summary ---
:1980 Author Organization [facility] [place] [address] Care Team Providers Name Role Phone Apple Leonardo MD Primary Care Provider Encounter Details Date Type Department Care Team Description 07/27/2018 Telephone Primary Care at [facility] Agnes Doyle RN [address] [place] [address] Social History Tobacco Use Types Packs/Day Years Used Date Never Smoker Smokeless Tobacco: Never Used Sex Assigned at Date Recorded Female 12/22/2020 8:06 AM EDT documented as of this encounter Miscellaneous Notes Telephone Encounter - Agnes Doyle RN - 07/28/2018 8:51 AM EDT Pt is aware and agreed with plan. Rx sent Telephone Encounter - Apple Leonardo MD - 07/27/2018 5:25 PM EDT Of note, when seen previously by urgent care, 04/2018, was advised to follow with PREMISES TECHNICIAN if ongoing vaginitis concerns. (pt has seen PREMISES TECHNICIAN in the past) - pcr Telephone Encounter - Apple Leonardo MD - 07/27/2018 5:22 PM EDT Ok for diflucan 150 mg x 1. Notify if persistence of symptoms, new symptoms or recurrence of symptoms- pcr Telephone Encounter - Agnes Doyle RN - 07/27/2018 2:45 PM EDT Spoke with pt. She is asking for diflucan for a yeast infection. She complains of: vaginal itching, she reports that has a little white discharge. She denies pelvic pain, or fevers. She uses [facility] Will forward to pcp for review Telephone Encounter - Agnes Doyle RN - 07/27/2018 2:40 PM EDT Copied from [facility] #[id number]. Topic: Triage - Con Triage >> Jul 27, 2018 2:14 PM Gonzales Oh wrote: Reason: yeast infection ?? PCP: APPLE LEONARDO ?? Personal Rep on File: ?? Message: Patient states she may have signs of a yeast infection for the past 5-6 days. She would like to see if she could be prescribed medication to treat infection. ?? Okay to Leave a Message: Yes ?? documented in this encounter Plan of Treatment Upcoming Encounters Date Type Specialty Care Team Description 12/11/2021 Office Visit Primary Care Harsh Holley APRN [address] [place], [place] [address] (Wo rk) 12/16/2021 Appointment Radiology Apple Leonardo MD [address] [place], [place] [address] (Wo rk) documented as of this encounter Visit Diagnoses Not on filedocumented in this encounter Care Teams Casting Molder Relationship Specialty Start Date End Date Apple Leonardo MD PCP - General Family Medicine 06/01/16 [address] [place] [address] documented as of this encounter
--- OUTSIDE RECORDS SUMMARY | 2021-12-09 07:22 | XMS_ITS | Encounter Summary ---
:1980 Author Organization [facility] [place] [address] Care Team Providers Name Role Phone Apple Leonardo MD Primary Care Provider Encounter Details Date Type Department Care Team Description 2019 Telephone Primary Care at [facility] Tiffany Maloney, RN [address] [place] [address] Social History Tobacco Use Types Packs/Day Years Used Date Never Smoker Smokeless Tobacco: Never Used Sex Assigned at Date Recorded Female 12/22/2020 8:06 AM EDT documented as of this encounter Miscellaneous Notes Telephone Encounter - Tiffany Maloney RN - 2019 9:24 AM EST TRIAGE CALL Subjective: I'm using my inhaler more [place] questions/Assessment: Spoke with patient. Patient reports that she has felt sick for about a week. Reports that she has a history of asthma. Reports that her son has croup. Reports that she had nasal congestion and was generally not feeling well. Reports that she has now developed a non-productive cough. Reports that it feels like a tight cough. Reports that the cough woke her up several times last night 03/28. Reports that she has been having to use her ventolin inhaler more frequently. Reports that she sometimes has some mild SOB while at rest. Patient able to speak clearly and in full sentences without issue. Denies chest pain. Denies fever. Denies pain with deep breaths. Denies wheezing/noisy breathing. Denies skin/mucous membrane discoloration. Plan: Patient advised to seek walk-in care. Name of Guideline/Protocol Used: Breathing Problems, Cough Home Care/Patient Education per Protocol/Guideline: yes Patient/Responsible constitution party voices an understanding of advice? yes Patient/Responsible constitution party intends to comply with action/disposition: yes Reference used: Telephone Triage Protocols for Nurses, 5th Edition, Bianca Stanton, 2016 Telephone Encounter - Tiffany Maloney, RN - 2019 9:24 AM EST Copied from [facility] #[id number]. Topic: Triage - Triage >> 2019 9:11 AM Rahel Zhou wrote: Symptom: Hard time breathing in the evening / cough /cold PCP: APPLE LEONARDO Additional Comments: Patient states she has a cold and cough. Patient has a hard time breathing in the evening. Please call to discuss documented in this encounter Plan of Treatment Upcoming Encounters Date Type Specialty Care Team Description 12/11/2021 Office Visit Primary Care Harsh Holley APRN [address] [place], [place] [address] (Wo rk) 12/16/2021 Appointment Radiology Apple Leonardo MD [address] [place], [place] [address] (Wo rk) documented as of this encounter Visit Diagnoses Not on filedocumented in this encounter Care Teams Theater Set Production Designer Relationship Specialty Start Date End Date Apple Leonardo MD PCP - General Family Medicine 06/01/16 [address] [place] [address] documented as of this encounter
--- OUTSIDE RECORDS SUMMARY | 2021-12-09 07:22 | XMS_ITS | Encounter Summary ---
:[address] [facility] [place] [address] Care Team Providers Name Role Phone CheyenneSavanna balbuena Blayne GROVE Primary Care Provider [phone] Encounter Details Date Type Department Care Team Description 09/19/2015 Abstract [facility] Provider, His [employer] Information Dwayne miller MD [address] [place] [address] Social History Tobacco Use Types Packs/Day Years Used Date Never Assessed Sex Assigned at Date Recorded Female 12/22/2020 8:06 AM EDT documented as of this encounter Last Filed Vital Signs Vital Sign Reading Time Taken Comments Blood Pressure 100/62 10/22/2014 3:13 PM EDT Pulse - - Temperature - - Respiratory Rate - - Oxygen Saturation - - Inhaled Oxygen Concentration - - Weight 57.6 kg (127 lb) 10/22/2014 3:13 PM EDT Height 161.3 cm (5' 3.5) 10/22/2014 3:13 PM EDT Body Mass Index 22.14 10/22/2014 3:13 PM EDT documented in this encounter Miscellaneous Notes [facility] History - Lucie Culp - 09/19/2015 3:14 PM EDT Copied documentation from [employer] record as of 02/13/15. documented in this encounter Plan of Treatment Upcoming Encounters Date Type Specialty Care Team Description 12/11/2021 Office Visit Primary Care Harsh Holley APRN [address] [place], [place] [address] (Wo rk) 12/16/2021 Appointment Radiology Bib Leonardo MD [address] [place], [place] [address] (Wo rk) documented as of this encounter Procedures Procedure Name Priority Date/Time Associated Diagnosis Comme nts EXTERNAL PAP SMEAR Routine 10/22/2014 Results f or this RESULT PANEL procedure are i n the results section . documented in this encounter Results (ABNORMAL) External Pap Smear (10/22/2014) Analysis Performed At Patho logist Time Signature External PAP NILM (SEE Smear RPT) (External Lab) His Liat Provider POINT OF CARE TEST ORDERABLE S documented in this encounter Visit Diagnoses Not on filedocumented in this encounter Care Teams Candy Feeder Relationship Specialty Start Date End Date Savanna Wright APRN PCP - General 08/22/14 05/31/16 [address] [place] [address] documented as of this encounter
--- OUTSIDE RECORDS SUMMARY | 2021-12-09 07:22 | XMS_ITS | Encounter Summary ---
:1980 Author Organization [facility] [place] [address] Care Team Providers Name Role Phone Bib Leonardo MD Primary Care Provider Reason for Visit Reason Comments Pharyngitis c/o sore throat, cough, laura estion, itchy eyes, and swollen glandsx2 weeks. tried ibuprofen with minimal relief Encounter Details Date Type Department Care Team Description 05/23/2017 Office Visit Urgent Care at [facility]leen Benavidez Acute r hinosinusitis [facility]iat [facility] [address] [place] [address] FAMILY MEDICINE [id number] [place] [address] [phone] (Wo rk) Social History Tobacco Use Types Packs/Day Years Used Date Never Smoker Smokeless Tobacco: Never Used Sex Assigned at Date Recorded Female 12/22/2020 8:06 AM EDT documented as of this encounter Last Filed Vital Signs Vital Sign Reading Time Taken Comments Blood Pressure 114/72 05/23/2017 6:01 PM EST Pulse 57 05/23/2017 6:01 PM EST Temperature 36.4 ??C (97.6 ??F) 05/23/2017 6:01 PM EST Respiratory Rate - - Oxygen Saturation 100% 05/23/2017 6:01 PM EST Inhaled Oxygen Concentration - - Weight 57.6 kg (127 lb) 05/23/2017 6:01 PM EST Height 161.9 cm (5' 3.74) 05/23/2017 6:01 PM EST Body Mass Index 21.98 05/23/2017 6:01 PM EST documented in this encounter Patient Instructions Patient InstructionsCharleen Benavidez MD - 05/23/2017 6:16 PM EST Images from the original note were not included. Augmentin 875 mg- take 1 tablet twice daily for 10 days. Eat yogurt or take a probiotic daily while on antibiotic and for 5 days after completion Drink plenty of water. Flonase OTC nasal spray- use 2 sprays to each nostril daily Return or follow up with your primary care provider for any new or worsening symptoms. If you need immediate treatment, recommend that you go to the nearest emergency department. Sinusitis: Care Instructions Your Care Instructions Sinusitis is an infection of the lining of the sinus cavities in your head. Sinusitis often follows a cold. It causes pain and pressure in your head and face. In most cases, sinusitis gets better on its own in 1 to 2 weeks. But some mild symptoms may last forseveral weeks. Sometimes antibiotics are needed. Follow-up care is a lutz part of your treatment and safety. Be sure to make and go to all appointments, and call your doctor if you are having problems. It's also a good idea to know your test results and keep a list of the medicines you take. How can you care for yourself at home? ?? Take an jzuo-jbv-yhqabdc pain medicine, such as acetaminophen (Tylenol), ibuprofen (Advil, Motrin), or naproxen (Aleve). Read and follow all instructions on the label. ?? If the doctor prescribed antibiotics, take them as directed. Do not stop taking them just becauseyou feel better. You need to take the full course of antibiotics. ?? Be careful when taking mtjo-eps-muheypz cold or flu medicines and Tylenol at the same time. Many of these medicines have acetaminophen, which is Tylenol. Read the labels to make sure that you are not taking more than the recommended dose. Too much acetaminophen (Tylenol) can be harmful. ?? Breathe warm, moist air from a steamy shower, a hot bath, or a sink filled with hot water. Avoid cold, dry air. Using a humidifier in your home may help. Follow the directions for cleaning the machine. ?? Use saline (saltwater) nasal washes to help keep your nasal passages open and wash out mucus and bacteria. You can buy saline nose drops at a grocery store or [employer]. Or you can make your own at home by adding 1 teaspoon of salt and 1 teaspoon of baking soda to 2 cups of distilled water. If you make your own, fill a bulb syringe with the solution, insert the tip into your nostril, and squeeze gently. Blow your nose. ?? Put a hot, wet towel or a warm gel pack on your face 3 or 4 times a day for 5 to 10 minutes each time. ?? Try a decongestant nasal spray like oxymetazoline (Afrin). Do not use it for more than 3 days in a row. Using it for more than 3 days can make your congestion worse. When should you call for help? Call your doctor now or seek immediate medical care if: ? ?? You have new or worse swelling or redness in your face or around your eyes. ? ?? You have a new or higher fever. ?Watch closely for changes in your health, and be sure to contact your doctor if: ? ?? You have new or worse facial pain. ? ?? The mucus from your nose becomes thicker (like pus) or has new blood in it. ? ?? You are not getting better as expected. Where can you learn more? Visit our health information library at http://[employer]. You can also view health information on [employer], your personal patient account. Log in or sign up today. Enter I933 in the search box to learn more about Sinusitis: Care Instructions. Current as of: September 24, 2016 Content Version: 11.4 ?? 5495-5492 [facility]. Care instructions adapted under license by [facility]. If you have questions about a medical condition or this instruction, always ask your healthcare professional. [facility] disclaims any warranty or liability for your use of this information. documented in this encounter Progress Notes Charleen Benavidez MD - 05/23/2017 6:00 PM EST Subjective: Patient ID: Gretel Mendoza is a 37 y.o. female. HPI Comments: Patient presents with: Pharyngitis: c/o sore throat, cough, congestion, itchy eyes, and swollen glandsx2 weeks. tried ibuprofen with minimal relief Pharyngitis This is a new problem. The current episode started 1 to 4 weeks ago. The problem occurs constantly. The problem has been unchanged. Associated symptoms include congestion, coughing, a sore throat and swollen glands. Pertinent negatives include no chills, fatigue, fever, nausea, vertigo or vomiting. The symptoms are aggravated by swallowing. She has tried NSAIDs (sudafed, advil) for the symptoms. The treatment provided mild relief. Congestion and sore throat for 2 weeks. The cold was getting better and now with sore throat. Review of Systems Constitutional: Negative for chills, fatigue and fever. HENT: Positive for congestion and sore throat. Respiratory: Positive for cough. Gastrointestinal: Negative for nausea and vomiting. Neurological: Negative for vertigo. Current Outpatient Prescriptions: ??? albuterol (PROVENTIL HFA;VENTOLIN HFA;PROAIR) 90 mcg/actuation HFA Aerosol Inhaler, Inhale 2 puffs into the lungs every 4 hours as needed for Wheezing. Every 4-6 hours as needed for wheezing, Disp:2 Inhaler, Rfl: 1 ??? multivitamin Capsule, Take 1 capsule by mouth daily. Reported on 08/09/2016, Disp: , Rfl: Allergies Allergen Reactions ??? Cat Dander Shortness Of Breath watery eyes ??? Dog Dander Shortness Of Breath Watery eys Objective: Physical Exam Constitutional: She appears well-developed and well-nourished. No distress. HENT: Head: Normocephalic and atraumatic. Right Ear: Hearing, tympanic membrane, external ear and ear canal normal. Left Ear: Hearing, tympanic membrane, external ear and ear canal normal. Nose: Mucosal edema and rhinorrhea present. Right sinus exhibits maxillary sinus tenderness. Mouth/Throat: Uvula is midline. No oral lesions. Posterior oropharyngeal edema and posterior oropharyngeal erythema present. No oropharyngeal exudate. Cobblestoning and drainage in the posterior pharynx Neck: Normal range of motion. Neck supple. Cardiovascular: Normal rate, regular rhythm, normal heart sounds and intact distal pulses. Pulmonary/Chest: Effort normal and breath sounds normal. Skin: Skin is warm and dry. BP 114/72 Pulse 57 Temp 36.4 ??C (97.6 ??F) (Temporal) Ht 161.9 cm (5' 3.74) Wt 57.6 kg (127 lb) LMP 05/16/2017 (Approximate) SpO2 100% BMI 21.98 kg/m2 Assessment and Plan: 1. Acute rhinosinusitis Symptoms greater than 2 weeks. Augmentin 875 mg- take 1 tablet twice daily for 10 days. Eat yogurt or take a probiotic daily while on antibiotic and for 5 days after completion Drink plenty of water. Flonase OTC nasal spray- use 2 sprays to each nostril daily Return or follow up with your primary care provider for any new or worsening symptoms. If you need immediate treatment, recommend that you go to the nearest emergency department. documented in this encounter Plan of Treatment Upcoming Encounters Date Type Specialty Care Team Description 12/11/2021 Office Visit Primary Care Harsh Holley APRN [address] [place], [place] [address] (Wo rk) 12/16/2021 Appointment Radiology Bib Leonardo MD [address] [place], [place] [address] (Wo rk) documented as of this encounter Visit Diagnoses Diagnosis Acute rhinosinusitis Acute sinusitis, unspecified Visit for screening mammogram Other screening mammogram documented in this encounter Care Teams Infant Childcare Provider Relationship Specialty Start Date End Date Bib Leonardo MD PCP - General Family Medicine 06/01/16 [address] [place] [address] documented as of this encounter
--- OUTSIDE RECORDS SUMMARY | 2021-12-09 07:22 | XMS_ITS | Encounter Summary ---
:1980 Author Organization [place] [address] Care Team Providers Name Role Phone Bib Leonardo MD Primary Care Provider Reason for Visit Reason Comments Follow-up Travel Paperwork Encounter Details Date Type Department Care Team Description 11/12/2019 Office Visit Primary Care at [facility] Encoun ter for general [place] [facility] DOC[facility]OV[facility] SPECIALIST adult medical [address] examination without [place], [place] FAMILY MEDICINE abnormal findings [id number] [place] [address] [phone] (Wo rk) Social History Tobacco Use Types Packs/Day Years Used Date Never Smoker Smokeless Tobacco: Never Used Sex Assigned at Date Recorded Female 12/22/2020 8:06 AM EDT documented as of this encounter Last Filed Vital Signs Vital Sign Reading Time Taken Comments Blood Pressure 102/60 11/12/2019 2:59 PM EDT Pulse 50 11/12/2019 2:59 PM EDT Temperature - - Respiratory Rate 14 11/12/2019 2:59 PM EDT Oxygen Saturation 98% 11/12/2019 2:59 PM EDT Inhaled Oxygen Concentration - - Weight 59 kg (130 lb) 11/12/2019 2:59 PM EDT Height 162.6 cm (5' 4.02) 11/12/2019 2:59 PM EDT Body Mass Index 22.3 11/12/2019 2:59 PM EDT documented in this encounter Progress Notes Mercedes Schultz APRN - 11/12/2019 2:50 PM EDT Subjective: Patient ID: Gretel Mendoza is a 39 y.o. female. HPI Gretel presents today for a limited physical exam and completion of a form for immigration in [facility]. She will be relocating for the next year or so and will need clearance letter. Physical exam done in June and was normal. Today, she denies any changes to her medical history or state of health. She is doing well and denies any complaints or acute illness. BP 102/60 (BP Location (NBP): Left arm, Patient Position: Sitting, BP Cuff Sizes: Adult (25-34 cm)) Pulse 50 Resp 14 Ht 162.6 cm (5' 4.02) Wt 59 kg (130 lb) LMP 10/15/2019 SpO2 98% BMI 22.30 kg/m?? Active Ambulatory Problems Diagnosis Date Noted ??? Asthma 09/17/2014 ??? Encounter for general adult medical examination without abnormal findings 10/03/2014 ??? Bilateral bunions 08/09/2016 ??? Multiple benign nevi 08/09/2016 ??? Annual physical exam 09/04/2018 ??? Breast lump in female 07/19/2019 Resolved Ambulatory Problems Diagnosis Date Noted ??? Encounter for gynecological examination without abnormal finding 10/22/2014 ??? Encounter for screening for malignant neoplasm of cervix 10/22/2014 ??? Rash 10/03/2014 ??? Fracture of metacarpal base of left hand, closed 06/14/2016 No Additional Past Medical History Medications 11/12/19 1511 Medication Sig Taking? albuterol 90 mcg/actuation HFA [...] self-injury andsuicidal ideas. Objective: Physical Exam Constitutional: Appears well-developed and well-nourished. No distress. HENT: Head: Normocephalic and atraumatic. Cardiovascular: Normal rate, regular rhythm, normal heart sounds. Pulmonary/Chest: Effort normal and breath sounds normal. No respiratory distress. No wheezes. Musculoskeletal: Exhibits no edema. Neurological: Alert and oriented to person, place, and time. Skin: Skin is warm and dry. Psychiatric: Normal mood and affect. Behavior is normal. Assessment and Plan: No problem-specific Assessment & Plan notes found for this encounter. documented in this encounter Miscellaneous Notes Assessment & Plan Note - Mercedes Schultz APRN - 11/12/2019 3:33 PM EDT Associated Problem(s): Encounter for general adult medical examination without abnormal findings Limited exam normal. Forms completed. documented in this encounter Plan of Treatment Upcoming Encounters Date Type Specialty Care Team Description 12/11/2021 Office Visit Primary Care Harsh Holley APRN [address] [place], [place] [address] (Shila alves) 12/16/2021 Appointment Radiology Bib Leonardo MD [address] [place], [place] [address] (Shila alves) documented as of this encounter Visit Diagnoses Diagnosis Encounter for general adult medical exam ination without abnormal findings Unspecified general medical examination Visit for screening mammogram Other screening mammogram documented in this encounter Care Teams Manager Unit Relationship Specialty Start Date End Date Bib Leonardo MD PCP - General Family Medicine 06/01/[address] [place] [id number] documented as of this encounter
--- OUTSIDE RECORDS SUMMARY | 2021-12-09 07:22 | XMS_ITS | Encounter Summary ---
:1980 Author Organization [place] [address] Care Team Providers Name Role Phone Bib Leonardo MD Primary Care Provider Reason for Referral Consultation (Routine) - Closed Specialty Diagnoses / Procedures Referred By Contact Refer red To Contact Orthopaedics Diagnoses Fracture of metacarpal base of left hand, closed, initial encounter Charleen Benavidez MD [facility] [address] [address] [place] [address] Referral ID Status Reason Start Date Expiration Date Visits V isits Requested Authorized [id number] Closed Consult, 06/14/2016 06/14/2017 1 1 Test & Treat Reason for Visit Reason Comments Hand Injury LEFT hand injury x1 week. fe ll while skiing and landed on her hand funny. states that she's not sure o f how she fell or which way her hand twisted if at all. pain is localized below the 5th digit to the wrist. pain 5/10. swelled up and pain that day . Encounter Details Date Type Department Care Team Description 06/14/2016 Office Visit Urgent Care at Charleen Benavidez, Left hurley nd pain; Liat FUENTES Fracture of metacarpal base of left hand , closed, initial encounter [address] [address] [place] [address] [phone] (Wo rk) Social History Tobacco Use Types Packs/Day Years Used Date Never Smoker Sex Assigned at Date Recorded Female 12/22/2020 8:06 AM EDT documented as of this encounter Last Filed Vital Signs Vital Sign Reading Time Taken Comments Blood Pressure 112/68 06/14/2016 3:07 PM EST Pulse 56 06/14/2016 3:07 PM EST Temperature 36.6 ??C (97.8 ??F) 06/14/2016 3:07 PM EST Respiratory Rate - - Oxygen Saturation 100% 06/14/2016 3:07 PM EST Inhaled Oxygen Concentration - - Weight 57.2 kg (126 lb) 06/14/2016 3:07 PM EST Height - - Body Mass Index 21.97 10/22/2014 3:13 PM EDT documented in this encounter Patient Instructions Patient InstructionsCharleen Benavidez MD - 06/14/2016 4:00 PM EST Intermittent ice and elevation of hand May use otc ibuprofen as needed for pain. Return or follow up with your primary care provider for any new or worsening symptoms. If you need immediate treatment, recommend that you go to the nearest emergency department. [facility] Hand Pain: Care Instructions Your Care Instructions Common causes of hand pain are overuse and injuries, such as might happen during sports or home repair projects. Everyday wear and tear, especially as you get older, also can cause hand pain. Most minor hand injuries will heal on their own, and home treatment is usually all you need to do. If you have sudden and severe pain, you may need tests and treatment. Follow-up care is a lutz part of your treatment and safety. Be sure to make and go to all appointments, and call your doctor if you are having problems. It???s also a good idea to know your test resultsand keep a list of the medicines you take. How can you care for yourself at home? ?? Take pain medicines exactly as directed. ?? If the doctor gave you a prescription medicine for pain, take it as prescribed. ?? If you are not taking a prescription pain medicine, ask your doctor if you can take an pnxd-fla-idbrwyr medicine. ?? Rest and protect your hand. Take a break from any activity that may cause pain. ?? Put ice or a cold pack on your hand for 10 to 20 minutes at a time. Put a thin cloth between the ice and your skin. ?? Prop up the sore hand on a pillow when you ice it or anytime you sit or lie down during the next 3 days. Try to keep it above the level of your heart. This will help reduce swelling. ?? If your doctor recommends a sling, splint, or elastic bandage to support your hand, wear it as directed. When should you call for help? Call 911 anytime you think you may need emergency care. For example, call if: ?? Your hand turns cool or pale or changes color. Call your doctor now or seek immediate medical care if: ?? You cannot move your hand. ?? Your hand pops, moves out of its normal position, and then returns to its normal position. ?? You have signs of infection, such as: ?? Increased pain, swelling, warmth, or redness. ?? Red streaks leading from the sore area. ?? Pus draining from a place on your hand. ?? A fever. ?? Your hand feels numb or tingly. Watch closely for changes in your health, and be sure to contact your doctor if: ?? Your hand feels unstable when you try to use it. ?? You do not get better as expected. ?? You have any new symptoms, such as swelling. ?? Bruises from an injury to your hand last longer than 2 weeks. Where can you learn more? Visit our health information library at [email or web address] You can also view health information on [email or web address], your personal patient account. Log in or sign up today. Enter R273 in the search box to learn more about Hand Pain: Care Instructions. ?? [id number] [employer]. Care instructions adapted under license by [facility]. This care instruction is for use with your licensed healthcare professional. If you have questionsabout a medical condition or this instruction, always ask your healthcare professional. [employer] disclaims any warranty or liability for your use of this information. Content Version: 11.0.525661; Current as of: October 10, 2015 documented in this encounter Progress Notes Charleen Benavidez MD - 06/14/2016 3:10 PM EST Name: Gretel Mendoza Address: [address] [place] [address] [place] [address] : 1980 Age: 36 y.o. Gender: female Encounter Date: 06/14/2016 Primary Provider: Bib Leonardo MD REASON FOR CONSULT, VISIT: Chief Complaint Patient presents with ??? Hand Injury LEFT hand injury x1 week. fell while skiing and landed on her hand funny. states that she's not sure of how she fell or which way her hand twisted if at all. pain is localized below the 5th digit to the wrist. pain 5/10. swelled up and pain that day. Patient Active Problem List Diagnosis ??? Encounter for gynecological examination without abnormal finding ??? Encounter for screening for malignant neoplasm of cervix ??? Encounter for general adult medical examination without abnormal findings ??? Rash ??? Asthma SUBJECTIVE: Gretel Mendoza presents alone and provides history. She presents with left hand pain for 1 week. She had [place] She is not exactly sure the mechanism of injury, but did have immediate pain in the left hand. She did have bruising and swelling of the hand. The pain has improved some, but worsens with movement. She is taking ibuprofen for the pain. PAST MEDICAL HISTORY No past medical history on file. Patient denies any additional significant past medical history. PAST SURGERY No past surgical history on file. Patient denies any additional significant past surgical history. MEDICATIONS/ALLERGIES: Allergies Allergen Reactions ??? Cat Dander Shortness Of Breath watery eyes ??? Dog Dander Shortness Of Breath Watery eys Current Outpatient Prescriptions Medication Sig Dispense Refill ??? multivitamin Capsule Take 1 capsule by mouth daily. ??? triamcinolone (KENALOG) 0.1 % Cream Apply topically. AAA tid ??? albuterol (PROVENTIL HFA;VENTOLIN HFA;PROAIR) 90 mcg/actuation HFA Aerosol Inhaler Inhale 2 puffs into the lungs. Every 4-6 hours as needed for wheezing No current facility-administered medications for this visit. FAMILY HISTORY Patient denies any additional significant family medical history. SOCIAL HISTORY Patient denies any additional significant social history. Review of Systems Constitutional: Negative for activity change, chills, fatigue and fever. Respiratory: Negative for cough and shortness of breath. Musculoskeletal: Positive for joint swelling. Negative for arthralgias, back pain, gait problem, neck pain and neck stiffness. Skin: Negative for rash and wound. Bruising present on hand Neurological: Negative for weakness and numbness. OBJECTIVE: BP 112/68 Pulse 56 Temp 36.6 ??C (97.8 ??F) (Temporal) Wt 57.2 kg (126 lb) LMP 05/31/2016 (Approximate) SpO2 100% BMI 21.97 kg/m2 Physical Exam Constitutional: She appears well-developed and well-nourished. No distress. Neck: Normal range of motion. Neck supple. Cardiovascular: Normal rate, regular rhythm, normal heart sounds and intact distal pulses. Pulmonary/Chest: Effort normal and breath sounds normal. Musculoskeletal: Left hand: She exhibits tenderness and bony tenderness. She exhibits normal range of motion and no laceration. Normal sensation noted. Normal strength noted. Tenderness at 5th metacarpal Skin: Skin is warm and dry. No rash noted. Bruising on left hand, over 4th and 5th metacarpal ASSESSMENT: Gretel Mendoza is a 36 y.o. female VISIT DIAGNOSIS AND ORDERS: 1. Left hand pain - XR Hand Min 3 views Left (Generic); Future PLAN: Xray with fracture at base of fifth metacarpal. Refer to ortho Intermittent ice and elevation of hand May use otc ibuprofen as needed for pain. Side effects and risks of prescribed medications discussed. Patient is aware of the risks discussed and denies having any further questions. Return or follow up with your primary care provider for any new or worsening symptoms. If you need immediate treatment, recommend that you go to the nearest emergency department. documented in this encounter Plan of Treatment Upcoming Encounters Date Type Specialty Care Team Description 12/11/2021 Office Visit Primary Care Harsh Holley, SCOW CAPTAIN [address] [place] [address] (Wo rk) 12/16/2021 Appointment Radiology Bib Leonardo MD 253 [place], [place] [address] (Wo ) Scheduled Referrals Name Type Priority Associated Order Schedule Diagnoses Referral to Outpatient Referral Routine Fracture of Ordered: Orthopaedics metacarpal base of 7 left hand, closed, initial encounter documented as of this encounter Results XR Hand Min 3 views Left (Generic) (06/14/2016 3:34 PM EST) Anatomical Region Laterality Modality Hand Left Digital Radiography Specimen (Source) Anatomical Location Collection Method / Collectio n Time Received Time / Laterality Volume Impressions 06/14/2016 4:42 PM EST Fracture involving the base of the fifth metacarpal Narrative 06/14/2016 4:42 PM EST EXAMINATION: XR HAND MIN 3 VIEWS LEFT (GENERIC) CLINICAL HISTORY: left hand pain after f all, pain at fifth metacarpal TECHNIQUE: PA, oblique, and lateral proj ections of the left hand COMPARISON: None FINDINGS: There is a nondisplaced fracture in the transverse plane along the base of the fifth metacarpal with adjacent soft tiss ue swelling. Remainder of the osseous structures appear intact. Procedure Note Oj Vernon DO - 06/14/2016 EXAMINATION: XR HAND MIN 3 VIEWS LEFT (G ENERIC) CLINICAL HISTORY: left hand pain after f all, pain at fifth metacarpal TECHNIQUE: PA, oblique, and lateral proj ections of the left hand COMPARISON: None FINDINGS: There is a nondisplaced fracture in the transverse plane along the base of the fifth metacarpal with adjacent soft tiss ue swelling. Remainder of the osseous structures appear intact. IMPRESSION Fracture involving the base of the fifth metacarpal Charleen Benavidez MD IMG DX ORDERABLES documented in this encounter Visit Diagnoses Diagnosis Left hand pain Pain in limb Fracture of metacarpal base of left hand , closed, initial encounter Visit for screening mammogram Other screening mammogram documented in this encounter Care Teams Forcer Maker Relationship Specialty Start Date End Date Bib Leonardo MD PCP - General Family Medicine 06/01/16 [address] [place] [address] documented as of this encounter
--- OUTSIDE RECORDS SUMMARY | 2021-12-09 07:22 | XMS_ITS | Encounter Summary ---
:1980 Author Organization [facility] [place] [address] Care Team Providers Name Role Phone Bib Leonardo MD Primary Care Provider Encounter Details Date Type Department Care Team Description 07/19/2019 Ancillary Ultrasound at [facility], Breast lum p in Procedure [place] female [address] [id number] [phone] Social History Tobacco Use Types Packs/Day Years Used Date Never Smoker Smokeless Tobacco: Never Used Sex Assigned at Date Recorded Female 12/22/2020 8:06 AM EDT documented as of this encounter Plan of Treatment Upcoming Encounters Date Type Specialty Care Team Description 12/11/2021 Office Visit Primary Care Harsh Holley APRN 253 [place], [place] [address] (Wo rk) 12/16/2021 Appointment Radiology Bib Leonardo MD [address] [place], [place] [address] (Wo rk) documented as of this encounter Procedures Procedure Name Priority Date/Time Associated Diagnosis Comme nts MAMMO BREAST US Routine 07/19/2019 11:45 AM Breast lump in Res ults for this LIMITED LEFT EST female procedure are i n the results section. [...] mammogram documented in this encounter Care Teams Pst Supervisor Relationship Specialty Start Date End Date Bib Leonardo MD PCP - General Family Medicine 06/01/[address] [place] [address] documented as of this encounter
--- OUTSIDE RECORDS SUMMARY | 2021-12-09 07:22 | XMS_ITS | Encounter Summary ---
:1980 [place] [address] Care Team Providers Name Role Phone Savanna Wright APRN Primary Care Provider [phone] Encounter Details Date Type Department Care Team Description 10/03/2014 Office Visit [facility] Savanna Wright, [address] [place] [address] 253 [facility] [phone] [place], [place] [address] (Wo rk) Social History Tobacco Use Types Packs/Day Years Used Date Never Assessed Sex Assigned at Date Recorded Female 12/22/2020 8:06 AM EDT documented as of this encounter Plan of Treatment Upcoming Encounters Date Type Specialty Care Team Description 12/11/2021 Office Visit Primary Care Harsh Holley APRN 253 [place], [place] [address] (Wo rk) 12/16/2021 Appointment Radiology Bib Leonardo MD [address] [place], [place] [address] (Wo rk) documented as of this encounter Visit Diagnoses Not on filedocumented in this encounter Care Teams Volunteer Coordinator Relationship Specialty Start Date End Date Savanna Wright APRN PCP - General 08/22/14 05/31/16 253 [place] [address] documented as of this encounter
--- OUTSIDE RECORDS SUMMARY | 2021-12-09 07:22 | XMS_ITS | Encounter Summary ---
:1980 Author Organization [facility] [place] [address] Care Team Providers Name Role Phone Bib Leonardo MD Primary Care Provider Reason for Visit Reason Onset Date Comments Results 12/04/2020 Encounter Details Date Type Department Care Team Description 12/04/2020 Telephone Primary Care at [facility] eKnia Clement RN Results [address] [place] [address] Social History Tobacco Use Types Packs/Day Years Used Date Never Smoker Smokeless Tobacco: Never Used Sex Assigned at Date Recorded Female 12/22/2020 8:06 AM EDT documented as of this encounter Miscellaneous Notes Telephone Encounter - Agnes Doyle RN - 12/19/2020 12:52 PM EDT Spoke with pt She is seeing Abril LEE on Tuesday for a physical She will discuss this at that time Telephone Encounter - Kenia Clement RN - 12/04/2020 3:22 PM EDT Looks like patient may have had additional testing on 12/03/2020 - see encounter dated yesterday Left message on home answering machine asking for a call back. Telephone Encounter - Kenia Clement RN - 12/04/2020 3:09 PM EDT ----- Message from Bib Leonardo MD sent at 12/03/2020 7:13 PM EDT ----- Abnormal breast imaging ----- Message ----- From: Agnes Doyle, RN Sent: 12/02/2020 2:46 PM EDT To: Bib Leonardo MD What is the diagnosis for the referral? ----- Message ----- From: Bib Leonardo MD Sent: 12/02/2020 12:40 PM EDT To: [facility] [facility] Team 3 In addition to additional imaging please also refer to [facility] general surgery. _PCR ----- Message ----- From: Department, Radiology Sent: 12/02/2020 12:24 PM EDT To: Bib Leonardo MD documented in this encounter Plan of Treatment Upcoming Encounters Date Type Specialty Care Team Description 12/11/2021 Office Visit Primary Care Harsh Holley APRN 253 [place], [place] [address] (Wo rk) 12/16/2021 Appointment Radiology Bib Leonardo MD [address] [place], [place] [address] (Wo rk) documented as of this encounter Visit Diagnoses Not on filedocumented in this encounter Care Teams Construction Skills Teacher Relationship Specialty Start Date End Date Bib Leonardo MD PCP - General Family Medicine 06/01/16 [address] [place] [address] documented as of this encounter
--- OUTSIDE RECORDS SUMMARY | 2021-12-09 07:22 | XMS_ITS | Encounter Summary ---
:1980 Author Organization [facility] [place] [address] Care Team Providers Name Role Phone Bib Leonardo MD Primary Care Provider Reason for Visit Reason Onset Date Comments Triage 12/23/2016 Encounter Details Date Type Department Care Team Description 12/23/2016 Telephone Primary Care at [facility] Kenia Clement wind turbine mechanic [address] [place] [address] Social History Tobacco Use Types Packs/Day Years Used Date Never Smoker Smokeless Tobacco: Never Used Sex Assigned at Date Recorded Female 12/22/2020 8:06 AM EDT documented as of this encounter Miscellaneous Notes Telephone Encounter - Kenia Clement RN - 12/23/2016 8:04 AM EDT I spoke with the patient. The injury occurred last evening. She chief complaint is pain in her back, rib area. She describes a cramping under the ribs. She says she was practicing jump. She says it was not high speed and she was not high up but landed in an awkward manner and fell. She says she fell onto her body . She says she may have hit head but she was wearing a helmet. She denies any loss of consciousness. Reports she got the wind knocked out of her , rested. She says she tried getting back on the bike but the back pain signaled to her that she should not ride anymore before getting this checked out. She denies any radiation of pain from the back to the arms or legs. TRIAGE CALL [place] questions/Assessment:as above Plan: Seek medical care within 2 to 4 hours. an appointment has been scheduled for today at 11:15AM with Dr Yu for 30 minutes. Name of Guideline/Protocol Used: back/neck injury Home Care/Patient Education per Protocol/Guideline: yes, she has taken ibuprofen . She has not iced the painful area at all , but she will do that now. Patient/Responsible alliance party voices an understanding of advice? yes Patient/Responsible alliance party intends to comply with action/disposition: yes Reference used: Telephone Triage Protocols for Nurses, 5th Edition, Bianca Stanton, 2016 documented in this encounter Plan of Treatment Upcoming Encounters Date Type Specialty Care Team Description 12/11/2021 Office Visit Primary Care Harsh Holley APRN [address] [place], [place] [address] (Wo rk) 12/16/2021 Appointment Radiology Bib Leonardo MD [address] [place], [place] [address] (Wo rk) documented as of this encounter Visit Diagnoses Not on filedocumented in this encounter Care Teams Interactive Marketing Strategist Relationship Specialty Start Date End Date Bib Leonardo MD PCP - General Family Medicine 06/01/16 [address] [place] [address] documented as of this encounter
--- OUTSIDE RECORDS SUMMARY | 2021-12-09 07:22 | XMS_ITS | Encounter Summary ---
:1980 [place] [address] Care Team Providers Name Role Phone Savanna Wright APRN Primary Care Provider [phone] Encounter Details Date Type Department Care Team Description 08/29/2014 Office Visit [facility] Savanna Wright, [address] [place] [address] 253 [facility] [phone] [place], [place] [address] (Wo rk) Social History Tobacco Use Types Packs/Day Years Used Date Never Assessed Sex Assigned at Date Recorded Female 12/22/2020 8:06 AM EDT documented as of this encounter Plan of Treatment Upcoming Encounters Date Type Specialty Care Team Description 12/11/2021 Office Visit Primary Care Harsh Holley APRN 253 [place], [place] [address] (Wo rk) 12/16/2021 Appointment Radiology Bib Leonardo MD [address] [place], [place] [address] (Wo rk) documented as of this encounter Visit Diagnoses Not on filedocumented in this encounter Care Teams Director Financial Services Relationship Specialty Start Date End Date Savanna Wright APRN PCP - General 08/22/14 05/31/16 253 [place] [address] documented as of this encounter
--- OUTSIDE RECORDS SUMMARY | 2021-12-09 07:22 | XMS_ITS | Encounter Summary ---
:1980 Author Organization [facility] [place] [address] Care Team Providers Name Role Phone Apple Leonardo MD Primary Care Provider Encounter Details Date Type Department Care Team Description 06/06/2018 Telephone Primary Care at [facility] Natasha Sanchez RN [address] [place] [address] Social History Tobacco Use Types Packs/Day Years Used Date Never Smoker Smokeless Tobacco: Never Used Sex Assigned at Date Recorded Female 12/22/2020 8:06 AM EDT documented as of this encounter Miscellaneous Notes Telephone Encounter - Natasha Sanchez RN - 06/06/2018 2:00 PM EST Spoke with pt and advised below. Rx sent. Telephone Encounter - Apple Leonardo MD - 06/06/2018 1:46 PM EST Ok to treat valtrex 2000 mg po q 12 hrs x 24 hrs garret after onset. Provide rx and 3 refills. She can take picture. Can have appt if would like or as needed. Telephone Encounter - Natasha Sanchez RN - 06/06/2018 11:51 AM EST Spoke with pt and she reports having a cold sore. She said it is on the right corner of upper and lower lip. She said sx initailly started yesterday and today broke out. She said they are not draining. She said she has had cold sores since she was 4 years ols. She said she bought OTC but said she was on a prescription before. She is unsure of name but has been meaning to ask about it at physical but never has a cold sore during the time. OKay to send in an RX or would you want pt to be seen. Telephone Encounter - Natasha Sanchez RN - 06/06/2018 11:49 AM EST Copied from [facility] #[id number]. Topic: Triage - Con Triage >> Jun 06, 2018 11:44 AM Charleen Mack wrote: Reason: Cold Sores ?? PCP: APPLE LEONARDO ?? Message: Patient called stating that she has cold sores and states that she would like to know if she could get a prescription sent to [facility]. Please call to advise. ?? Okay to Leave a Message: Yes documented in this encounter Plan of Treatment Upcoming Encounters Date Type Specialty Care Team Description 12/11/2021 Office Visit Primary Care Harsh Holley APRN 253 [place], [place] [address] (Wo rk) 12/16/2021 Appointment Radiology Apple Leonardo MD [address] [place], [place] [address] (Wo rk) documented as of this encounter Visit Diagnoses Not on filedocumented in this encounter Care Teams Director Non Profit Relationship Specialty Start Date End Date Apple Leonardo MD PCP - General Family Medicine 06/01/16 [address] [place] [address] documented as of this encounter
[2021-12-09 07:57] LABS: *AMPHETAMINES SCREEN URINE Negative (Negative); *BARBITURATES SCREEN URINE Negative (Negative); *BENZODIAZEPINES SCREEN URINE Negative (Negative); Cannabinoids THC Negative (Negative); Cocaine Screen,Urine Negative (Negative); METHADONE URINE SCREEN Negative (Negative); OPIATES URINE SCREEN Negative (Negative); Tricyclic Antidepressants Negative (Negative)
== END 2021-12-09 08:02 | disposition home or self-care (01) ==
PROVIDERS: Emergency Provider Student in an Organized Health Care Education/Training Program
DX: I49.9 Cardiac arrhythmia, unspecified (principal)
CPT/HCPCS: 36415; 80053; 80307; 81025; 93005; 96360; 99284; 83735; 83880; 84443; 84484; 85025; 85379; 93010

== ENCOUNTER 2021-12-09 07:33 | Outpatient (RCR) | payer OTHER, SELFPAY ==
--- NOTE | 2021-12-09 07:00 | HOLTER_ITS ---
APPROVED REPORT Conclusion This is a 48-hour Holter monitor, reportedly ordered for arrhythmia Predominant rhythm was sinus with an average heart rate of 54 Minimum heart rate was 40, maximum 105 There were no significant atrial or ventricular dysrhythmias. There was no atrial fibrillation, no h igh-grade AV block, no pauses greater than 3 seconds No patient symptoms were reported
== END 2021-12-13 23:59 | disposition home or self-care (01) ==
LOC: RT 07:33
PROVIDERS: Visit Provider Student in an Organized Health Care Education/Training Program
DX: I49.9 Cardiac arrhythmia, unspecified (principal)
CPT/HCPCS: 93225; 93226